=== PATIENT | female | born 1990 | race Hispanic/Latino ===

== ENCOUNTER 2024-03-11 11:48 | Emergency (ER) | payer SELFPAY ==
--- OUTSIDE RECORDS SUMMARY | 2024-03-11 11:55 | XMS REPORT | Continuity of Care Document ---
Author Name Unknown Address [address] [facility] [place] [address] [facility] thconnect Address [address] [facility] [address] [place] [address] Support Name Relationship Address Phone LOR ARCHER SI [address] [place] [address] LOR ARCHER Personal Relationship [address] [facility] [address] [address] [place] [address] NO PHYSICIAN, . Primary Care Physician Unknown Un available MD Janelle Lundberg Emergency Provider [address] [place] [address] ANGEL TOLEDO Next of Kin [address] [place] [address] JOSE TOLEDO Guarantor [address] [place] [address] LOR ARCHER Personal Relationship [address] [place] [address] EDWARD BYRNES, ELISEO Crawford Emergency Provider [address] [place] [address] PHYSICIAN, NO Primary Care Physician Unknown Unav ailable GAIL PINEDA [place] [address] MD PATRICIA PINK Other Provider [address] [place] [address] MD MICHELLE IBARRA Emergency Provider [address] [place] [address] LOR BARNES Emergency Contact [address] [place] [address] Unavailable MD BLAIRE LIMON Emergency Provider [address] [place] [address] MD ELISEO LEON Emergency Provider [address] [place] [address] MD EDOUARD PALENCIA Admitting Provider [address] [place] [address] MD SHAUN HO Emergency Provider [address] [place] [address] Care Team Providers Care Garden Consultant Name Role Phone Janelle Lundberg Attending Clinician Unavailab ASHLEE Sandhu Attending Clinician Unavailable Shaun Ho Attending Clinician Unavailab yoel LANDRY_DMEETRIUS Attending Clinician Unavailable EDOUARD PALENCIA Attending Clinician Unavail able BLAIRE LIMON Attending Clinician Unavailab Patricia Camarillo Attending Clinician Unavailable MICHELLE IBARRA Attending Clinician Unavailabl e KEN Attending Clinician Unavailable AMEENA HECK Attending Clinician Unavailable ELISEO LEON Attending Clinician Unavail able [address] Attending Clinician Unavailable JULIUS QUIÑONES Attending Clinician Unavailable HERMILA BRAVO Attending Clinician Unavailable TORIBIO MARIE Attending Clinician Unavaila URIEL Cazares Attending Clinician Unavaila ble AIDE Admitting Clinician Unavailable EDOUARD PALENCIA Admitting Clinician Unavail able Patricia Pink Admitting Clinician Unavailable KEN Admitting Clinician Unavailable TORIBIO MARIE Admitting Clinician Unavaila MICHELLE Paredes Admitting Clinician Unavailabl e Payers Payer Name Policy Type Policy Number Effective Date Expirati on Date Source [facility] (MEDICAID REPLACEMENT - HMO) [id number] Allergies, Adverse Reactions, Alerts Allergy Name Allergy Type Status Severity Reaction(s) Onset Date Inactive Date Treating Clinician Comments Source No Known Allergie s DA Active U 05-08 00:00: 00 [facility] No Known Allergie s DA Active U 05-08 00:00: 00 [facility] No Known Allergie s DA Active U 12-10 00:00: 00 [facility] Procedures Procedure Date / Time Performed Performing Clinicia n Source [id number] 2021-07-14 00:00:00 [facility]01 [facility] [id number] 2021-07-14 00:00:00 [facility]01 [facility] [id number] 2021-07-14 00:00:00 [facility]01 [facility] [id number] 2021-07-10 00:00:00 [facility]01 [facility] [id number] 2021-07-10 00:00:00 [facility]01 [facility] [id number] 2021-07-10 00:00:00 [facility]01 [facility] Encounters Start Date/Time End Date/Time Encounter Type Admission Type Attending [facility] Facility Care Department Encounter ID Source 2024-01-22 11:17:19 2024-01-22 11:17:[address] [facility] [id number] Jack Martinez 2023-08-13 16:56:00 2023-08-13 18:15:00 emergency [facility] [id number] 2023-08-13 16:56:00 2023-08-13 18:15:00 Emergency ER Janelle Lundberg [facility] [id number] [facility] 2022-12-01 05:12:00 2022-12-01 06:28:00 Emergency ER ASHLEE REYNOSO [facility] [id number] [facility] 2022-05-06 14:27:00 2022-05-06 16:24:00 Emergency ER Shaun Ho [facility] [id number] [facility] 2022-02-08 11:38:00 2022-02-08 11:38:00 Outpatient GRIS_PING DIOR [id number] [facility] 2022-02-08 11:38:00 2022-02-08 11:38:00 Outpatient LISTER_SEEMAI DESEAN [facility] [id number] [facility] 2021-10-21 00:45:00 2021-10-26 14:50:00 Inpatient ER SILVANO PALENCIACindy [facility] [id number] [facility] 2021-10-11 16:47:00 2021-10-11 20:26:00 Emergency ER BLAIRE LIMON [facility] [id number] [facility] 2021-05-23 17:45:00 2021-07-21 19:55:00 Inpatient EL Patricia Pink [facility] OBPP [id number] [facility] 2021-05-26 23:35:00 2021-05-26 23:35:00 [facility] [id number] [facility] 2021-05-08 12:16:00 2021-05-08 17:10:00 Emergency EM Patricia Pink [facility] E[facility]L [id number] [facility] 2021-05-02 11:15:00 2021-05-02 13:14:00 Emergency ER MICHELLE IBARRA [facility] [id number] [facility] 2020-12-20 04:38:00 2020-12-20 04:38:00 Outpatient AMBREEN_RICK [facility] [id number] [facility] 2019-12-08 02:21:00 2019-12-08 02:21:00 Outpatient AMBREEN_FAR HANA [facility] [id number] [facility] 2019-11-29 00:52:00 2019-11-29 03:44:00 Emergency ER AMEENA HECK [facility] [id number] [facility] 2018-10-15 18:20:00 2018-10-15 19:10:00 Emergency ER ELISEO LEON [facility] [id number] [facility] 2017-04-04 12:18:00 2017-04-04 14:59:[address] [facility] [id number] [facility] 2015-10-08 18:45:00 2015-10-08 22:02:00 Emergency ER JULIUS QUIÑONES [facility] [id number] [facility] 2014-12-07 17:36:00 2014-12-07 20:55:00 Emergency ER HERMILA BRAVO [facility] [id number] [facility] 2014-06-20 19:54:00 2014-06-20 22:04:00 Emergency ER Shaun Ho [facility] [id number] [facility] 2012-07-25 04:30:00 2012-07-27 12:00:00 Inpatient TORIBIO ORTIZ [facility] MOB [id number] [facility] 2012-04-07 19:23:00 2012-04-07 21:22:00 Emergency ER BRENT URIEL [facility] [id number] [facility] 2011-11-03 14:15:00 2011-11-03 20:15:00 Inpatient ER TORIBIO MARIE [facility] MOB [id number] [facility] 2011-09-08 18:26:00 2011-09-09 01:16:00 Emergency ER SAMUELMARIANA BURGESSE [facility] [id number] [facility] 2005-08-08 11:07:00 2005-08-08 18:30:00 [facility] [id number] [facility] Results Test Description Test Time Test Comments Results Result Co mments Source CULTURE, [id number] 11:32:26SPECIMEN NUMBER: [id number] CULTURE, ROUTINE SPECIMEN NUMBER: [id number] SPECIMEN COMMENT: AMINTA ANAL SOURCE: ANAL REPORT STATUS: FINAL FINAL REPORT: 01/25/2024 MODERATE NORMAL SKIN WILIAM PRELIMINARY REPORT: 01/24/2024 MODERATE GRAM POSITIVE WILIAM PRELIMINARY REPORT #2: 01/25/2024 MODERATE MIXED GRAM POSITIVE FLORAHGB [id number] 23:15:00* Test Item Value Reference Range Interpretation Comme nts HEMOGLOBIN (test code = HGB) 8.1 g/dL 10.1-13.8 L HEMATOCRIT (test code = HCT) 25.4 % 32.5-41.8 L CBC W/AUTO [id number] 05:57:00* Test Item Value Reference Range Interpretation Comme nts WHITE BLOOD CELL (test code = WBC) 6.9 K/mm3 6.5-12.3 N RED BLOOD CELL (test code = RBC) 1.91 M/mm3 3.51-4.69 L HEMOGLOBIN (test code = HGB) 6.9 g/dL 10.1-13.8 LL RESULTS CALLED Suad GREEN RNREAD BACK & CONFIRMED? YESBY [id number] 07/19/21 0557 HEMATOCRIT (test code = HCT) 22.4 % 32.5-41.8 L MEAN CELL VOLUME (test code = MCV) 117.3 fL 84.6-96.6 H MEAN CELL HGB (test code = MCH) 36.1 pg 27.3-33.9 H MEAN CELL HGB CONCETRATION (test code = MCHC) 30.8 gm/dL 32.0-34.2 L RED CELL DISTRIBUTION WIDTH (test code = RDW) 15.7 % 12.2-16.3 N PLATELET COUNT (test code = PLT) 194 K/mm3 134-363 N MEAN PLATELET VOLUME (test code = MPV) 9.4 fL 9.2-12.7 N NEUTROPHIL % (test code = NT%) 69.5 % 57.9-77.3 N LYMPHOCYTE % (test code = LY%) 18.0 % 14.5-29.7 N MONOCYTE % (test code = MO%) 7.9 % 3.6-10.2 N EOSINOPHIL % (test code = EO%) 3.5 % 0.0-3.0 H BASOPHIL % (test code = BA%) 0.4 % 0.1-0.9 N NEUTROPHIL # (test code = NT#) 4.8 K/mm3 LYMPHOCYTE # (test code = LY#) 1.2 K/mm3 MONOCYTE # (test code = MO#) 0.5 K/mm3 EOSINOPHIL # (test code = EO#) 0.24 K/mm3 BASOPHIL # (test code = BA#) 0.0 K/mm3 RBC MORPHOLOGY REQUIRED (test code = RBCM) NORMAL NORMAL PLATELET MORPHOLOGY REQUIRED (test code = PLTMR) NORMAL NORMAL HGB [id number] 09:11:00* Test Item Value Reference Range Interpretation Comme nts HEMOGLOBIN (test code = HGB) 6.9 g/dL 10.1-13.8 LL RESULTS CALLED Suad SANTILLANREAD BACK & CONFIRMED? YBY [id number] 07/18/21 0911Results verified by repeat analysis HEMATOCRIT (test code = HCT) 22.5 % 32.5-41.8 L BASIC METABOLIC [id number] 09:57:00* Test Item Value Reference Range Interpretation Comme nts SODIUM (test code = NA) 142 mEq/L 135-145 N POTASSIUM (test code = K) 4.9 mEq/L 3.5-5.0 N CHLORIDE (test code = CL) 109 mEq/L 100-115 N CARBON DIOXIDE (test code = CO2) 25 mEq/L 22-31 N ANION GAP (test code = GAP) 12.70 10-20 N GLUCOSE (test code = GLU) 118 mg/dL 65-110 H BLOOD UREA NITROGEN (test co de = BUN) 17 mg/dL 7-18 N GLOMERULAR FILTRATION RATE ( test code = GFR) 64 ml/min >60 N CREATININE (test code = CREAT) 1.0 mg/dL 0.5-1.0 N CALCIUM (test code = CA) 8.1 mg/dL 8.4-10.2 L CBC W/AUTO [id number] 09:31:00* Test Item Value Reference Range Interpretation Comme nts WHITE BLOOD CELL (test code = WBC) 6.7 K/mm3 6.5-12.3 N RED BLOOD CELL (test code = RBC) 1.83 M/mm3 3.51-4.69 L HEMOGLOBIN (test code = HGB) 6.5 g/dL 10.1-13.8 LL RESULTS CALLED Suad Celena FRIEDMAN CORPUZREAD BACK & CONFIRMED? YES BY MANDI 07/16/21 4553 HEMATOCRIT (test code = HCT) 21.3 % 32.5-41.8 L MEAN CELL VOLUME (test code = MCV) 116.4 fL 84.6-96.6 H MEAN CELL HGB (test code = MCH) 35.5 pg 27.3-33.9 H MEAN CELL HGB CONCETRATION (test code = MCHC) 30.5 gm/dL 32.0-34.2 L RED CELL DISTRIBUTION WIDTH (test code = RDW) 15.8 % 12.2-16.3 N PLATELET COUNT (test code = PLT) 171 K/mm3 134-363 N MEAN PLATELET VOLUME (test code = MPV) 9.5 fL 9.2-12.7 N NEUTROPHIL % (test code = NT%) 76.0 % 57.9-77.3 N LYMPHOCYTE % (test code = LY%) 13.6 % 14.5-29.7 L MONOCYTE % (test code = MO%) 6.7 % 3.6-10.2 N EOSINOPHIL % (test code = EO%) 2.8 % 0.0-3.0 N BASOPHIL % (test code = BA%) 0.3 % 0.1-0.9 N NEUTROPHIL # (test code = NT#) 5.1 K/mm3 LYMPHOCYTE # (test code = LY#) 0.9 K/mm3 MONOCYTE # (test code = MO#) 0.5 K/mm3 EOSINOPHIL # (test code = EO#) 0.19 K/mm3 BASOPHIL # (test code = BA#) 0.0 K/mm3 RBC MORPHOLOGY REQUIRED (test code = RBCM) NORMAL NORMAL PLATELET MORPHOLOGY REQUIRED (test code = PLTMR) NORMAL NORMAL CBC W/AUTO [id number] 08:38:00* Test Item Value Reference Range Interpretation Comme nts WHITE BLOOD CELL (test code = WBC) 6.9 K/mm3 6.5-12.3 N RED BLOOD CELL (test code = RBC) 1.83 M/mm3 3.51-4.69 L HEMOGLOBIN (test code = HGB) 6.6 g/dL 10.1-13.8 LL RESULTS CALLED Suad LUNA ARLENEREAD BACK & CONFIRMED? BRITTANY ShaynaSANDY.MR 07/14/21 0836 HEMATOCRIT (test code = HCT) 21.6 % 32.5-41.8 L MEAN CELL VOLUME (test code = MCV) 118.0 fL 84.6-96.6 H MEAN CELL HGB (test code = MCH) 36.1 pg 27.3-33.9 H MEAN CELL HGB CONCETRATION (test code = MCHC) 30.6 gm/dL 32.0-34.2 L RED CELL DISTRIBUTION WIDTH (test code = RDW) 16.0 % 12.2-16.3 N PLATELET COUNT (test code = PLT) 136 K/mm3 134-363 N MEAN PLATELET VOLUME (test code = MPV) 9.9 fL 9.2-12.7 N NEUTROPHIL % (test code = NT%) 78.7 % 57.9-77.3 H LYMPHOCYTE % (test code = LY%) 11.5 % 14.5-29.7 L MONOCYTE % (test code = MO%) 5.3 % 3.6-10.2 N EOSINOPHIL % (test code = EO%) 3.3 % 0.0-3.0 H BASOPHIL % (test code = BA%) 0.3 % 0.1-0.9 N NEUTROPHIL # (test code = NT#) 5.5 K/mm3 LYMPHOCYTE # (test code = LY#) 0.8 K/mm3 MONOCYTE # (test code = MO#) 0.4 K/mm3 EOSINOPHIL # (test code = EO#) 0.23 K/mm3 BASOPHIL # (test code = BA#) 0.0 K/mm3 RBC MORPHOLOGY REQUIRED (test code = RBCM) NORMAL NORMAL PLATELET MORPHOLOGY REQUIRED (test code = PLTMR) NORMAL NORMAL PLACENTA THIRD [id number] 10:35:00* Test Item Value Reference Range Interpretation Comme nts PLACENTA THIRD TRIMESTER (test code = PLACIII) RUN DATE: 08/10/21 [facility] PAGE 1 RUN TIME: 0004 Specimen Inquiry RUN USER: INTERFACE PATIENT: AICHA BARNES LOC: AJIT U #: [id number] AGE/SX: 31/F ROOM: [facility] RE05/23/21REG DR: Patricia Pink MD : 89 BED: A DIS: 07/21/21 STATUS: DIS IN TLOC: SPEC #: [id number] RECD: 07/11/21 STATUS: IRAIS AYON #: [id number] GENI: 07/10/21- SUBM DR: Patricia Pink MD ENTERED: 07/11/21 SP TYPE: PLACIII OTHR DR: Ric Rivera MD ORDERED: LEVEL V SURGICA CODES: [id number] - PLACENTA, NOS COPIES TO: Patricia Pink MD [id number] [place] [address] [email or web address] Ric Rivera MD [address] [place] [address] [email or web address] PROCEDURES: LEVEL V SURGICA (Incomplete) TISSUES: PLACENTA, NOS - PLACENTA CLINICAL HISTORY 31 year old, 33.2 weeks, section, gestational hypertension, PIH (wpd) FINAL DIAGNOSIS Placenta, section: - placenta with third trimester villous morphology, 299 gms (approximately 25th percentile) - villous infarcts, 0.2 - 0.5 cm - subchorionic and perivillous fibrin deposition - few hyalinized avascular villi, suggestive of thrombotic vasculopathy - retroplacental hematomas, up to 0.8 cm - membranes: free of acute inflammation - trivascular umbilical cord: focal minimal acute vasculitis CPT: 98886 ssa/wpd CONTINUED ON NEXT PAGE RUN DATE: 08/10/21 [facility] PAGE 2 RUN TIME: 0004 Specimen Inquiry RUN USER: INTERFACE SPEC #: [id number] PATIENT: AICHA BARNES #[id number] (Continued) --- GROSS DESCRIPTION The specimen was received in a container labeled with the patient's name, unit number and designated "placenta". The following attributes are observed: Cord insertion: 6 cm from margin Cord length: 36 cm Number of vessels: 3 Cord color: Blue-king Other cord findings: None surface findings: Steel blue, wrinkled, glistening Vasculature: Unremarkable blood vasculature Membranes rupture site: 8 cm to margin Membrane color: King Other membrane findings: Thickened and opaque The trimmed placental weight: 299 gm Disk measurement: 21 x 20 x 1.8 cm Accessory lobes: None Maternal surface: Lobulated and intact Parenchyma: Red, beefy, and spongy Parenchyma lesions: Peripheral, king-red, firm lesions measuring up to 0.8 cm and involving less than 5% of the total parenchyma (in A4) Cassettes: A1 through A4 hz/wpd 07/11/21 Signed Yennifer Schmidt 07/13/21 1035 END OF REPORT COMPREHENSIVE METABOLIC [id number] 06:27:00* Test Item Value Reference Range Interpretation Comme nts SODIUM (test code = NA) 140 mEq/L 135-145 N POTASSIUM (test code = K) 5.0 mEq/L 3.5-5.0 N CHLORIDE (test code = CL) 111 mEq/L 100-115 N CARBON DIOXIDE (test code = CO2) 21 mEq/L 22-31 L ANION GAP (test code = GAP) 13.10 10-20 N GLUCOSE (test code = GLU) 93 mg/dL 65-110 N BLOOD UREA NITROGEN (test co de = BUN) 26 mg/dL 7-18 H GLOMERULAR FILTRATION RATE ( test code = GFR) 64 ml/min >60 N CREATININE (test code = CREAT) 1.0 mg/dL 0.5-1.0 N TOTAL PROTEIN (test code = PROT) 5.0 gm/dL 6.3-8.2 L ALBUMIN (test code = ALB) 1.8 gm/dL 3.4-4.8 L CALCIUM (test code = CA) 7.4 mg/dL 8.4-10.2 L BILIRUBIN TOTAL (test code = BILT) 0.1 mg/dL 0.2-1.0 L SGOT/AST (test code = AST) 32 units/L 15-37 N SGPT/ALT (test code = ALT) 21 units/L 12-78 N ALKALINE PHOSPHATASE TOTAL ( test code = ALKP) 82 units/L 46-116 N CBC W/AUTO [id number] 06:11:00* Test Item Value Reference Range Interpretation Comme nts WHITE BLOOD CELL (test code = WBC) 7.7 K/mm3 6.5-12.3 N RED BLOOD CELL (test code = RBC) 1.79 M/mm3 3.51-4.69 L HEMOGLOBIN (test code = HGB) 6.5 g/dL 10.1-13.8 LL RESULTS CALLED Suad MORENO RNREAD BACK & CONFIRMED? YESBY [id number] 07/13/21 0610 HEMATOCRIT (test code = HCT) 21.4 % 32.5-41.8 L MEAN CELL VOLUME (test code = MCV) 119.6 fL 84.6-96.6 H MEAN CELL HGB (test code = MCH) 36.3 pg 27.3-33.9 H MEAN CELL HGB CONCETRATION (test code = MCHC) 30.4 gm/dL 32.0-34.2 L RED CELL DISTRIBUTION WIDTH (test code = RDW) 16.2 % 12.2-16.3 N PLATELET COUNT (test code = PLT) 113 K/mm3 134-363 L MEAN PLATELET VOLUME (test code = MPV) 10.7 fL 9.2-12.7 N NEUTROPHIL % (test code = NT%) 74.9 % 57.9-77.3 N LYMPHOCYTE % (test code = LY%) 15.0 % 14.5-29.7 N MONOCYTE % (test code = MO%) 6.7 % 3.6-10.2 N EOSINOPHIL % (test code = EO%) 2.5 % 0.0-3.0 N BASOPHIL % (test code = BA%) 0.3 % 0.1-0.9 N NEUTROPHIL # (test code = NT#) 5.8 K/mm3 LYMPHOCYTE # (test code = LY#) 1.2 K/mm3 MONOCYTE # (test code = MO#) 0.5 K/mm3 EOSINOPHIL # (test code = EO#) 0.19 K/mm3 BASOPHIL # (test code = BA#) 0.0 K/mm3 RBC MORPHOLOGY REQUIRED (test code = RBCM) NORMAL NORMAL PLATELET MORPHOLOGY REQUIRED (test code = PLTMR) NORMAL NORMAL COMPREHENSIVE METABOLIC [id number] 06:05:00* Test Item Value Reference Range Interpretation Comme nts SODIUM (test code = NA) 134 mEq/L 135-145 L POTASSIUM (test code = K) 4.8 mEq/L 3.5-5.0 N CHLORIDE (test code = CL) 107 mEq/L 100-115 N CARBON DIOXIDE (test code = CO2) 20 mEq/L 22-31 L ANION GAP (test code = GAP) 12.10 10-20 N GLUCOSE (test code = GLU) 124 mg/dL 65-110 H BLOOD UREA NITROGEN (test co de = BUN) 28 mg/dL 7-18 H GLOMERULAR FILTRATION RATE ( test code = GFR) 52 ml/min >60 L CREATININE (test code = CREAT) 1.2 mg/dL 0.5-1.0 H TOTAL PROTEIN (test code = PROT) 5.2 gm/dL 6.3-8.2 L ALBUMIN (test code = ALB) 1.8 gm/dL 3.4-4.8 L CALCIUM (test code = CA) 7.2 mg/dL 8.4-10.2 L BILIRUBIN TOTAL (test code = BILT) 0.1 mg/dL 0.2-1.0 L SGOT/AST (test code = AST) 25 units/L 15-37 N SGPT/ALT (test code = ALT) 20 units/L 12-78 N ALKALINE PHOSPHATASE TOTAL ( test code = ALKP) 93 units/L 46-116 N CBC W/AUTO [id number] 05:53:00* Test Item Value Reference Range Interpretation Comme nts WHITE BLOOD CELL (test code = WBC) 8.7 K/mm3 6.5-12.3 N RED BLOOD CELL (test code = RBC) 1.94 M/mm3 3.51-4.69 L HEMOGLOBIN (test code = HGB) 7.0 g/dL 10.1-13.8 L RESULTS CALLED Suad MORENO RN.READ BACK & CONFIRMED YESBY [id number] 07/12/21 0551 HEMATOCRIT (test code = HCT) 22.8 % 32.5-41.8 L MEAN CELL VOLUME (test code = MCV) 117.5 fL 84.6-96.6 H MEAN CELL HGB (test code = MCH) 36.1 pg 27.3-33.9 H MEAN CELL HGB CONCETRATION (test code = MCHC) 30.7 gm/dL 32.0-34.2 L RED CELL DISTRIBUTION WIDTH (test code = RDW) 16.2 % 12.2-16.3 N PLATELET COUNT (test code = PLT) 107 K/mm3 134-363 L MEAN PLATELET VOLUME (test code = MPV) 10.5 fL 9.2-12.7 N NEUTROPHIL % (test code = NT%) 75.1 % 57.9-77.3 N LYMPHOCYTE % (test code = LY%) 16.6 % 14.5-29.7 N MONOCYTE % (test code = MO%) 6.7 % 3.6-10.2 N EOSINOPHIL % (test code = EO%) 0.6 % 0.0-3.0 N BASOPHIL % (test code = BA%) 0.2 % 0.1-0.9 N NEUTROPHIL # (test code = NT#) 6.5 K/mm3 LYMPHOCYTE # (test code = LY#) 1.4 K/mm3 MONOCYTE # (test code = MO#) 0.6 K/mm3 EOSINOPHIL # (test code = EO#) 0.05 K/mm3 BASOPHIL # (test code = BA#) 0.0 K/mm3 RBC MORPHOLOGY REQUIRED (test code = RBCM) NORMAL NORMAL PLATELET MORPHOLOGY REQUIRED (test code = PLTMR) NORMAL NORMAL PIH [id number] 13:36:00* Test Item Value Reference Range Interpretation Comme nts CREATININE (test code = CREAT) 1.1 mg/dL 0.5-1.0 H SGOT/AST (test code = AST) 35 units/L 15-37 N SGPT/ALT (test code = ALT) 21 units/L 12-78 N LACTIC DEHYDROGENASE(LDH) (t est code = LDH) 434 units/L 81-234 H : *[id number] 13:36:00* Test Item Value Reference Range Interpretation Comme nts MAGNESIUM (test code = MAG) 5.6 mg/dL 1.8-2.4 HH RESULTS VERIFIED BY REPEAT ANALYSISRESULTS CALLED TO OKSANA RamirezREAD BACK & CONFIRMED? YES.BY [email or web address] 07/11/21 1335. : *CBC W/AUTO [id number] 07:06:00* Test Item Value Reference Range Interpretation Comme nts WHITE BLOOD CELL (test code = WBC) 13.3 K/mm3 6.5-12.3 H Results verified by repeat analysis RED BLOOD CELL (test code = RBC) 2.45 M/mm3 3.51-4.69 L HEMOGLOBIN (test code = HGB) 8.8 g/dL 10.1-13.8 L HEMATOCRIT (test code = HCT) 27.8 % 32.5-41.8 L MEAN CELL VOLUME (test code = MCV) 113.5 fL 84.6-96.6 H MEAN CELL HGB (test code = MCH) 35.9 pg 27.3-33.9 H MEAN CELL HGB CONCETRATION (test code = MCHC) 31.7 gm/dL 32.0-34.2 L RED CELL DISTRIBUTION WIDTH (test code = RDW) 15.8 % 12.2-16.3 N PLATELET COUNT (test code = PLT) 116 K/mm3 134-363 L MEAN PLATELET VOLUME (test code = MPV) 10.5 fL 9.2-12.7 N NEUTROPHIL % (test code = NT%) 90.4 % 57.9-77.3 H LYMPHOCYTE % (test code = LY%) 5.5 % 14.5-29.7 L MONOCYTE % (test code = MO%) 3.5 % 3.6-10.2 L EOSINOPHIL % (test code = EO%) 0.0 % 0.0-3.0 N BASOPHIL % (test code = BA%) 0.1 % 0.1-0.9 N NEUTROPHIL # (test code = NT#) 12.0 K/mm3 LYMPHOCYTE # (test code = LY#) 0.7 K/mm3 MONOCYTE # (test code = MO#) 0.5 K/mm3 EOSINOPHIL # (test code = EO#) 0 K/mm3 BASOPHIL # (test code = BA#) 0.0 K/mm3 RBC MORPHOLOGY REQUIRED (test code = RBCM) NORMAL NORMAL PLATELET MORPHOLOGY REQUIRED (test code = PLTMR) NORMAL NORMAL CAPILLARY BLOOD [id number] 21:19:00* Test Item Value Reference Range Interpretation Comme nts CAPILLARY BLOOD GAS PH (test code = PHC) 7.134 7.35-7.45 LL CAPILLARY BLOOD GAS PCO2 (te st code = PCO2C) 55.8 mmHg CAPILLARY BLOOD GAS PO2 (pepe t code = PO2C) 17.4 mmHg CBG HCO3 (test code = HCO3C) 18.3 meq/L CBG BASE EXCESS (test code = BEC) -11.2 CBG O2 SATURATION (test code = SATC) 16.2 % CAPILLARY BLOOD GAS TYPE (te st code = TYPEC) CBLV CAPILLARY BLOOD GAS FIO2 (te st code = FIO2C) 21.0 % CAPILLARY BLOOD [id number] 21:19:00* Test Item Value Reference Range Interpretation Comme nts CAPILLARY BLOOD GAS PH (test code = PHC) 7.039 7.35-7.45 LL CAPILLARY BLOOD GAS PCO2 (te st code = PCO2C) 71.5 mmHg CAPILLARY BLOOD GAS PO2 (pepe t code = PO2C) 10.0 mmHg CBG HCO3 (test code = HCO3C) 18.9 meq/L CBG BASE EXCESS (test code = BEC) -13.0 CAPILLARY BLOOD GAS TYPE (te st code = TYPEC) CBLA CAPILLARY BLOOD GAS FIO2 (te st code = FIO2C) 21.0 % UR CREATININE CLEARANCE [id number] 18:43:00* Test Item Value Reference Range Interpretation Comme nts CREATININE CLEARANCE RESULT (test code = CREATCLR) 94 ml/min 70-120 N CREATININE (test code = CREAT) 1.0 mg/dL 0.5-1.0 N UR CREATININE RANDOM (test c ode = CREATU) 68.6 mg/dL UR VOLUME (test code = VOL) 2000 ML UR PROTEIN [id number] 18:43:00* Test Item Value Reference Range Interpretation Comme nts UR PROTEIN RANDOM (test code = PROTU) 224.4 mg/dL UR PROTEIN 24HR (test code = [id number]) 4488 mg/24HR 20-150 HH RESULTS CALLED Suad ERNST.READ BACK & CONFIRMED? YES.BY [id number] 07/10/21 6033.Units for 24 HR Urine Protein have changed: New Units = MG/24HR [facility] [id number] 06:48:00* Test Item Value Reference Range Interpretation Comme nts CREATININE (test code = CREAT) 1.0 mg/dL 0.5-1.0 N SGOT/AST (test code = AST) 26 units/L 15-37 N SGPT/ALT (test code = ALT) 18 units/L 12-78 N LACTIC DEHYDROGENASE(LDH) (t est code = LDH) 237 units/L 81-234 H : *CBC W/AUTO [id number] 06:41:00* Test Item Value Reference Range Interpretation Comme nts WHITE BLOOD CELL (test code = WBC) 6.8 K/mm3 6.5-12.3 N RED BLOOD CELL (test code = RBC) 2.46 M/mm3 3.51-4.69 L HEMOGLOBIN (test code = HGB) 8.8 g/dL 10.1-13.8 L HEMATOCRIT (test code = HCT) 27.5 % 32.5-41.8 L MEAN CELL VOLUME (test code = MCV) 111.8 fL 84.6-96.6 H MEAN CELL HGB (test code = MCH) 35.8 pg 27.3-33.9 H MEAN CELL HGB CONCETRATION ( test code = MCHC) 32.0 gm/dL 32.0-34.2 N RED CELL DISTRIBUTION WIDTH (test code = RDW) 15.7 % 12.2-16.3 N PLATELET COUNT (test code = PLT) 116 K/mm3 134-363 L MEAN PLATELET VOLUME (test c ode = MPV) 10.2 fL 9.2-12.7 N NEUTROPHIL % (test code = NT%) 71.2 % 57.9-77.3 N LYMPHOCYTE % (test code = LY%) 18.3 % 14.5-29.7 N MONOCYTE % (test code = MO%) 6.3 % 3.6-10.2 N EOSINOPHIL % (test code = EO%) 3.2 % 0.0-3.0 H BASOPHIL % (test code = BA%) 0.4 % 0.1-0.9 N NEUTROPHIL # (test code = NT#) 4.9 K/mm3 LYMPHOCYTE # (test code = LY#) 1.3 K/mm3 MONOCYTE # (test code = MO#) 0.4 K/mm3 EOSINOPHIL # (test code = EO#) 0.22 K/mm3 BASOPHIL # (test code = BA#) 0.0 K/mm3 RBC MORPHOLOGY REQUIRED (pepe t code = RBCM) NORMAL NORMAL PLATELET MORPHOLOGY REQUIRED (test code = PLTMR) NORMAL NORMAL PIH [id number] 14:51:00* Test Item Value Reference Range Interpretation Comme nts CREATININE (test code = CREAT) 1.1 mg/dL 0.5-1.0 H SGOT/AST (test code = AST) 28 units/L 15-37 N SGPT/ALT (test code = ALT) 19 units/L 12-78 N LACTIC DEHYDROGENASE(LDH) (t est code = LDH) 229 units/L 81-234 N : *CBC W/AUTO [id number] 13:41:00* Test Item Value Reference Range Interpretation Comme nts WHITE BLOOD CELL (test code = WBC) 8.4 K/mm3 6.5-12.3 N RED BLOOD CELL (test code = RBC) 2.34 M/mm3 3.51-4.69 L HEMOGLOBIN (test code = HGB) 8.4 g/dL 10.1-13.8 L HEMATOCRIT (test code = HCT) 26.4 % 32.5-41.8 L MEAN CELL VOLUME (test code = MCV) 112.8 fL 84.6-96.6 H MEAN CELL HGB (test code = MCH) 35.9 pg 27.3-33.9 H MEAN CELL HGB CONCETRATION ( test code = MCHC) 31.8 gm/dL 32.0-34.2 L RED CELL DISTRIBUTION WIDTH (test code = RDW) 15.8 % 12.2-16.3 N PLATELET COUNT (test code = PLT) 124 K/mm3 134-363 L MEAN PLATELET VOLUME (test c ode = MPV) 10.7 fL 9.2-12.7 N NEUTROPHIL % (test code = NT%) 72.4 % 57.9-77.3 N LYMPHOCYTE % (test code = LY%) 17.5 % 14.5-29.7 N MONOCYTE % (test code = MO%) 6.6 % 3.6-10.2 N EOSINOPHIL % (test code = EO%) 2.6 % 0.0-3.0 N BASOPHIL % (test code = BA%) 0.4 % 0.1-0.9 N NEUTROPHIL # (test code = NT#) 6.1 K/mm3 LYMPHOCYTE # (test code = LY#) 1.5 K/mm3 MONOCYTE # (test code = MO#) 0.6 K/mm3 EOSINOPHIL # (test code = EO#) 0.22 K/mm3 BASOPHIL # (test code = BA#) 0.0 K/mm3 RBC MORPHOLOGY REQUIRED (pepe t code = RBCM) NORMAL NORMAL PLATELET MORPHOLOGY REQUIRED (test code = PLTMR) NORMAL NORMAL UR PROTEIN/CREATININE [id number] 11:48:00* Test Item Value Reference Range Interpretation Comme nts UR PROTEIN RANDOM (test code = PROTU) 395.6 mg/dL UR CREATININE RANDOM (test code = CREATU) 124.9 mg/dL PROTEIN/CREATININE RATIO (test code = P/CRATIO) 3167.3 mg/gcrea <200 H [id number] 20:43:00* Test Item Value Reference Range Interpretation Comme nts GLUBED (test code = GLUBED) 124 mg/dL 65-110 H [id number] 14:14:00* Test Item Value Reference Range Interpretation Comme nts GLUBED (test code = GLUBED) 98 mg/dL 65-110 N [id number] 09:46:00* Test Item Value Reference Range Interpretation Comme nts GLUBED (test code = GLUBED) 85 mg/dL 65-110 N [id number] 06:30:00* Test Item Value Reference Range Interpretation Comme nts GLUBED (test code = GLUBED) 93 mg/dL 65-110 N [id number] 20:01:00* Test Item Value Reference Range Interpretation Comme nts GLUBED (test code = GLUBED) 103 mg/dL 65-110 N [id number] 14:19:00* Test Item Value Reference Range Interpretation Comme nts GLUBED (test code = GLUBED) 136 mg/dL 65-110 H [id number] 10:07:00* Test Item Value Reference Range Interpretation Comme nts GLUBED (test code = GLUBED) 137 mg/dL 65-110 H [id number] 06:01:00* Test Item Value Reference Range Interpretation Comme nts GLUBED (test code = GLUBED) 95 mg/dL 65-110 N [id number] 19:44:00* Test Item Value Reference Range Interpretation Comme nts GLUBED (test code = GLUBED) 127 mg/dL 65-110 H [id number] 14:35:00* Test Item Value Reference Range Interpretation Comme nts GLUBED (test code = GLUBED) 107 mg/dL 65-110 N [id number] 10:40:00* Test Item Value Reference Range Interpretation Comme nts GLUBED (test code = GLUBED) 125 mg/dL 65-110 H [id number] 07:48:00* Test Item Value Reference Range Interpretation Comme nts GLUBED (test code = GLUBED) 89 mg/dL 65-110 N VITAMIN [id number] 11:35:00* Test Item Value Reference Range Interpretation Comme nts VITAMIN B12 (test code = VITB12) 423 pg/mL 239-931 FOLIC [id number] 11:35:00* Test Item Value Reference Range Interpretation Comme nts FOLIC ACID (test code = FOL) 13.1 ng/mL See_Comment REFERENCE VALUES : NORMAL: 2.76 - >20 ng/ML DEFICIENT: 1.04 - 2.79 ng/ML [Automated message] The system which generated this result transmitted reference range: (). The reference range was not used to interpret this result as normal/abnormal. [id number] 11:35:00* Test Item Value Reference Range Interpretation Comme nts FERRITIN (test code = FLORENCIO) 66.5 NG/ML 6.24-137 HGB [id number] 11:35:00* Test Item Value Reference Range Interpretation Comme nts HEMOGLOBIN A1 (test code = HGBA1) 97.2 % Reference Interv al - 96.4-98.8 HEMOGLOBIN A2 (test code = HGBA2) 2.2 1.5-3.5 N HEMOGLOBIN S (test code = HGBS) 0 % HEMOGLOBIN F (test code = HGBF) 0.6 0-2 N HGB ELECTROPHORESIS INTERP (test code = HGBINT) Normal adul t hemoglobin present. VITAMIN [id number] 17:22:00* Test Item Value Reference Range Interpretation Comme nts VITAMIN B12 (test code = VITB12) 423 pg/mL 239-931 FOLIC [id number] 17:22:00* Test Item Value Reference Range Interpretation Comme nts FOLIC ACID (test code = FOL) 13.1 ng/mL See_Comment REFERENCE VALUES : NORMAL: 2.76 - >20 ng/ML DEFICIENT: 1.04 - 2.79 ng/ML [Automated message] The system which generated this result transmitted reference range: (). The reference range was not used to interpret this result as normal/abnormal. [id number] 17:22:00* Test Item Value Reference Range Interpretation Comme nts FERRITIN (test code = FLORENCIO) 66.5 NG/ML 6.24-137 HGB [id number] 17:22:00* Test Item Value Reference Range Interpretation Comme nts HEMOGLOBIN A1 (test code = HGBA1) % HEMOGLOBIN A2 (test code = HGBA2) 1.5-3.5 HEMOGLOBIN S (test code = HGBS) % HEMOGLOBIN C (test code = HGBC) HEMOGLOBIN F (test code = HGBF) 0-2 HEMOGLOBIN SOLUBILITY (test code = HGBSOL) HEMOGLOBIN VARIANT (test code = HGBVAR) HGB ELECTROPHORESIS INTERP ( test code = HGBINT) VITAMIN [id number] 17:22:00* Test Item Value Reference Range Interpretation Comme nts VITAMIN B12 (test code = VITB12) 423 pg/mL 239-931 N FOLIC ACID BY [id number] 17:22:00* Test Item Value Reference Range Interpretation Comme nts FOLIC ACID BY GALDINO (test code = FOLR) 13.1 ng/mL REFERENCE ANN UES: NORMAL: 2.76 - >20 ng/ML DEFICIENT: 1.04 - 2.79 ng/ML [id number] 17:22:00* Test Item Value Reference Range Interpretation Comme nts FERRITIN (test code = FLORENCIO) 66.5 NG/ML 6.24-137 N FOLIC ACID BY [id number] 16:50:00* Test Item Value Reference Range Interpretation Comme nts FOLIC ACID BY GALDINO (test code = FOLR) ng/mL [id number] 16:50:00* Test Item Value Reference Range Interpretation Comme nts FERRITIN (test code = FLORENCIO) 66.5 NG/ML 6.24-137 N VITAMIN [id number] 16:50:00* Test Item Value Reference Range Interpretation Comme nts VITAMIN B12 (test code = VITB12) FOLIC [id number] 16:50:00* Test Item Value Reference Range Interpretation Comme nts FOLIC ACID (test code = FOL) [id number] 16:50:00* Test Item Value Reference Range Interpretation Comme nts FERRITIN (test code = FLORENCIO) 66.5 NG/ML 6.24-137 HGB [id number] 16:50:00* Test Item Value Reference Range Interpretation Comme nts HEMOGLOBIN A1 (test code = HGBA1) % HEMOGLOBIN A2 (test code = HGBA2) 1.5-3.5 HEMOGLOBIN S (test code = HGBS) % HEMOGLOBIN C (test code = HGBC) HEMOGLOBIN F (test code = HGBF) 0-2 HEMOGLOBIN SOLUBILITY (test code = HGBSOL) HEMOGLOBIN VARIANT (test code = HGBVAR) HGB ELECTROPHORESIS INTERP ( test code = HGBINT) VITAMIN [id number] 16:50:00* Test Item Value Reference Range Interpretation Comme nts VITAMIN B12 (test code = VITB12) pg/mL 239-931 TOTAL IRON BINDING [id number] 16:25:00* Test Item Value Reference Range Interpretation Comme nts SERUM IRON (test code = IRON) 140 MCG/DL 37-170 TOTAL IRON BINDING CAPACITY (test code = TIBC) 413 MCG/DL 265-497 IRON SATURATION (test code = FESAT) 34 % 12-57 : *(Hit ENTER to Con't) .FE W/TOTAL IRON BINDING CAP.2021-05-27 16:24:00* Test Item Value Reference Range Interpretation Comme nts SERUM IRON (test code = IRON) 140 MCG/DL 37-170 N TOTAL IRON BINDING CAPACITY (test code = TIBC) 413 MCG/DL 265-497 N IRON SATURATION (test code = FESAT) 34 % 12-57 N : *(Hit ENTER to Con't) .TOTAL IRON BINDING [id number] 16:14:00* Test Item Value Reference Range Interpretation Comme nts SERUM IRON (test code = IRON) 140 MCG/DL 37-170 TOTAL IRON BINDING CAPACITY (test code = TIBC) IRON SATURATION (test code = FESAT) : *(Hit ENTER to Con't) .FE W/TOTAL IRON BINDING CAP.2021-05-27 16:13:00* Test Item Value Reference Range Interpretation Comme nts SERUM IRON (test code = IRON) 140 MCG/DL 37-170 N TOTAL IRON BINDING CAPACITY (test code = TIBC) MCG/DL 265-497 IRON SATURATION (test code = FESAT) % 12-57 : *(Hit ENTER to Con't) .HGB [id number] 23:28:00* Test Item Value Reference Range Interpretation Comme nts HEMOGLOBIN (test code = HGB) 8.4 g/dL 10.1-13.8 L HEMATOCRIT (test code = HCT) 26.2 % 32.5-41.8 L UR CREATININE CLEARANCE [id number] 19:34:00* Test Item Value Reference Range Interpretation Comme nts CREATININE CLEARANCE RESULT (test code = CREATCLR) 104 ml/min 70-120 N CREATININE (test code = CREAT) 0.9 mg/dL 0.5-1.0 N UR CREATININE RANDOM (test c ode = CREATU) 52.9 mg/dL UR VOLUME (test code = VOL) 2590 ML UR PROTEIN [id number] 19:34:00* Test Item Value Reference Range Interpretation Comme nts UR PROTEIN RANDOM (test code = PROTU) 10.1 mg/dL UR PROTEIN 24HR (test code = [id number]) 262 mg/24HR 20-150 HH RESULTS CALLED Suad GARCIA READ BACK & CONFIRMED?YES .BY [id number] 05/24/211931.Units for 24 HR Urine Protein have changed: New Units = MG/24HR COMPREHENSIVE METABOLIC [id number] 23:29:00* Test Item Value Reference Range Interpretation Comme nts SODIUM (test code = NA) 140 mEq/L 135-145 N POTASSIUM (test code = K) 4.1 mEq/L 3.5-5.0 N CHLORIDE (test code = CL) 104 mEq/L 100-115 N CARBON DIOXIDE (test code = CO2) 24 mEq/L 22-31 N ANION GAP (test code = GAP) 16.20 10-20 N GLUCOSE (test code = GLU) 128 mg/dL 65-110 H BLOOD UREA NITROGEN (test code = BUN) 10 mg/dL 7-18 N GLOMERULAR FILTRATION RATE (test code = GFR) 73 ml/min >60 N CREATININE (test code = CREAT) 0.9 mg/dL 0.5-1.0 N TOTAL PROTEIN (test code = PROT) 6.4 gm/dL 6.3-8.2 N ALBUMIN (test code = ALB) 2.9 gm/dL 3.4-4.8 L CALCIUM (test code = CA) 8.5 mg/dL 8.4-10.2 N RESULTS CALLED T Celena VILLA.READ BACK & CONFIRMED? YES.BY [id number] 05/23/211930.Previously reported result: <5.0 mg/dLEdited by: [email or web address] on 05/23/21:2329CA prev. reported as:<5.0 *L mg/dL. RESULTS CALLED TO DAISY.. READ BACK & CONFIRMED? YES. BY [id number] 05/23/211930. BILIRUBIN TOTAL (test code = BILT) <0.1 mg/dL 0.2-1.0 L SGOT/AST (test code = AST) 2 units/L 15-37 L SGPT/ALT (test code = ALT) <6 units/L 12-78 L ALKALINE PHOSPHATASE TOTAL (test code = ALKP) 88 units/L 46-116 N COMPREHENSIVE METABOLIC [id number] 21:27:00* Test Item Value Reference Range Interpretation Comme nts SODIUM (test code = NA) 140 mEq/L 135-145 N POTASSIUM (test code = K) 4.1 mEq/L 3.5-5.0 N CHLORIDE (test code = CL) 104 mEq/L 100-115 N CARBON DIOXIDE (test code = CO2) 24 mEq/L 22-31 N ANION GAP (test code = GAP) 16.20 10-20 N GLUCOSE (test code = GLU) 128 mg/dL 65-110 H BLOOD UREA NITROGEN (test code = BUN) 10 mg/dL 7-18 N GLOMERULAR FILTRATION RATE (test code = GFR) 73 ml/min >60 N CREATININE (test code = CREAT) 0.9 mg/dL 0.5-1.0 N TOTAL PROTEIN (test code = PROT) 6.4 gm/dL 6.3-8.2 N ALBUMIN (test code = ALB) 2.9 gm/dL 3.4-4.8 L CALCIUM (test code = CA) <5.0 mg/dL 8.4-10.2 LL RESULTS CALLED Suad VILLA.READ BACK & CONFIRMED? YES.BY [id number] 05/23/211930. BILIRUBIN TOTAL (test code = BILT) <0.1 mg/dL 0.2-1.0 L SGOT/AST (test code = AST) 2 units/L 15-37 L SGPT/ALT (test code = ALT) <6 units/L 12-78 L ALKALINE PHOSPHATASE TOTAL (test code = ALKP) 88 units/L 46-116 N AG HEPATITIS B [id number] 20:55:00* Test Item Value Reference Range Interpretation Comme nts AG HEPATITIS B SURFACE (test code = HBSAG) NONREACTIVE NONREACTIVE AB HEPATITIS C [id number] 20:55:00* Test Item Value Reference Range Interpretation Comme nts AB HEPATITIS C (test code = HCVAB) NONREACTIVE NONREACTIVE SIGNAL TO CUTOFF (test code = CUTOFF) <0.02 <0.80 N AB [id number] 20:55:00* Test Item Value Reference Range Interpretation Comme nts AB TREPONEMA (test code = TREPAB) NONREACTIVE NONREACTIVE AB HIV 1 20:55:00* Test Item Value Reference Range Interpretation Comme nts AB HIV 1 2 (test code = [id number]) NONREACTIVE NONREACTIVE Done by [employer] HIV Ag/Ab Combo Screen AG HEPATITIS B [id number] 20:27:00* Test Item Value Reference Range Interpretation Comme nts AG HEPATITIS B SURFACE (test code = HBSAG) NONREACTIVE NONREACTIVE AB HEPATITIS C [id number] 20:27:00* Test Item Value Reference Range Interpretation Comme nts AB HEPATITIS C (test code = HCVAB) NONREACTIVE SIGNAL TO CUTOFF (test code = CUTOFF) <0.80 AB [id number] 20:27:00* Test Item Value Reference Range Interpretation Comme nts AB TREPONEMA (test code = TREPAB) NONREACTIVE NONREACTIVE AB HIV 1 20:27:00* Test Item Value Reference Range Interpretation Comme nts AB HIV 1 2 (test code = [id number]) NONREACTIVE COVID 19 Asymptomatic IH [id number] 20:17:00* Test Item Value Reference Range Interpretation Comme nts COVID 19 Asymptomatic IH AG (test code = COVNONPUIAG) NEGATIVE NEGATIVE This test has be en authorized only for the detection ofproteins from SARS-CoV-2, not for any other viruses orpathogens. Negative results should be treated as presumptive andconfirmed with a molecular assay, if necessary for patientmanagement. Negative results do not rule out COVID-19 andshould not be used as the sole basis for treatment orpatient management decisions, including infection controldecisions. Negative results should be considered in thecontext of a patient's recent exposures, history and thepresence of clinical signs and symptoms consistent withCOVID-19. This test has not been FDA cleared or approved; the test hasbeen authorized by FDA under an Emergency Use Authorization(EUA) for use by laboratories certified under the CLIA thatmeet the requirements to perform moderate, high or waivedcomplexity tests. This test is authorized for use at thePoint of Care (POC), i.e., in patient care settingsoperating under a CLIA Certificate of Waiver, Certificate ofCompliance, or Certificate of Accreditation. This test is only authorized for the duration of thedeclaration that circumstances exist justifying theauthorization of emergency use of in vitro diagnostic testsfor detection and/or diagnosis of COVID-19 under Dmvmdew727(b)(1) of the Act, 21 U.S.C. 360bbb-3(b)(1), unless theauthorization is terminated or revoked sooner. COMPREHENSIVE METABOLIC [id number] 19:31:00* Test Item Value Reference Range Interpretation Comme nts SODIUM (test code = NA) mEq/L 135-145 POTASSIUM (test code = K) mEq/L 3.5-5.0 CHLORIDE (test code = CL) mEq/L 100-115 CARBON DIOXIDE (test code = CO2) mEq/L 22-31 ANION GAP (test code = GAP) 10-20 GLUCOSE (test code = GLU) mg/dL 65-110 BLOOD UREA NITROGEN (test code = BUN) mg/dL 7-18 CREATININE (test code = CREAT) mg/dL 0.5-1.0 TOTAL PROTEIN (test code = PROT) gm/dL 6.3-8.2 ALBUMIN (test code = ALB) gm/dL 3.4-4.8 CALCIUM (test code = CA) <5.0 mg/dL 8.4-10.2 LL RESULTS CALLED Suad VILLA.READ BACK & CONFIRMED? YES.BY [id number] 05/23/211930. BILIRUBIN TOTAL (test code = BILT) <0.1 mg/dL 0.2-1.0 L SGOT/AST (test code = AST) 2 units/L 15-37 L SGPT/ALT (test code = ALT) <6 units/L 12-78 L ALKALINE PHOSPHATASE TOTAL (test code = ALKP) units/L 46-116 CBC W/AUTO [id number] 19:31:00* Test Item Value Reference Range Interpretation Comme nts WHITE BLOOD CELL (test code = WBC) 8.3 K/mm3 6.5-12.3 N RED BLOOD CELL (test code = RBC) 2.49 M/mm3 3.51-4.69 L HEMOGLOBIN (test code = HGB) 8.9 g/dL 10.1-13.8 L HEMATOCRIT (test code = HCT) 27.4 % 32.5-41.8 L MEAN CELL VOLUME (test code = MCV) 110.0 fL 84.6-96.6 H MEAN CELL HGB (test code = MCH) 35.7 pg 27.3-33.9 H MEAN CELL HGB CONCETRATION (test code = MCHC) 32.5 gm/dL 32.0-34.2 N RED CELL DISTRIBUTION WIDTH (test code = RDW) 15.5 % 12.2-16.3 N PLATELET COUNT (test code = PLT) 193 K/mm3 134-363 N MEAN PLATELET VOLUME (test code = MPV) 10.0 fL 9.2-12.7 N MANUAL DIFF REQUIRED (test code = MDIFF) YES RBC MORPHOLOGY REQUIRED (test code = RBCM) ABNORMAL NORMAL Previously re ported result: NORMAL Edited by: [id number] on 05/23/21:1925RBCM prev. reported as:NORMAL . . PLATELET MORPHOLOGY REQUIRED (test code = PLTMR) NORMAL NORMAL WBC [id number] 19:31:00* Test Item Value Reference Range Interpretation Comme nts TOTAL CELLS COUNTED (test co de = TCC) 100 #CELLS SEGMENTED NEUTROPHILS (test code = SEG) 80 % 56.5-79.4 H LYMPHOCYTE (test code = LYMPH) 17 % 20-40 L MONOCYTE (test code = MON) 3 % 0-8 N MACROCYTOSIS (test code = MACR) 1+ PLATELET ESTIMATE (test code = PLTEST) ADEQUATE ADEQ PLATELET MORPHOLOGY (test co de = PLTMORPH) NORMAL NORMAL CBC W/AUTO [id number] 19:24:00* Test Item Value Reference Range Interpretation Comme nts WHITE BLOOD CELL (test code = WBC) 8.3 K/mm3 6.5-12.3 N RED BLOOD CELL (test code = RBC) 2.49 M/mm3 3.51-4.69 L HEMOGLOBIN (test code = HGB) 8.9 g/dL 10.1-13.8 L HEMATOCRIT (test code = HCT) 27.4 % 32.5-41.8 L MEAN CELL VOLUME (test code = MCV) 110.0 fL 84.6-96.6 H MEAN CELL HGB (test code = MCH) 35.7 pg 27.3-33.9 H MEAN CELL HGB CONCETRATION ( test code = MCHC) 32.5 gm/dL 32.0-34.2 N RED CELL DISTRIBUTION WIDTH (test code = RDW) 15.5 % 12.2-16.3 N PLATELET COUNT (test code = PLT) 193 K/mm3 134-363 N MEAN PLATELET VOLUME (test c ode = MPV) 10.0 fL 9.2-12.7 N MANUAL DIFF REQUIRED (test c ode = MDIFF) YES RBC MORPHOLOGY REQUIRED (pepe t code = RBCM) NORMAL NORMAL PLATELET MORPHOLOGY REQUIRED (test code = PLTMR) NORMAL NORMAL WBC [id number] 19:24:00* Test Item Value Reference Range Interpretation Comme nts SEGMENTED NEUTROPHILS (test code = SEG) % 56.5-79 .4 LYMPHOCYTE (test code = LYMPH) % 20-40 PIH [id number] 19:24:00* Test Item Value Reference Range Interpretation Comme nts CREATININE (test code = CREAT) 0.9 mg/dL 0.5-1.0 N SGOT/AST (test code = AST) 17 units/L 15-37 N SGPT/ALT (test code = ALT) 18 units/L 12-78 N LACTIC DEHYDROGENASE(LDH) (t est code = LDH) 159 units/L 81-234 N : *CBC W/AUTO [id number] 19:24:00* Test Item Value Reference Range Interpretation Comme nts WHITE BLOOD CELL (test code = WBC) 8.3 K/mm3 6.5-12.3 N RED BLOOD CELL (test code = RBC) 2.49 M/mm3 3.51-4.69 L HEMOGLOBIN (test code = HGB) 8.9 g/dL 10.1-13.8 L HEMATOCRIT (test code = HCT) 27.4 % 32.5-41.8 L MEAN CELL VOLUME (test code = MCV) 110.0 fL 84.6-96.6 H MEAN CELL HGB (test code = MCH) 35.7 pg 27.3-33.9 H MEAN CELL HGB CONCETRATION ( test code = MCHC) 32.5 gm/dL 32.0-34.2 N RED CELL DISTRIBUTION WIDTH (test code = RDW) 15.5 % 12.2-16.3 N PLATELET COUNT (test code = PLT) 193 K/mm3 134-363 N MEAN PLATELET VOLUME (test c ode = MPV) 10.0 fL 9.2-12.7 N MANUAL DIFF REQUIRED (test c ode = MDIFF) YES RBC MORPHOLOGY REQUIRED (pepe t code = RBCM) NORMAL NORMAL PLATELET MORPHOLOGY REQUIRED (test code = PLTMR) NORMAL NORMAL WBC [id number] 19:24:00* Test Item Value Reference Range Interpretation Comme nts SEGMENTED NEUTROPHILS (test code = SEG) % 56.5-79 .4 LYMPHOCYTE (test code = LYMPH) % 20-40 Coronavirus 2019 nCoV [id number] 15:44:00* Test Item Value Reference Range Interpretation Comme nts Coronavirus 2019 nCoV Bedside (test code = [id number]) Negative Negative This result does not rule out co-infections with otherpathogens. * False negative results may occur if a specimen isimproperly collected, transported or handled. False negativeresults may also occur if amplification inhibitors arepresent in the specimen or if inadequate levels of virusesare present in the specimen. * As with any molecular test, if the virus mutates in [facility] region, COVID-19 may not be detected or may bedetected less predictably.TEST PERFORMED UNDER AN EMERGENCY USE AUTHORIZATION FROM URINALYSIS [id number] 13:59:00* Test Item Value Reference Range Interpretation Comme nts UA COLOR (test code = COLU) CORI YELLOW A UA APPEARANCE (test code = APPU) CLOUDY CLEAR A UA GLUCOSE DIPSTICK (test co de = DGLUU) NEGATIVE NEG UA BILIRUBIN DIPSTICK (test code = BILU) NEGATIVE NEG UA KETONE DIPSTICK (test cod e = KETU) NEGATIVE NEG UA SPECIFIC GRAVITY (test co de = SGU) 1.025 1.001-1.035 N UA BLOOD DIPSTICK (test code = DEVIN) NEG NEG UA PH DIPSTICK (test code = KIAN) 6.0 5-9 UA PROTEIN DIPSTICK (test co de = PROU) 1+ NEG A UA UROBILINIOGEN DIPSTICK (t est code = URO) 2.0 mg/dL NEG UA NITRITE DIPSTICK (test co de = TERESA) NEG NEG UA LEUKOCYTE ESTERASE DIPSTI CK (test code = LEUU) TRACE NEG A UA WBC (test code = WBCU) 6-10 #/hpf NONE SEEN A UA RBC (test code = RBCU) 3-5 #/hpf NONE SEEN A UA EPITHELIAL CELLS (test co de = EPIU) MANY #/HPF RARE-FEW A UA BACTERIA (test code = BACU) RARE /HPF RARE-FEW UA MUCUS (test code = MUCU) RARE NONE SEEN URINE SAMPLE: CLEAN CATCH- US [id number] 00:00:00 [facility] DOB: 1990 Sex: F Patient Name: AICHA BARNES Unit No: [id number] EXAMS: CPT CODE: [id number] [place] LTD 03595 PROCEDURE INFORMATION: Exam: US , Limited and US , Transvaginal Exam dateand time: 05/08/2021 2:06 PM Age: 31 years old Clinical indication: Lmp or gestational age (in weeks): 24w2d; Other: Contractions; ; Prior surgery; Surgery date: 6+ months; Surgery type: x2; Additional info: Iup at 24.1 weeks C/O abd pain and lower back pain poor TECHNIQUE: Imagingprotocol: Real-time ultrasound of the maternal uterus with image documentation. Transvaginal imaging was used for better evaluation of the fetus, adnexa, and/or cervix. Exam focused on the clinical indication. COMPARISON: No relevant prior studies available. FINDINGS: Last menstrual period: 11/19/2020. Beta HCG: Unknown. Gestation: Intrauterine gestation sac identified. Single fetus is identified. heart rate: cardiac motion: 141 beats per minute. Presentation: Transverse. The head is positioned towards the maternal left side. Placenta: Placenta location: Posterior fundus. Placenta grade: 1. No evidence for placenta previa. Amniotic fluid: Amniotic fluid appears grossly unremarkable for gestational age. Amniotic fluid index is 14.0 cm. MATERNAL: Uterus: Unremarkable. Cervix: Grossly unremarkable. This cervix measures up to 4.4 cm. Right adnexa: Not assessed. Left adnexa: Not assessed. IMPRESSION: Single viable intrauterine . See above details. at 1502 Reported and signed by: Panchito Gunter MD CC: Patricia Pink Technologist: Kassie Toledo RDMS Probe: Trnscrbd D/ (9400) GCD.CPS Orig Print D/T: S: 05/08/2021 (1504) [facility] NAME: BARNES,AICHAMICHELE CLAUDIO Radiology Department PHYS: Patricia Hernandez MD [address] : 1990 AGE: 31 SEX: F [place], [place] [address] LOC: F.EARL PHONE #: [phone] EXAM DATE: 05/08/2021 STATUS: REG ER FAX #: [phone] RAD NO: Page 1 Signed Report Patient Name: AICHA BARNES Unit No: [id number] EXAMS: CPT CODE: [id number] US LTD 43730 (Continued) [facility] NAME: AICHA BARNES Radiology Department PHYS: Patricia Hernandez MD [address] : 1990 AGE: 31 SEX: F [place], [place] [address] LOC: F.EARL PHONE #: [phone] EXAM DATE: 05/08/2021 STATUS: REG ER FAX #: [phone] RAD NO: Page 2 Signed Report- US PREG UT [id number] 00:00:00 [facility] : 1990 Sex: F Patient Name: AICHA BARNES Unit No: [id number] EXAMS: CPT CODE: [id number] US PREG UT TRANSVAGINAL 26111 PROCEDURE INFORMATION: Exam: US , Limited and US , Transvaginal Exam date and time: 05/08/2021 2:06 PM Age: 31 years old Clinical indication: Lmp or gestational age (inweeks): 24w2d; Other: Contractions; ; Prior surgery; Surgery date: 6+ months; Surgery type:C- section x2; Additional info: Iup at 24.1 weeks C/O abd pain and lower back pain poor TECHNIQUE: Imaging protocol: Real-time ultrasound of the maternal uterus with image documentation. Transvaginal imaging was used for better evaluation of the fetus, adnexa, and/or cervix. Exam focused onthe clinical indication. COMPARISON: No relevant prior studies available. FINDINGS: Last menstrual period: 11/19/2020. Beta HCG: Unknown. Gestation: Intrauterine gestation sac identified. Single fetus is identified. heart rate: cardiac motion: 141 beats per minute. Presentation: Transverse. The head is positioned towards the maternal left side. Placenta: Placenta location: Posterior fundus. Placenta grade: 1. No evidence for placenta previa. Amniotic fluid: Amniotic fluid appears grossly unremarkable for gestational age. Amniotic fluid index is 14.0 cm. MATERNAL: Uterus: Unremarkable. Cervix: Grossly unremarkable. This cervix measures up to 4.4 cm. Right adnexa: Not assessed. Left adnexa: Not assessed. IMPRESSION: Single viable intrauterine . See above details. at 1504 Reported and signed by: Panchito Gunter MD CC: Ira Vargas DO Technologist: Kassie Toledo RDMS Probe: [id number] Trnscrbd D/ (1504) GCD.CPS Orig Print D/T: S: 05/08/2021 (1504) [facility] as NAME: AICHA BARNES Radiology Department PHYS: Ira More DO [address] : 1990 AGE: 31 SEX: F [place], [place] [address] LOC: HirenEARL PHONE #: [phone] EXAM DATE: 05/08/2021 STATUS: REG ER FAX #: [phone] RAD NO: Page 1 Signed Report Patient Name: AICHA BARNESN Unit No: [id number] EXAMS: CPT CODE: [id number] PREG UT TRANSVAGINAL 44553 (Continued) [facility] NAME: AICHA BARNES Radiology Department PHYS: ANDREINAGermain VargasIra L DO [address] : 1990 AGE: 31 SEX: F [place], [place] [address] LOC: F.EARL PHONE #: [phone] EXAM DATE: 05/08/2021 STATUS: REG ER FAX #: [phone] RAD NO: Page 2 Signed Report Notes Date/Time Note Provider Source 2021-07-21 09:44:00 [id number] EQcY+UhAmg5mL2uwZ2GRwEV8AKw0z MNJgP54qsAExyQWXp8jrRUh2Vb71627-85-08G44:44:00 [facility]OB Postpart Progr NoteREPORT#:[id number] REPORT STATUS: SignedDATE:07/21/21 TIME: 943 PATIENT: AICHA BARNES UNIT #: [id number]#: [id number] ROOM/BED: ADOB: [birth year] AGE: 31 SEX: F ATTEND: Patricia Pink [facility] AUTHOR: Felicia Pinon DO R2 * ALL edits or amendments must be made on the electronic/computer document * Subjective SubjectiveStatus/Day: post operativePatient reports: Patient reports: Yes normal lochia, Yes pain management effective, Yes tolerating po well, Yesvoiding well, Yes voiding without pain, Yes tolerating ambulation, Yes flatus, No no complaints, No bowel movement, No nausea, No vomiting, No abdominal pain, No headache, No blurred vision Objective GeneralVS:Vital Signs: Date Time Temp Pulse Resp B/P B/P Pulse O2 O2 Flow FiO2 Mean Ox Delivery Rate 07/21 758 98.2 86 20 130/82 07/21 0028 98.6 87 18 95/62 07/20 2109 88 135/65 PATIENT WEIGHT: Weight (lb): 209Weight (oz): 7.03Weight (kg): 95.000 Physical ExamNeuro: Exam: alert, oriented f3Audidjo: soft (obese nl postop tenderness), no abnormal tenderness, no guardingIncision site: dry, no drainage, no inflammationUterus: firm, non-tenderFundus: below the umbilicus, non-tenderLower extremities: Edema: 3+ pitting Calf tenderness: negative Diagnosis, Assessment Plan Diagnosis, Assessment PlanFree text A P:POD 11 BALBINA 1-Normal PO course / repeat CD + enterorraphy2-Resolving preeclampsia, BPs wnl (95-130/62-81)3-Acute on chronic anemia (high MCV) pt s/p 1unit PRBC H/h stable at 8.1/25.44-Severe obesity Plan: stable for dc home, her ride was unavailable yesterday Dr pink aware Assessment: acute blood loss anemia, chronic blood loss anemia, resolving preeclampsia, stable BP's, however, still massive edema. Lasix persitent anemia,not responding to oral iron therapy, IV iron todya, s/p blood transfusion hgb stable at 8.1Plan: discharge today, iron therapy, home when Hgb 7 at 1244 at 0752 RPT #:[id number] OF REPORT PRProgress Zbcs4036-56-48P38:44:00F.NVYX77763011-4289VOPvkxc able for patient cygjXXCGKWUHTBKXUW2513-05-27Q88:45:17 [facility] 2021-07-20 12:16:00 [id number] DtdUtcFPO2/PZRzVD1M2mqAeJz3CY gA48LMqtw3ekGQ6Z+GP8C0trm8L4724-84-66S48:16:00 [facility])OB Disch PostpartumREPORT#:[id number] REPORT STATUS: SignedDATE:07/20/21 TIME: 1216 PATIENT: AICHA BARNES UNIT #: [id number]#: [id number] [address] AGE: 31 SEX: F ATTEND: Patricia Pink [facility] AUTHOR: Felicia Pinon DO R2 * ALL edits or amendments must be made on the electronic/computer document * Subjective SubjectiveStatus/day: post operative (day 10)Patient reports: Patient reports: Yes: normal lochia, pain management effective, tolerating po well, voiding well, voiding without pain, tolerating ambulation, flatus, bowel movement. No: complaints, nausea, vomiting, abdominal pain, headache, blurred vision. Objective GeneralVS:Vital Signs Date Temp Pulse Resp B/P B/P Mean Pulse Ox FiO2 07/19-07/20 97.9-99.8 83-106 18 96-123/63-79 74-86 95-96 Last Documented: Result Date Time B/P 07/20 0757 Temp 99.8 07/20 0757 Pulse 88 07/20 0757 Resp 18 07/20 0757 Pulse Ox 96 07/19 1637 B/P Mean 79 07/19 1428 PATIENT WEIGHT: Weight (lb): 209Weight (oz): 7.03Weight (kg): 95.000 Physical ExamLungs: unlabored breathingNeuro: Exam: alert, oriented x3, normal gaitAbdomen: post gravid, soft, no abnormal tendernessIncision site: dry, no drainage, no inflammationUterus: non-tenderFundus: below the umbilicus, non-tenderLochia: normalLower extremities: Edema: 3+ pitting (Also noted on upper extremitie) Calf tenderness: negativeAdd'l comments:swelling to right hand with bruising, full ROM, no tenderness Discharge Summary GeneralFree Text A P:POD 10 BALBINA 1-Normal PO course / repeat CD + enterorraphy2-Resolving preeclampsia, BPs wnl (101-123/71-79)3-Acute on chronic anemia (high MCV) pt s/p 1unit PRBC H/h stable at 8.1/25.44-Severe obesity Dr pink aware Assessment: acute blood loss anemia, chronic blood loss anemia, resolving preeclampsia, stable BP's, however, still massive edema. Lasix persitent anemia,not responding to oral iron therapy, IV iron todya, s/p blood transfusion hgb stable at 8.1Date of admission:Date of admission: 05/23/21 Hospital course: repeat admitProcedures: repeat CS deliveryDischarge condition: stableDischarge to: Home/Self CareDischarge diagnosis: chronic HTN w/pre-eclampPlan: discharge today, iron therapy, home when Hgb 7 Discharge InstructionsInstructions: routine instr sheet given, instr and warnings rev'd, specific instr as notedDiet: RegularActivity: As Tolerated, No [place] for 6 Wks, No Lifting >10lbs, No Strenuous ActivityAdditional discharge routines: Add. instructionsAdditional instructions:follow up 2 weeksContraception discussed: abstinence for 4-6 weeks, will discuss at PP visitDischarge meds:Stop taking the following medications:LABETALOL (TRANDATE) 100 MG TAB 100 MILLIGRAM ORAL TWICE DAILY. Continue taking these medications:PNV/FE FUM/FA ( MULTIVITAMIN) 1 TAB TAB 1 TABLET ORAL DAILY. Start taking the following new medications:FERROUS SULFATE (FEOSOL) 325 MG TAB 325 MILLIGRAM ORAL THREE TIMES DAILY WITH MEALS. Qty = 90 No Refills LABETALOL (TRANDATE) 200 MG TAB 400 MILLIGRAM ORAL TWICE DAILY. Qty = 60 No Refills IBUPROFEN (MOTRIN) 600 MG TAB 600 MILLIGRAM ORAL EVERY 6 HOURS NEEDED. as needed for PAIN SCALE 1-3 (USE 1ST) Qty = 20 No Refills traMADol (ULTRAM) 50 MG TAB 50 MILLIGRAM ORAL EVERY 6 HOURS NEEDED. as needed for ACUTE PAIN Qty = 20 No Refills Prescriptions: e-prescribe at 1248 at 0752 RPT #:[id number] OF REPORT OBObstetric yhaq7041-34-01V56:16:00F.OMQM49965639-6433QYKcncb able for patient zuqcWPBTWBQEEUTXTM6511-51-84X87:48:57 [facility] 2021-07-20 07:16:00 [id number] 1ewmE1ow4L/omlrNKlPcIe33d6IFp VUcQK/CdpY3d047GohLMOdljp837451-13-30Q15:16:00 [facility] ([facility])OB Postpart Progr NoteREPORT#:[id number] REPORT STATUS: SignedDATE:07/20/21 TIME: 0716 PATIENT: AICHA BARNES UNIT #: [id number]#: [id number] [address] [birth year] AGE: 31 SEX: F ATTEND: Patricia Pink [facility] AUTHOR: Felicia Pinon DO R2 * ALL edits or amendments must be made on the electronic/computer document * Subjective SubjectiveStatus/Day: post operative (day 10) Objective Nursing Documentation ReviewNursing Data:The data set between the solid lines has been imported from nursing documentation. Any exceptions have been noted below under Provider comments. Feeding preference: Post hemorrhage risk score: Low Risk for Hemorrhage. Provider comments on imported nursing data: [] Physical ExamNeuro: Exam: alert, oriented j9Weancor: soft (obese nl postop tenderness), no abnormal tenderness, no guardingIncision site: dry, no drainage, no inflammationUterus: firm, non-tenderFundus: below the umbilicus, non-tenderLower extremities: Edema: 3+ pitting Calf tenderness: negativeAdd'l comments:swelling to R hand with bruising s/p transfusion, full ROM, no tenderness, improving Diagnosis, Assessment Plan Diagnosis, Assessment PlanFree text A P:POD 10 BALBINA 1-Normal PO course / repeat CD + enterorraphy2-Resolving preeclampsia, BPs wnl (101-123/71-79)3-Acute on chronic anemia (high MCV) pt s/p 1unit PRBC H/h stable at 8.1/25.44-Severe obesity Dr pink aware Assessment: nml progress, resolving preeclampsia, stable BP's, however, still massive edema. Lasix persitent anemia, not responding to oral iron therapy, IV iron todya, re-evalaute in am. Home when Hgb 7Plan: discharge today, iron therapy, home when Hgb 7 at 1238 at 0752 RPT #:[id number] OF REPORT PRProgress Rdqz8048-88-50Z72:16:00F.QANP03964030-0783ADZbxoq able for patient yzuhTDZZTEBNZGDEVO6768-65-78O69:38:25 [facility] 2021-07-19 12:16:00 [id number] DCH8wEkDah0zQ2g7gKgBve9KviyhD AyYNhcq8PTewheyfjLgfl6MMBRu0918-82-08H07:16:00 [facility])OB Postpart Progr NoteREPORT#:[id number] REPORT STATUS: SignedDATE:07/19/21 TIME: 1216 PATIENT: AICHA BARNES UNIT #: [id number]#: [id number] ROOM/BED: 20[address]-ADOB: [birth year] AGE: 31 SEX: F ATTEND: Patricia Pink AUTHOR: Nikko Martin MD * ALL edits or amendments must be made on the electronic/computer document * Subjective SubjectiveStatus/Day: post operative (day 2)Patient reports: Patient reports: Yes normal lochia, Yes pain management effective, Yes tolerating po well, Yesvoiding well, Yes voiding without pain, Yes tolerating ambulation, Yes flatus, Yes bowel movementComments:feels tired and occ sob when walking Objective GeneralVS:Vital Signs: Date Time Temp Pulse Resp B/P B/P Pulse O2 O2 Flow FiO2 Mean Ox Delivery Rate 07/19 830 98.2 89 18 116/77 PATIENT WEIGHT: Weight (lb): 278Weight (oz): Weight (kg): 126.099 Physical ExamCardiac: normal sinus rhythmLungs: clear to auscultationAbdomen: soft (obese nl postop tenderness)Incision site: dry (dressing)Lower extremities: Edema: 3+ pitting Calf tenderness: negative ResultFindings/Data:Laboratory Tests: 07/19 524 Hematology WBC (6.5 - 12.3 K/mm3) 6.9 RBC (3.51 - 4.69 M/mm3) 1.91 L Hgb (10.1 - 13.8 g/dL) 6.9 *L Hct (32.5 - 41.8 %) 22.4 L MCV (84.6 - 96.6 fL) 117.3 H MCH (27.3 - 33.9 pg) 36.1 H MCHC (32.0 - 34.2 gm/dL) 30.8 L RDW (12.2 - 16.3 %) 15.7 Plt Count (134 - 363 K/mm3) 194 MPV (9.2 - 12.7 fL) 9.4 Neut % (Auto) (57.9 - 77.3 %) 69.5 Lymph % (Auto) (14.5 - 29.7 %) 18.0 [place] % (Auto) (3.6 - 10.2 %) 7.9 Eos % (Auto) (0.0 - 3.0 %) 3.5 H Baso % (Auto) (0.1 - 0.9 %) 0.4 Neut # (Auto) (K/mm3) 4.8 Lymph # (Auto) (K/mm3) 1.2 [place] # (Auto) (K/mm3) 0.5 Eos # (Auto) (K/mm3) 0.24 Baso # (Auto) (K/mm3) 0.0 Diagnosis, Assessment Plan Diagnosis, Assessment PlanFree text A P:POD 9 BALBINA 1-Normal PO course / repeat CD + enterorraphy2-Resolving preeclampsia, 3-Acute on chronic anemia (high MCV) hgb stable at 6.9. we discussed r/b/c of transfusion. pt agrees. PLAN- 1 u pRBC and kateryna h/h4-Severe obesity Dr pink aware at 1218 RPT #:[id number] OF REPORT PRProgress Pxmg8931-99-26B75:16:00F.[id number] able for patient nntuHDDGLCFRBMVUCR0443-71-45W95:19:12 [facility] 2021-07-18 20:30:00 [id number] MVRgjcBicU162uzvFZZbdtRX7RLR4 78DR/BuTYTDAv89+lD2meDdKHpU3687-17-06N13:30:00 [facility] ([facility])OB Postpart Progr NoteREPORT#:[id number] REPORT STATUS: SignedDATE:07/18/21 TIME: 2029 PATIENT: AICHA BARNES UNIT #: [id number]#: [id number] [address] [birth year] AGE: 31 SEX: F ATTEND: Patricia Pink [facility] AUTHOR: Patricia Pink MD * ALL edits or amendments must be made on the electronic/computer document * Subjective SubjectiveStatus/day: post , post operative, day # 8 severe preeclampsia, PTL, cervical insufficiency,post opertive anemia H/h improvin post IV iron BP's stabilizngPatient reports: Patient reports: Yes: normal lochia, pain management effective, tolerating po well, voiding well, voiding without pain, tolerating ambulation, flatus. No: complaints. Comments:patient had refused transfusion. Finally imporvbed H/H Objective GeneralVS:Vital Signs: Date Time Temp Pulse Resp B/P B/P Pulse O2 O2 Flow FiO2 Mean Ox Delivery Rate 07/18 944 98.7 86 17 124/83 97 07/18 010 76.0 07/18 100 98.9 68 18 97/66 Vital Signs Date Temp Pulse Resp B/P B/P Mean Pulse Ox FiO2 07/18 98.7-98.9 68-86 17-18 97-124/66-83 76.0 97 Last Documented: Result Date Time Pulse Ox 97 07/18 944 B/P 124/83 07/18 944 Temp 98.7 07/18 944 Pulse 86 07/18 944 Resp 17 07/18 944 B/P Mean 76.0 07/18 100 PATIENT WEIGHT: Weight (lb): 278Weight (oz): Weight (kg): 126.099 Physical ExamCardiac: normal rhythmLungs: clear to auscultation, no rales, unlabored breathingNeuro: Exam: alert, oriented x3, normal gaitAbdomen: soft, no abnormal tendernessIncision site: xi intact, dry, no inflammationUterus: firm, involution appropriate, non-tenderFundus: at the umbilicusLochia: normalLower extremities: Edema: 2+ pitting, 3+ pitting (Also noted on upper extremitie) Calf tenderness: negative ResultFindings/data:Laboratory Tests: 07/18 817 Hematology Hgb (10.1 - 13.8 g/dL) 6.9 *L Hct (32.5 - 41.8 %) 22.5 L Diagnosis, Assessment Plan Diagnosis, Assessment PlanFree text A P:A/P1-Normal PO course / repeat CD + enterorraphy2-Resolving preeclampsia, 3-Acute on chronic anemia (high MCV)4-Severe obesity Stable. Tranfusion proposed. Patient anxious about it; will think about it. Plan: 1-routine care2-Continue folic acid Assessment: nml progress, resolving preeclampsia, stable BP's, however, still massive edema. Lasix persitent anemia, not responding to oral iron therapy, IV iron todya, re-evalaute in am. Home when Hgb 7Plan: routine care, iron therapy, home when Hgb 7 at 203 [facility] #:[id number] OF REPORT PRProgress Atqw7499-59-82A01:30:00F.SHRF20386430-0741ZNEwrce able for patient hcvhEYPUNZAILINYQR0590-02-59A13:33:09 [facility] 2021-07-17 21:11:00 [id number] t7IaxCAxVY48pcEgpnDzyaBc/ni06 B+HQSq6pKH6gMFP3RGWWpzFJfnN5509-23-08H03:11:00 [facility] ([facility])OB Postpart Progr NoteREPORT#:[id number] REPORT STATUS: SignedDATE:07/17/21 TIME: 2110 PATIENT: AICHA BARNES UNIT #: [id number]#: [id number] ROOM/BED: [facility]-ADOB: [birth year] AGE: 31 SEX: F ATTEND: Patricia Pink AUTHOR: Ric Rivera MD * ALL edits or amendments must be made on the electronic/computer document * Subjective SubjectiveStatus/day: post , post operative, day # 6 severe preeclampsia, PTL, cervical insufficiency,post opertive anemisPatient reports: Patient reports: Yes: normal lochia, pain management effective, tolerating po well, voiding well, voiding without pain, tolerating ambulation, flatus, bowel movement. No: complaints, nausea, vomiting, excessive bleeding, abdominal pain. Objective Nursing Documentation ReviewNursing data:Laboratory Tests: 07/16 0900 Chemistry Sodium (135 - 145 mEq/L) 142 Potassium (3.5 - 5.0 mEq/L) 4.9 Chloride (100 - 115 mEq/L) 109 Carbon Dioxide (22 - 31 mEq/L) 25 Anion Gap (10 - 20) 12.70 BUN (7 - 18 mg/dL) 17 Creatinine (0.5 - 1.0 mg/dL) 1.0 Glomerular Filtr Rate (>60 ml/min) 64 Glucose (65 - 110 mg/dL) 118 H Calcium (8.4 - 10.2 mg/dL) 8.1 L Hematology WBC (6.5 - 12.3 K/mm3) 6.7 RBC (3.51 - 4.69 M/mm3) 1.83 L Hgb (10.1 - 13.8 g/dL) 6.5 *L Hct (32.5 - 41.8 %) 21.3 L MCV (84.6 - 96.6 fL) 116.4 H MCH (27.3 - 33.9 pg) 35.5 H MCHC (32.0 - 34.2 gm/dL) 30.5 L RDW (12.2 - 16.3 %) 15.8 Plt Count (134 - 363 K/mm3) 171 MPV (9.2 - 12.7 fL) 9.5 Neut % (Auto) (57.9 - 77.3 %) 76.0 Lymph % (Auto) (14.5 - 29.7 %) 13.6 L [place] % (Auto) (3.6 - 10.2 %) 6.7 Eos % (Auto) (0.0 - 3.0 %) 2.8 Baso % (Auto) (0.1 - 0.9 %) 0.3 Neut # (Auto) (K/mm3) 5.1 Lymph # (Auto) (K/mm3) 0.9 [place] # (Auto) (K/mm3) 0.5 Eos # (Auto) (K/mm3) 0.19 Baso # (Auto) (K/mm3) 0.0 The data set between the solid lines has been imported from nursing documentation. Any exceptions have been noted below under Provider comments. Feeding preference: Post hemorrhage risk score: Low Risk for Hemorrhage. Provider comments on imported nursing data: [] GeneralVS:Vital Signs Date Temp Pulse Resp B/P B/P Mean Pulse Ox FiO2 07/17 98.3-98.9 84-89 18 113-127/72-76 Last Documented: Result Date Time B/P 07/17 165 Temp 98.9 07/17 1655 Pulse 85 07/17 1655 Resp 18 07/17 1655 Pulse Ox 97 07/15 1733 B/P Mean 86.0 07/13 1540 PATIENT WEIGHT: Weight (lb): 278Weight (oz): Weight (kg): 126.099 Medications:Active Meds + DC'd Last 24 HrsFolic Acid (FOLIC ACID 1 MG TAB) 1 MG DAILY PO Ferrous Sulfate (FERROUS SULFATE 325 MG TAB) 325 MG TID MEALS PO Enoxaparin Sodium (LOVENOX SOD 40MG INJ) 40 MG DAILY SUBQ Acetaminophen (ACETAMINOPHEN 325 MG TAB) 650 MG Q6H PRN PRN PO Ibuprofen (IBUPROFEN 600 MG TAB) 600 MG Q6H PRN PRN PO Docusate Sodium (DOCUSATE SODIUM 100 MG CAP) 200 MG BEDTIME PO Oxycodone HCl (OXYIR 5MG TAB) 5 MG Q4H PRN PRN PO Oxycodone HCl (Oxycodone HCl 10 MG IR) 10 MG Q4H PRN PRN PO Multivi/Iron Carb/Fe Sulf/FA/Prenat ( VITAMINS) 1 TAB DAILY PO Ondansetron HCl (ZOFRAN 2 MG/ML 4 MG SYR) 4 MG Q6H PRN PRN IV Ondansetron HCl (ZOFRAN 4 MG UD TAB) 4 MG Q6H PRN PRN PO Al Hydrox/Mg Hydrox/Simethicone (MYLANTA 30 ML SUSP) 30 ML ASDIR PRN PO Calcium Gluconate (CA GLUCONATE 1 GM/10 ML VIAL) 1,000 MG BOLUS ASDIR PRN IV Diphtheria/Pertussis/Tetanus Vacc (ADACEL VACCINE) 0.5 ML ASDIR IM Docusate Sodium (DOCUSATE SODIUM 100 MG CAP) 100 MG BID PRN PRN PO Hydrocortisone (HYDROCORTISONE 1% TOP CREAM 30 GM) 1 APPL ASDIR PRN TOPICAL Hydrocortisone/Pramoxine (ANALPRAM HC 2.5% CRM SINGLES) 1 GM ASDIR PRN RECTAL (CKD) Hydroxyzine HCl (hydrOXYzine HCL 25 MG TAB) 25 MG Q6H PRN PRN PO Lactated Ringer's (LACTATED RINGERS) 2,000 ML ASDIR PRN IV Magnesium Hydroxide (MILK OF MAGNESIA 30 ML UD) 30 ML BID PRN PRN PO Measles/Mumps/Rubella Vaccine Live (M-M-R II VACCINE W DILUENT) 1 VIAL BEFORE DISCHG PRN SUBQ Methylergonovine Maleate (METHERGINE 0.2 MG/ML 1 ML AMP) 0.2 MG ASDIR PRN IM Nalbuphine HCl (NALBUPHINE HCL 10 MG/ML 1 ML AMP) 2 MG Q4H PRN PRN IV Nalbuphine HCl (NALBUPHINE HCL 10 MG/ML 1 ML AMP) 2 MG Q4H PRN PRN IM Nalbuphine HCl (NALBUPHINE HCL 10 MG/ML 1 ML AMP) 4 MG Q4H PRN PRN IV Nalbuphine HCl (NALBUPHINE HCL 10 MG/ML 1 ML AMP) 4 MG Q4H PRN PRN IM Naloxone HCl (NALOXONE HCL 0.4 MG/ML 1 ML VIAL) 0.4 MG ANES ASDIR PRN IV Neomycin/Polymyxin/Bacitracin (TRIPLE ANTIBIOTIC 0.94 GM) 1 APPLIC BID PRN TOPICAL Omeprazole/Sodium Bicarbonate (ZEGERID 20 MG CAPSULE) 2 CAP ASDIR PRN PO Polyethylene Glycol (POLYETHYLENE GLYCOL PKT) 17 GM DAILY PRN PRN PO Promethazine HCl (PROMETHAZINE HCL) 25 MG Q6H PRN PRN PO Simethicone (SIMETHICONE 80 MG TAB) 80 MG PC HS PRN PRN PO Tranexamic Acid (Tranexamic Acid) 1,000 MG ASDIR PRN IV Sodium Chloride (SODIUM CHLORIDE 0.9% 100 ML ADD-[place]) 100 MLUndefined Medication (MAGNESIUM SULFATE 20GM/SWFI 500ML) 500 ML ASDIR IV (CKD) Labetalol HCl (LABETALOL HCL 200 MG) 400 MG BID PO Nifedipine (PROCARDIA XL 30 MG) 30 MG BID PO Physical ExamCardiac: normal rhythmLungs: clear to auscultation, no rales, unlabored breathingNeuro: Exam: alert, oriented x3, normal gaitAbdomen: soft, no abnormal tendernessIncision site: xi intact, dry, no inflammationUterus: firm, involution appropriate, non-tenderFundus: at the umbilicusLochia: normalLower extremities: Edema: 2+ pitting, 3+ pitting (Also noted on upper extremitie) Calf tenderness: negative ResultFindings/data:Laboratory Tests: 07/16 0900 Chemistry Sodium (135 - 145 mEq/L) 142 Potassium (3.5 - 5.0 mEq/L) 4.9 Chloride (100 - 115 mEq/L) 109 Carbon Dioxide (22 - 31 mEq/L) 25 Anion Gap (10 - 20) 12.70 BUN (7 - 18 mg/dL) 17 Creatinine (0.5 - 1.0 mg/dL) 1.0 Glomerular Filtr Rate (>60 ml/min) 64 Glucose (65 - 110 mg/dL) 118 H Calcium (8.4 - 10.2 mg/dL) 8.1 L Hematology WBC (6.5 - 12.3 K/mm3) 6.7 RBC (3.51 - 4.69 M/mm3) 1.83 L Hgb (10.1 - 13.8 g/dL) 6.5 *L Hct (32.5 - 41.8 %) 21.3 L MCV (84.6 - 96.6 fL) 116.4 H MCH (27.3 - 33.9 pg) 35.5 H MCHC (32.0 - 34.2 gm/dL) 30.5 L RDW (12.2 - 16.3 %) 15.8 Plt Count (134 - 363 K/mm3) 171 MPV (9.2 - 12.7 fL) 9.5 Neut % (Auto) (57.9 - 77.3 %) 76.0 Lymph % (Auto) (14.5 - 29.7 %) 13.6 L [place] % (Auto) (3.6 - 10.2 %) 6.7 Eos % (Auto) (0.0 - 3.0 %) 2.8 Baso % (Auto) (0.1 - 0.9 %) 0.3 Neut # (Auto) (K/mm3) 5.1 Lymph # (Auto) (K/mm3) 0.9 [place] # (Auto) (K/mm3) 0.5 Eos # (Auto) (K/mm3) 0.19 Baso # (Auto) (K/mm3) 0.0 Diagnosis, Assessment Plan Diagnosis, Assessment PlanFree text A P:A/P1-Normal PO course / repeat CD + enterorraphy2-Resolving preeclampsia, 3-Acute on chronic anemia (high MCV)4-Severe obesity Stable. Tranfusion proposed. Patient anxious about it; will think about it. Plan: 1-routine care2-Continue folic acid Assessment: nml progress, resolving preeclampsia, stable BP's, however, still massive edema. Lasix persitent anemia, not responding to oral iron therapy, IV iron todya, re-evalaute in am. Home when Hgb 7Plan: routine care, iron therapy, home when Hgb 7 at 2122 RPT #:[id number] OF REPORT PRProgress Bmbb6885-11-08W43:11:00F.EMNG95653613-2607EYLwdmy able for patient wtxpMYXLKXSIANOCDQ7743-15-41I34:23:00 [facility] 2021-07-16 14:38:00 [id number] oHEipD4wG0v9xhhrWB9s9ZZ1CX/Rv Yjk6OsaSNTXCpK5Idk1UEgc7k/z3787-85-84J64:38:00 [facility]OB Postpart Progr NoteREPORT#:[id number] REPORT STATUS: SignedDATE:07/16/21 TIME: 8 PATIENT: AICHA BARNES UNIT #: [id number]#: [id number] ROOM/BED: [facility]-ADOB: [birth year] AGE: 31 SEX: F ATTEND: Patricia Pink [facility] AUTHOR: Patricia Pink MD * ALL edits or amendments must be made on the electronic/computer document * Subjective SubjectiveStatus/day: post , post operative, day # 6 severe preeclampsia, PTL, cervical insufficiency,post opertive anemisPatient reports: Patient reports: Yes: complaints (of swelling), normal lochia, pain management effective, tolerating po well, voiding well, voiding without pain, tolerating ambulation, flatus, bowel movement. Objective GeneralVS:Vital Signs: Date Time Temp Pulse Resp B/P B/P Pulse O2 O2 Flow FiO2 Mean Ox Delivery Rate 07/16 0800 98.7 82 18 124/77 07/15 1733 98.5 94 15 109/69 97 Vital Signs Date Temp Pulse Resp B/P B/P Mean Pulse Ox FiO2 07/15-07/16 98.5-98.7 82-94 15-18 109-124/-77 97 Last Documented: Result Date Time B/P 77 07/16 0800 Temp 98.7 07/16 0800 Pulse 82 07/16 0800 Resp 18 07/16 0800 Pulse Ox 97 07/15 1733 B/P Mean 86.0 07/13 1540 PATIENT WEIGHT: Weight (lb): 278Weight (oz): Weight (kg): 126.099 Medications:Active Meds + DC'd Last 24 HrsIron Sucrose (VENOFER) 100 MG ONCE ONE IV Sodium Chloride (SODIUM CHLORIDE 0.9% 100 ML ADD-[place]) 100 MLPotassium Chloride (Potassium CHL 20MEQ/15ML LIQ) 20 MEQ ONCE ONE PO (DC) Furosemide (FUROSEMIDE 20 MG TAB) 40 MG ONCE ONE PO (DC) Iron Sucrose (VENOFER) 100 MG ONCE ONE IV (DC) Sodium Chloride (SODIUM CHLORIDE 0.9% 100 ML ADD-[place]) 100 MLPotassium Chloride (Potassium CHL 20MEQ/15ML LIQ) 20 MEQ ONCE ONE PO (DC) Furosemide (FUROSEMIDE 20 MG TAB) 40 MG NOW ONE PO (DC) Potassium Chloride (K-DUR 10 MEQ SA TAB) 20 MEQ ONCE ONE PO (DC) Folic Acid (FOLIC ACID 1 MG TAB) 1 MG DAILY PO Ferrous Sulfate (FERROUS SULFATE 325 MG TAB) 325 MG TID MEALS PO Enoxaparin Sodium (LOVENOX SOD 40MG INJ) 40 MG DAILY SUBQ Acetaminophen (ACETAMINOPHEN 325 MG TAB) 650 MG Q6H PRN PRN PO Ibuprofen (IBUPROFEN 600 MG TAB) 600 MG Q6H PRN PRN PO Docusate Sodium (DOCUSATE SODIUM 100 MG CAP) 200 MG BEDTIME PO Oxycodone HCl (OXYIR 5MG TAB) 5 MG Q4H PRN PRN PO Oxycodone HCl (Oxycodone HCl 10 MG IR) 10 MG Q4H PRN PRN PO Multivi/Iron Carb/Fe Sulf/FA/Prenat ( VITAMINS) 1 TAB DAILY PO Ondansetron HCl (ZOFRAN 2 MG/ML 4 MG SYR) 4 MG Q6H PRN PRN IV Ondansetron HCl (ZOFRAN 4 MG UD TAB) 4 MG Q6H PRN PRN PO Al Hydrox/Mg Hydrox/Simethicone (MYLANTA 30 ML SUSP) 30 ML ASDIR PRN PO Calcium Gluconate (CA GLUCONATE 1 GM/10 ML VIAL) 1,000 MG BOLUS ASDIR PRN IV Diphtheria/Pertussis/Tetanus Vacc (ADACEL VACCINE) 0.5 ML ASDIR IM Docusate Sodium (DOCUSATE SODIUM 100 MG CAP) 100 MG BID PRN PRN PO Hydrocortisone (HYDROCORTISONE 1% TOP CREAM 30 GM) 1 APPL ASDIR PRN TOPICAL Hydrocortisone/Pramoxine (ANALPRAM HC 2.5% CRM SINGLES) 1 GM ASDIR PRN RECTAL (CKD) Hydroxyzine HCl (hydrOXYzine HCL 25 MG TAB) 25 MG Q6H PRN PRN PO Lactated Ringer's (LACTATED RINGERS) 2,000 ML ASDIR PRN IV Magnesium Hydroxide (MILK OF MAGNESIA 30 ML UD) 30 ML BID PRN PRN PO Measles/Mumps/Rubella Vaccine Live (M-M-R II VACCINE W DILUENT) 1 VIAL BEFORE DISCHG PRN SUBQ Methylergonovine Maleate (METHERGINE 0.2 MG/ML 1 ML AMP) 0.2 MG ASDIR PRN IM Nalbuphine HCl (NALBUPHINE HCL 10 MG/ML 1 ML AMP) 2 MG Q4H PRN PRN IV Nalbuphine HCl (NALBUPHINE HCL 10 MG/ML 1 ML AMP) 2 MG Q4H PRN PRN IM Nalbuphine HCl (NALBUPHINE HCL 10 MG/ML 1 ML AMP) 4 MG Q4H PRN PRN IV Nalbuphine HCl (NALBUPHINE HCL 10 MG/ML 1 ML AMP) 4 MG Q4H PRN PRN IM Naloxone HCl (NALOXONE HCL 0.4 MG/ML 1 ML VIAL) 0.4 MG ANES ASDIR PRN IV Neomycin/Polymyxin/Bacitracin (TRIPLE ANTIBIOTIC 0.94 GM) 1 APPLIC BID PRN TOPICAL Omeprazole/Sodium Bicarbonate (ZEGERID 20 MG CAPSULE) 2 CAP ASDIR PRN PO Polyethylene Glycol (POLYETHYLENE GLYCOL PKT) 17 GM DAILY PRN PRN PO Promethazine HCl (PROMETHAZINE HCL) 25 MG Q6H PRN PRN PO Simethicone (SIMETHICONE 80 MG TAB) 80 MG PC HS PRN PRN PO Tranexamic Acid (Tranexamic Acid) 1,000 MG ASDIR PRN IV Sodium Chloride (SODIUM CHLORIDE 0.9% 100 ML ADD-[place]) 100 MLUndefined Medication (MAGNESIUM SULFATE 20GM/SWFI 500ML) 500 ML ASDIR IV (CKD) Labetalol HCl (LABETALOL HCL 200 MG) 400 MG BID PO Nifedipine (PROCARDIA XL 30 MG) 30 MG BID PO Physical ExamCardiac: normal rhythmLungs: clear to auscultation, no rales, unlabored breathingNeuro: Exam: alert, oriented x3, normal gaitAbdomen: soft, no abnormal tendernessIncision site: xi intact, dry, no inflammationUterus: firm, involution appropriate, non-tenderFundus: at the umbilicusLochia: normalLower extremities: Edema: 2+ pitting, 3+ pitting (Also noted on upper extremitie) Calf tenderness: negative ResultFindings/data:Laboratory Tests: 07/16 0900 Chemistry Sodium (135 - 145 mEq/L) 142 Potassium (3.5 - 5.0 mEq/L) 4.9 Chloride (100 - 115 mEq/L) 109 Carbon Dioxide (22 - 31 mEq/L) 25 Anion Gap (10 - 20) 12.70 BUN (7 - 18 mg/dL) 17 Creatinine (0.5 - 1.0 mg/dL) 1.0 Glomerular Filtr Rate (>60 ml/min) 64 Glucose (65 - 110 mg/dL) 118 H Calcium (8.4 - 10.2 mg/dL) 8.1 L Hematology WBC (6.5 - 12.3 K/mm3) 6.7 RBC (3.51 - 4.69 M/mm3) 1.83 L Hgb (10.1 - 13.8 g/dL) 6.5 *L Hct (32.5 - 41.8 %) 21.3 L MCV (84.6 - 96.6 fL) 116.4 H MCH (27.3 - 33.9 pg) 35.5 H MCHC (32.0 - 34.2 gm/dL) 30.5 L RDW (12.2 - 16.3 %) 15.8 Plt Count (134 - 363 K/mm3) 171 MPV (9.2 - 12.7 fL) 9.5 Neut % (Auto) (57.9 - 77.3 %) 76.0 Lymph % (Auto) (14.5 - 29.7 %) 13.6 L [place] % (Auto) (3.6 - 10.2 %) 6.7 Eos % (Auto) (0.0 - 3.0 %) 2.8 Baso % (Auto) (0.1 - 0.9 %) 0.3 Neut # (Auto) (K/mm3) 5.1 Lymph # (Auto) (K/mm3) 0.9 [place] # (Auto) (K/mm3) 0.5 Eos # (Auto) (K/mm3) 0.19 Baso # (Auto) (K/mm3) 0.0 Diagnosis, Assessment Plan Diagnosis, Assessment PlanAssessment: nml progress, resolving preeclampsia, stable BP's, however, still massive edema. Lasix, persitent anemia, not responding to oral iron therapy, IV iron todya, re-evalaute in am. Home when Hgb 7Plan: routine care, iron therapy, home when Hgb 7 at 1442 RPT #:[id number] OF REPORT PRProgress [id number]:38:00F.[id number] able for patient mmwwFPIZBBRQBUHTAX1331-40-04Q01:42:21 [facility] 2021-07-15 18:46:00 [id number] Nc+nn0sls4+yjj3rL8Hdyn4y2eoON SqsaD89uRkQ8WJxjsJuNPWJOVpd9269-80-16G96:46:00 [facility] ([facility])OB Postpart Progr NoteREPORT#:[id number] REPORT STATUS: SignedDATE:07/15/21 TIME: 1845 PATIENT: AICHA BARNES UNIT #: [id number]#: [id number] ROOM/BED: 2065-ADOB: [birth year] AGE: 31 SEX: F ATTEND: Patricia Pink AUTHOR: Patricia Pink MD * ALL edits or amendments must be made on the electronic/computer document * Subjective SubjectiveStatus/day: post , post operative, day # 5 severe preeclampsia, PTL, cervical insufficiencyPatient reports: Patient reports: Yes: normal lochia, pain management effective, tolerating po well, voiding well, voiding without pain, tolerating ambulation, flatus. No: complaints. Objective GeneralVS:Vital Signs Date Temp Pulse Resp B/P B/P Mean Pulse Ox FiO2 07/14-07/15 98.4 82-88 17-18 117-154/66-78 97 Last Documented: Result Date Time Pulse Ox 97 07/15 956 B/P 154/77 07/15 956 Temp 98.4 07/15 09 Pulse 82 07/15 0956 Resp 17 07/15 09 B/P Mean 86.0 07/13 1540 PATIENT WEIGHT: Weight (lb): 278Weight (oz): Weight (kg): 126.099 Physical ExamLungs: clear to auscultation, no rales, unlabored breathingNeuro: Exam: alert, oriented x3, normal gaitAbdomen: soft, no abnormal tendernessIncision site: xi intact, dry, no inflammationUterus: firm, involution appropriate, non-tenderFundus: at the umbilicusLochia: normalLower extremities: Edema: 2+ pitting, 3+ pitting (Also noted on upper extremitie) Calf tenderness: negative ResultFindings/data:Laboratory Tests 07/13 0538 Chemistry Sodium (135 - 145 mEq/L) 140 Potassium (3.5 - 5.0 mEq/L) 5.0 Chloride (100 - 115 mEq/L) 111 Carbon Dioxide (22 - 31 mEq/L) 21 L Anion Gap (10 - 20) 13.10 BUN (7 - 18 mg/dL) 26 H Creatinine (0.5 - 1.0 mg/dL) 1.0 Glomerular Filtr Rate (>60 ml/min) 64 Glucose (65 - 110 mg/dL) 93 Calcium (8.4 - 10.2 mg/dL) 7.4 L Total Bilirubin (0.2 - 1.0 mg/dL) 0.1 L AST (15 - 37 units/L) 32 ALT (12 - 78 units/L) 21 Total Alk Phosphatase (46 - 116 units/L) 82 Total Protein (6.3 - 8.2 gm/dL) 5.0 L Albumin (3.4 - 4.8 gm/dL) 1.8 L Laboratory Tests 07/14 07/13 0805 0538 Hematology WBC (6.5 - 12.3 K/mm3) 6.9 7.7 RBC (3.51 - 4.69 M/mm3) 1.83 L 1.79 L Hgb (10.1 - 13.8 g/dL) 6.6 *L 6.5 *L Hct (32.5 - 41.8 %) 21.6 L 21.4 L MCV (84.6 - 96.6 fL) 118.0 H 119.6 H MCH (27.3 - 33.9 pg) 36.1 H 36.3 H MCHC (32.0 - 34.2 gm/dL) 30.6 L 30.4 L RDW (12.2 - 16.3 %) 16.0 16.2 Plt Count (134 - 363 K/mm3) 136 113 L MPV (9.2 - 12.7 fL) 9.9 10.7 Neut % (Auto) (57.9 - 77.3 %) 78.7 H 74.9 Lymph % (Auto) (14.5 - 29.7 %) 11.5 L 15.0 [place] % (Auto) (3.6 - 10.2 %) 5.3 6.7 Eos % (Auto) (0.0 - 3.0 %) 3.3 H 2.5 Baso % (Auto) (0.1 - 0.9 %) 0.3 0.3 Neut # (Auto) (K/mm3) 5.5 5.8 Lymph # (Auto) (K/mm3) 0.8 1.2 [place] # (Auto) (K/mm3) 0.4 0.5 Eos # (Auto) (K/mm3) 0.23 0.19 Baso # (Auto) (K/mm3) 0.0 0.0 Diagnosis, Assessment Plan Diagnosis, Assessment PlanAssessment: nml progress, acute blood loss anemia, resolving preeclampsiaPlan: routine care, iron therapy, home when Hgb 7 at 1848 RPT #:[id number] OF REPORT PRProgress Wkyu1262-36-56O95:46:00F.[id number] able for patient ltayCBFAGJWGALSXVT3981-43-63X54:48:53 [facility] 2021-07-14 17:39:00 [id number] +gTV79TrBKLDD9qwfyAlGhtrLbDSF nWgI78DocCZXchu26kA5m4mbZIF7287-93-44R36:39:00 [facility] ([facility])OB Postpart Progr NoteREPORT#:[id number] REPORT STATUS: SignedDATE:07/14/21 TIME: 1739 PATIENT: AICHA BARNES UNIT #: [id number]#: [id number] ROOM[facility]BED: [facility]-ADOB: [birth year] AGE: 31 SEX: F ATTEND: Patricia Pink MDADM AUTHOR: Patricia Pink MD * ALL edits or amendments must be made on the electronic/computer document * Subjective SubjectiveStatus/day: post , post operative, day # 4 severe preeclampsia, PTL, cervical insufficiencyPatient reports: Patient reports: Yes: normal lochia, pain management effective, tolerating po well, voiding well, voiding without pain, flatus. No: complaints. Comments:H/H decreased, no orthosasis Objective GeneralVS:Vital Signs Date Temp Pulse Resp B/P B/P Mean Pulse Ox FiO2 07/13-07/14 98.2-98.6 76-84 16-18 108-121/70-76 98-100 Last Documented: Result Date Time Pulse Ox 100 07/14 1145 B/P 108/70 07/14 1145 Temp 98.6 07/14 1145 Pulse 84 07/14 1145 Resp 16 07/14 1145 B/P Mean 86.0 07/13 1540 PATIENT WEIGHT: Weight (lb): 278Weight (oz): Weight (kg): 126.099 Physical ExamLungs: clear to auscultation, no rales, unlabored breathingNeuro: Exam: alert, oriented x3, normal gaitAbdomen: soft, no abnormal tendernessIncision site: xi intact, dry, no inflammationUterus: firm, involution appropriate, non-tenderFundus: at the umbilicusLochia: normalLower extremities: Edema: 2+ pitting, 3+ pitting (Also noted on upper extremitie) Calf tenderness: negative Blood LossBlood loss at delivery:Blood loss at delivery: Cause of the bleeding: Management that was provided: QBL at delivery: EBL at delivery: Diagnosis, Assessment Plan Diagnosis, Assessment PlanAssessment: nml progress, acute blood loss anemia, resolving vie0zxifkzggdPifs: routine care, iron therapy, home tomorrow if stable at 1741 [facility] #:[id number] OF REPORT PRProgress Mzrz2472-28-98J55:39:00F.LGMP57100059-4402LHHkfci able for patient mbrtHGJEUUGYNNYNRP5452-35-80R44:41:39 [facility] 2021-07-13 20:18:00 [id number]/ ioJtdPM0ISro7BkboXUSCh5+/3u7U CYV1Pand6vgH3VGYSYpZbqd4dcS9193-89-71N61:18:00 [facility]OB Postpart Progr NoteREPORT#:[id number] REPORT STATUS: SignedDATE:07/13/21 TIME: 2017 PATIENT: AICHA BARNES UNIT #: [id number]#: [id number] [address] [birth year] AGE: 31 SEX: F ATTEND: Patricia Pink AUTHOR: Patricia Pink MD * ALL edits or amendments must be made on the electronic/computer document * Subjective SubjectiveStatus/day: post , post operative, day # 3, severe preeclampsia, PTL, cervical insufficiencyPatient reports: Patient reports: Yes: normal lochia, pain management effective, tolerating po well, voiding well, voiding without pain, tolerating ambulation, flatus. No: complaints. Objective GeneralVS:Vital Signs Date Temp Pulse Resp B/P B/P Mean Pulse Ox FiO2 07/13 97.9-98.4 77-86 16-18 107-145/61-72 76.0-96.0 97-98 Last Documented: Result Date Time B/P Mean 86.0 07/13 1540 Pulse Ox 97 07/13 1540 B/P 122/68 07/13 1540 Temp 97.9 07/13 1540 Pulse 82 07/13 1540 Resp 16 07/13 1540 PATIENT WEIGHT: Weight (lb): 278Weight (oz): Weight (kg): 126.099 Medications:Active Meds + DC'd Last 24 HrsEnoxaparin Sodium (LOVENOX SOD 40MG INJ) 40 MG DAILY SUBQ Acetaminophen (ACETAMINOPHEN 325 MG TAB) 650 MG Q6H PRN PRN PO Ibuprofen (IBUPROFEN 600 MG TAB) 600 MG Q6H PRN PRN PO Docusate Sodium (DOCUSATE SODIUM 100 MG CAP) 200 MG BEDTIME PO Oxycodone HCl (OXYIR 5MG TAB) 5 MG Q4H PRN PRN PO Oxycodone HCl (Oxycodone HCl 10 MG IR) 10 MG Q4H PRN PRN PO Multivi/Iron Carb/Fe Sulf/FA/Prenat ( VITAMINS) 1 TAB DAILY PO Ondansetron HCl (ZOFRAN 2 MG/ML 4 MG SYR) 4 MG Q6H PRN PRN IV Ondansetron HCl (ZOFRAN 4 MG UD TAB) 4 MG Q6H PRN PRN PO Ibuprofen (IBUPROFEN 600 MG TAB) 600 MG Q6H PO (DC) Al Hydrox/Mg Hydrox/Simethicone (MYLANTA 30 ML SUSP) 30 ML ASDIR PRN PO Calcium Gluconate (CA GLUCONATE 1 GM/10 ML VIAL) 1,000 MG BOLUS ASDIR PRN IV Diphtheria/Pertussis/Tetanus Vacc (ADACEL VACCINE) 0.5 ML ASDIR IM Docusate Sodium (DOCUSATE SODIUM 100 MG CAP) 100 MG BID PRN PRN PO Hydrocortisone (HYDROCORTISONE 1% TOP CREAM 30 GM) 1 APPL ASDIR PRN TOPICAL Hydrocortisone/Pramoxine (ANALPRAM HC 2.5% CRM SINGLES) 1 GM ASDIR PRN RECTAL (CKD) Hydroxyzine HCl (hydrOXYzine HCL 25 MG TAB) 25 MG Q6H PRN PRN PO Lactated Ringer's (LACTATED RINGERS) 2,000 ML ASDIR PRN IV Magnesium Hydroxide (MILK OF MAGNESIA 30 ML UD) 30 ML BID PRN PRN PO Measles/Mumps/Rubella Vaccine Live (M-M-R II VACCINE W DILUENT) 1 VIAL BEFORE DISCHG PRN SUBQ Methylergonovine Maleate (METHERGINE 0.2 MG/ML 1 ML AMP) 0.2 MG ASDIR PRN IM Nalbuphine HCl (NALBUPHINE HCL 10 MG/ML 1 ML AMP) 2 MG Q4H PRN PRN IV Nalbuphine HCl (NALBUPHINE HCL 10 MG/ML 1 ML AMP) 2 MG Q4H PRN PRN IM Nalbuphine HCl (NALBUPHINE HCL 10 MG/ML 1 ML AMP) 4 MG Q4H PRN PRN IV Nalbuphine HCl (NALBUPHINE HCL 10 MG/ML 1 ML AMP) 4 MG Q4H PRN PRN IM Naloxone HCl (NALOXONE HCL 0.4 MG/ML 1 ML VIAL) 0.4 MG ANES ASDIR PRN IV Neomycin/Polymyxin/Bacitracin (TRIPLE ANTIBIOTIC 0.94 GM) 1 APPLIC BID PRN TOPICAL Omeprazole/Sodium Bicarbonate (ZEGERID 20 MG CAPSULE) 2 CAP ASDIR PRN PO Polyethylene Glycol (POLYETHYLENE GLYCOL PKT) 17 GM DAILY PRN PRN PO Promethazine HCl (PROMETHAZINE HCL) 25 MG Q6H PRN PRN PO Simethicone (SIMETHICONE 80 MG TAB) 80 MG PC HS PRN PRN PO Tranexamic Acid (Tranexamic Acid) 1,000 MG ASDIR PRN IV Sodium Chloride (SODIUM CHLORIDE 0.9% 100 ML ADD-[place]) 100 MLUndefined Medication (MAGNESIUM SULFATE 20GM/SWFI 500ML) 500 ML ASDIR IV (CKD) Labetalol HCl (LABETALOL HCL 200 MG) 400 MG BID PO Nifedipine (PROCARDIA XL 30 MG) 30 MG BID PO Physical ExamLungs: clear to auscultation, no rales, unlabored breathingNeuro: Exam: alert, oriented x3, normal gaitAbdomen: soft, no abnormal tendernessIncision site: xi intact, dry, no inflammationUterus: firm, involution appropriate, non-tenderFundus: at the umbilicusLochia: normalLower extremities: Edema: 2+ pitting, 3+ pitting (Also noted on upper extremitie) Calf tenderness: negative ResultFindings/data:Laboratory Tests: 07/13 0538 Chemistry Sodium (135 - 145 mEq/L) 140 Potassium (3.5 - 5.0 mEq/L) 5.0 Chloride (100 - 115 mEq/L) 111 Carbon Dioxide (22 - 31 mEq/L) 21 L Anion Gap (10 - 20) 13.10 BUN (7 - 18 mg/dL) 26 H Creatinine (0.5 - 1.0 mg/dL) 1.0 Glomerular Filtr Rate (>60 ml/min) 64 Glucose (65 - 110 mg/dL) 93 Calcium (8.4 - 10.2 mg/dL) 7.4 L Total Bilirubin (0.2 - 1.0 mg/dL) 0.1 L AST (15 - 37 units/L) 32 ALT (12 - 78 units/L) 21 Total Alk Phosphatase (46 - 116 units/L) 82 Total Protein (6.3 - 8.2 gm/dL) 5.0 L Albumin (3.4 - 4.8 gm/dL) 1.8 L Hematology WBC (6.5 - 12.3 K/mm3) 7.7 RBC (3.51 - 4.69 M/mm3) 1.79 L Hgb (10.1 - 13.8 g/dL) 6.5 *L Hct (32.5 - 41.8 %) 21.4 L MCV (84.6 - 96.6 fL) 119.6 H MCH (27.3 - 33.9 pg) 36.3 H MCHC (32.0 - 34.2 gm/dL) 30.4 L RDW (12.2 - 16.3 %) 16.2 Plt Count (134 - 363 K/mm3) 113 L MPV (9.2 - 12.7 fL) 10.7 Neut % (Auto) (57.9 - 77.3 %) 74.9 Lymph % (Auto) (14.5 - 29.7 %) 15.0 [place] % (Auto) (3.6 - 10.2 %) 6.7 Eos % (Auto) (0.0 - 3.0 %) 2.5 Baso % (Auto) (0.1 - 0.9 %) 0.3 Neut # (Auto) (K/mm3) 5.8 Lymph # (Auto) (K/mm3) 1.2 [place] # (Auto) (K/mm3) 0.5 Eos # (Auto) (K/mm3) 0.19 Baso # (Auto) (K/mm3) 0.0 Diagnosis, Assessment Plan Diagnosis, Assessment PlanFree text A P:POD 3 (-, gei repeat LTCS at 33 3/7 weeks, Chronic hypertension, Previous c/sx 3, Recurrent heart rate decelerations, [place]) bp 120-130/60-70, on procardia 30xl bid, labet 400 bid) LAB POD 1 h/h/ 8.8/27.8, plat 116, alt/ast 35/21, creat 1.1 9- POD 2 h/h 7.0/22.8, plat 107, wbc 8.7, ast/alt 25/20, creat 1.2, na 134 07/13 H/H 6.5/ 21.4,platelet normaltolerating anemia wellwill repeeat H/H in amadvance diet. at 0425 RPT #:[id number] OF REPORT PRProgress Btib2158-74-01N63:18:00F.[id number] able for patient owczHIIDXRHEIVHQOJ3519-10-00O22:26:05 [facility] 2021-07-12 10:15:00 [id number] FxoSzJmSK8z8dN5n+PMLLbW59eidt X3w6hjkAsGZs6pkpX7LUmGTpZWU6427-39-12W36:15:00 [facility] ([facility])OB Postpart Progr NoteREPORT#:[id number] REPORT STATUS: SignedDATE:07/12/21 TIME: 1015 PATIENT: AICHA BARNES UNIT #: [id number]#: [id number] [address] [birth year] AGE: 31 SEX: F ATTEND: Patricia Pink [facility] AUTHOR: Nikko Martin MD * ALL edits or amendments must be made on the electronic/computer document * Subjective SubjectiveStatus/Day: post operative (day 2)Patient reports: Patient reports: Yes normal lochia, Yes tolerating po well, Yes voiding well, Yes voiding without pain, Yes tolerating ambulation, No pain management effective, No flatus, No bowel movement Objective GeneralVS:Vital Signs: Date Time Temp Pulse Resp B/P B/P Pulse O2 O2 Flow FiO2 Mean Ox Delivery Rate 07/12 0400 90.0 07/12 0400 98.3 74 20 124/73 100 07/12 0012 89.0 07/12 0012 97.9 69 20 131/69 98 07/11 2300 90.0 07/11 2300 71 18 128/69 97 07/11 2200 93.0 07/11 2200 76 18 134/69 100 07/11 2048 105.0 07/11 2048 84 18 149/77 99 07/11 2000 111.0 07/11 2000 98.1 80 18 161/78 97 07/11 1900 107.0 07/11 1900 84 18 154/77 99 07/11 1800 101.0 07/11 1800 84 20 142/74 97 07/11 1700 99.0 07/11 1700 75 18 132/77 98 07/11 1605 102.0 07/11 1605 73 18 133/81 99 07/11 1500 91.0 07/11 1500 82 18 134/63 87 07/11 1400 98.0 07/11 1400 74 18 129/72 98 07/11 1300 95.0 07/11 1300 77 20 129/72 99 07/11 1159 103.0 07/11 1159 98.3 85 20 134/81 97 07/11 1100 88.0 07/11 1100 73 20 121/69 97 PATIENT WEIGHT: Weight (lb): 278Weight (oz): Weight (kg): 126.099 Physical ExamCardiac: normal sinus rhythmLungs: clear to auscultationAbdomen: soft (obese nl postop tenderness)Incision site: dry (dressing)Lower extremities: Edema: 3+ pitting Calf tenderness: negative Diagnosis, Assessment Plan Diagnosis, Assessment PlanFree text A P:POD 2 (07-10, gei repeat LTCS at 33 3/7 weeks, Chronic hypertension, Previous c/sx 3, Recurrent heart rate decelerations, [place]) bp 120-130/60-70, on procardia 30xl bid, labet 400 bid) LAB POD 1 h/h/ 8.8/27.8, plat 116, alt/ast 35/21, creat 1.1 - POD 2 h/h 7.0/22.8, plat 107, wbc 8.7, ast/alt 25/20, creat 1.2, na 134 PLAN- veg broth, incr pain meds dosing, ambulate, lovenox 40 q d, repeat am lab (cbc, cmp), start iron po w return of bowel fn Pt seen and discussed w dr gann at 1019 RPT #:[id number] OF REPORT PRProgress Zjrn0400-64-92A64:15:00F.[id number] able for patient dfmtEVBJDWOIBXMXOB8836-14-83N84:20:07 [facility] 2021-07-11 08:19:00 [id number] NJs3uY7IrV8JnTCTdtHUC3T/TKN7c aS/dpffni3OBc2pQ4o3CQcVysUk7790-55-85Q03:19:00 [facility]OB Postpart Progr NoteREPORT#:[id number] REPORT STATUS: SignedDATE:07/11/21 TIME: 818 PATIENT: AICHA BARNES UNIT #: [id number]#: [id number] ROOM[facility]BED: [facility]-ADOB: [birth year] AGE: 31 SEX: F ATTEND: Patricia Pikn MDA AUTHOR: Nikko Martin MD * ALL edits or amendments must be made on the electronic/computer document * See AddendumSubjective SubjectiveStatus/Day: post operative (day 1)Patient reports: Patient reports: Yes no complaints, Yes normal lochia, Yes pain management effective, Yes tolerating po well, No voiding well (coffey in), No tolerating ambulation, No flatus, No bowel movement Objective GeneralVS:Vital Signs: Date Time Temp Pulse Resp B/P B/P Pulse O2 O2 Flow FiO2 Mean Ox Delivery Rate 07/11 0800 106.0 07/11 0800 73 22 138/84 98 07/11 0616 66 132/82 95 07/11 0128 110.0 07/11 0128 98.1 66 20 146/85 96 07/11 0030 114.0 07/11 0030 58 20 143/94 98 07/11 0015 108.0 07/11 0015 58 21 136/88 96 07/11 0000 113.0 07/11 0000 64 34 147/90 96 07/10 2345 114.0 07/10 2345 60 25 149/90 96 07/10 2330 104.0 07/10 2330 63 19 139/79 95 07/10 2315 100.0 07/10 2315 60 19 140/72 98 07/10 2300 85.0 07/10 2300 70 36 119/63 98 07/10 2245 87.0 07/10 2245 97.5 72 18 115/67 100 07/10 2229 91.0 09/26 2229 64 16 118/74 98 09/26 1930 85 99 07/10 1925 75 99 07/10 1920 74 99 07/10 1916 123.0 07/10 1916 78 16 166/101 07/10 1915 78 97 07/10 1910 115.0 07/10 1910 85 144/97 98 07/10 1858 108.0 07/10 1858 80 149/76 07/10 1857 82 98 07/10 1852 82 99 07/10 1849 18 07/10 1849 131.0 07/10 1849 81 174/99 07/10 1847 83 100 07/10 160 98.0 07/10 160 98.2 75 136/74 PATIENT WEIGHT: Weight (lb): 278Weight (oz): Weight (kg): 126.099 Physical ExamCardiac: normal sinus rhythmLungs: clear to auscultationAbdomen: soft (obese nl postop tenderness)Incision site: dry (dressing)Lower extremities: Edema: 3+ pitting Calf tenderness: negative ResultFindings/Data:Laboratory Tests: 07/11 07/10 07/10 07/10 0534 2116 2115 1640Blood Gas Capillary pH (7.35 - 7.45) 7.134 *L 7.039 *L Capillary pCO2 (mmHg) 55.8 71.5 Capillary pO2 (mmHg) 17.4 10.0 Capillary HCO3 (meq/L) 18.3 18.9 Capillary Base Excess -11.2 -13.0 Capillary O2 Sat Calc (%) 16.2 Patient On Oxygen CBLV CBLA FiO2 (%) 21.0 21.0Chemistry Creatinine (0.5 - 1.0 mg/dL) 1.1 H 1.0 AST (15 - 37 units/L) 35 ALT (12 - 78 units/L) 21 Lactate Dehydrogenase (81 - 234 434 Hunits/L)Hematology WBC (6.5 - 12.3 K/mm3) 13.3 H RBC (3.51 - 4.69 M/mm3) 2.45 L Hgb (10.1 - 13.8 g/dL) 8.8 L Hct (32.5 - 41.8 %) 27.8 L MCV (84.6 - 96.6 fL) 113.5 H MCH (27.3 - 33.9 pg) 35.9 H MCHC (32.0 - 34.2 gm/dL) 31.7 L RDW (12.2 - 16.3 %) 15.8 Plt Count (134 - 363 K/mm3) 116 L MPV (9.2 - 12.7 fL) 10.5 Neut % (Auto) (57.9 - 77.3 %) 90.4 H Lymph % (Auto) (14.5 - 29.7 %) 5.5 L [place] % (Auto) (3.6 - 10.2 %) 3.5 L Eos % (Auto) (0.0 - 3.0 %) 0.0 Baso % (Auto) (0.1 - 0.9 %) 0.1 Neut # (Auto) (K/mm3) 12.0 Lymph # (Auto) (K/mm3) 0.7 [place] # (Auto) (K/mm3) 0.5 Eos # (Auto) (K/mm3) 0 Baso # (Auto) (K/mm3) 0.0Urines Ur Random Creatinine (mg/dL) 68.6 U Random Total Protein (mg/dL) 224.4 Urine Total Volume (ML) 2000 Creatinine Clearance (70 - 120 ml/min) 94 Ur Total Protein 24 Hr (20 - 150 4488 *Hmg/24HR) Diagnosis, Assessment Plan Diagnosis, Assessment PlanFree text A P:POD 1 (-, gei repeat LTCS at 33 3/7 weeks, Chronic hypertension, Previous c/sx 3, Recurrent heart rate decelerations, BOY) bp 130-140/80-90, on procardia 30xl bid, labet 400 bid) LAB POD 1 h/h/ 8.8/27.8, plat 116, alt/ast 35/21, creat 1.1, still on mgso4 PLAN- ck mg level now, repeat am lab (cbc, cmp), cpm Pt seen and discussed w dr gann at 1337 Addendum 1: 07/11/21 1348 by Nikko Martin MD mg 5.6 at 1348 RPT #:[id number] OF REPORT PRProgress Cafh4769-57-16B58:19:00F.[id number] able for patient aeuuCRYNGOAMHJHWGW1928-95-51S34:38:00 [facility] 2021-07-10 23:16:00 [id number] ajjGCzmJDfetMIwQkL1mDJZ80M5HV tiOx8/yvMGNgeZwyrDVWiIoH6Mt9061-09-31R24:16:00 [facility] ([facility])Clinical NoteREPORT#:[id number] REPORT STATUS: SignedDATE:07/10/21 TIME: 2315 PATIENT: AICHA BARNES UNIT #: [id number]#: [id number] [address] [birth year] AGE: 31 SEX: F ATTEND: Patricia Pink MDA AUTHOR: Yara Venegas MD * ALL edits or amendments must be made on the electronic/computer document * Clinical NoteNote:L D/Dr Rivera for Dr Pink/L Cindy Hospitalist (MARTIN)COVID neg I was present for the full procedure, (repeat #4, enterolysis 2o severe small bowel adhesions to ant ut) as the painter assistant surgeon. My presence was due to lack of a resident physician or surgical nurse practitioner and the necessity of an painter assistant for surgical exposure and assistance in performing the procedures to meet the standard of care and for the safety of the patient. Please see the full op note by 1o surgeon, Dr Rivera for full details./dsd at 0119 RPT #:[id number] OF REPORT CLClinical sohm0670-11-81M60:16:00F.[id number] able for patient fakeWFQWJEZQNMBZRI9166-98-16G49:19:20 [facility] 2021-07-10 18:29:00 [id number] xYGFxVGWQRaIMlZN7hVne+GvsvsyG N+mqhchxNDxKxSmylVP3mzK4YxL1854-99-33K28:29:00 [facility] ([facility])OB Antepartum Prog NoteREPORT#:[id number] REPORT STATUS: SignedDATE:07/10/21 TIME: 1828 PATIENT: AICHA BARNES UNIT #: [id number]#: [id number] [address] [birth year] AGE: 31 SEX: F ATTEND: Patricia Pink [facility] AUTHOR: Ric Rivera MD * ALL edits or amendments must be made on the electronic/computer document * Subjective SubjectivePatient reports: Patient reports: Yes normal movement, Yes new complaints (Generalized edema), No no complaints, No abdominal pain, No vaginal bleeding, No leaking fluid, No contractions, No headache, No blurred vision, No scotomata, No fever, No chills,No shortness of breathNursing reports: Nursing reports: Yes new complaints (Thrombocytopenia) Objective Nursing Documentation ReviewNursing data:The data set between the solid lines has been imported from nursing documentation. Any exceptions have been noted below under Provider comments. ROM date: ROM time: Labor onset date: Labor onset time: Provider comments on imported nursing data: [] VS:Last Documented: Result Date Time B/P Mean 98.0 07/10 1607 B/P 136/74 07/10 1607 Temp 98.2 07/10 1607 Pulse 75 07/10 1607 Pulse Ox 99 07/10 0621 Resp 20 07/09 2018 Vital Signs Date Temp Pulse Resp B/P B/P Mean Pulse Ox FiO2 07/09-07/10 97.9-98.2 75-89 20 109-176/58-96 74.0-127.0 99 PATIENT WEIGHT: Weight (lb): 278Weight (oz): Weight (kg): 126.099 Medications:Active Meds + DC'd Last 24 HrsBetamethasone Acet/Betameth SodPhos (CELESTONE SOLUSPAN 12MG/2 ML SYR) 12 MG ONCE ONE IM (DC) Undefined Medication (MAGNESIUM SULFATE 20GM/SWFI 500ML) 500 ML ASDIR IV (CKD) Undefined Medication (MAGNESIUM SULFATE 4GM/SWFI 100ML) 100 ML ONCE ONE IV Labetalol HCl (LABETALOL HCL 200 MG) 400 MG BID PO Nifedipine (PROCARDIA XL 30 MG) 30 MG BID PO Diphenhydramine HCl (diphenhydrAMINE HCL 25 MG CAP) 25 MG BEDTIME PRN PRN PO Zolpidem Tartrate (AMBIEN 5 MG UDTAB) 5 MG BEDTIME PRN PRN PO Folic Acid (FOLIC ACID 1 MG TAB) 1 MG DAILY PO Albuterol Sulfate (PROVENTIL 2 MG UD TAB) 2 MG Q6HR PO Progesterone (ENDOMETRIN 100MG) 200 MG BEDTIME VAGINAL (CKD) Ferrous Sulfate (FERROUS SULFATE 325 MG TAB) 325 MG BID MEALS PO Multivi/Iron Carb/Fe Sulf/FA/Prenat ( VITAMINS) 1 TAB DAILY PO Acetaminophen (ACETAMINOPHEN 325 MG TAB) 650 MG Q4H PRN PRN PO Al Hydrox/Mg Hydrox/Simethicone (MYLANTA 30 ML SUSP) 30 ML Q4H PRN PRN PO Lactated Ringer's (LACTATED RINGERS) 1,000 ML ASDIR IV Magnesium Hydroxide (MILK OF MAGNESIA 30 ML UD) 30 ML Q6H PRN PRN PO Ondansetron HCl (ZOFRAN 4 MG UD TAB) 4 MG Q6H PRN PRN PO Polyethylene Glycol (POLYETHYLENE GLYCOL PKT) 17 GM DAILY PRN PRN PO Docusate Sodium (DOCUSATE SODIUM 100 MG CAP) 100 MG 0900,2100 PO Membranes: IntactUterine activity: Monitor: toco Frequency (description): noneProcedures: non stress testHEENT: normocephalic w/o injuryCardiac: regular rate and rhythm, no clinically sig murmurLungs: clear to auscultation, no rales, unlabored breathingNeuro: Exam: alert, oriented x3, normal gaitAbdomen: gravid, softLower extremities: Edema: 2+ pitting, 3+ pitting (Also noted on upper extremitie) Calf tenderness: negativeBaby A: Baby A baseline: 145 bpm Baby A variability: moderate 6-25 bpm Baby A accelerations: 15 X 15 Baby A decelerations: variable Baby A FHR category: category 2 Diagnosis, Assessment Plan Diagnosis, Assessment PlanFree Text A P:A/P31 year old at 33 3/7 weeks GA vertex, occult cord prolapse 1. AGA fetus, category 2 tracing, at risk for pretem delivery: celestone, magnesium sulfate, consult2. Chronic hypertension 3. Cervical foreshortening, threatened delivery bed rest4. Previous c/s x 3; for repeat c/s5. H/O Trichomonas infection; Rx'd6. Anemia Rx7. contractions: ventolin 2 mg q 6 hrs, progesterone, sq terbutaline8. Severe obesity / Difficult IV access 9. Recurrent heart rate decelerations Assessment: IUP 33 2/7 WEEKS, CHTN, LABILE, PRIOR CD X 3, ptc Plan: 1-IV access2-Celestone 12 mg IM (rescue dose)3-Begin MgSO4: 4 g load + 2 g/h4-Prepare for CSAssessment: IUP 33 2/7 WEEKS, CHTN, LABILE, PRIOR CD X 3, ptcPlan: continue current managmnt at 1843 RPT #:[id number] OF REPORT PRProgress Aodf9192-03-93I72:29:00F.LRPG09056053-9970NFWyaeu able for patient zfulNSNWQGPEKVKKTR7553-52-81P29:49:46 [facility] 2021-07-09 11:09:00 [id number] w9SBFoIwlh1LKsZcOjM6i3gHhGTxq NlejF5w20oMVHAE5W/z6Kzbj7na8213-67-77Q86:09:00 [facility])OB Antepartum Prog NoteREPORT#:[id number] REPORT STATUS: SignedDATE:07/09/21 TIME: 1109 PATIENT: AICHA BARNES UNIT #: [id number]#: [id number] [address] [birth year] AGE: 31 SEX: F ATTEND: Patricia Pink [facility] AUTHOR: Shoaib Gann MD * ALL edits or amendments must be made on the electronic/computer document * Subjective SubjectivePatient reports: Patient reports: Yes normal movement, No abdominal pain, No vaginal bleeding, No leakingfluid, No contractions ObjectiveMembranes: IntactUterine activity: Monitor: toco Frequency (description): noneProcedures: non stress testHEENT: normocephalic w/o injuryCardiac: regular rate and rhythm, no clinically sig murmurLungs: clear to auscultation, no rales, unlabored breathingNeuro: Exam: alert, oriented x3, normal gaitAbdomen: gravid, softLower extremities: Edema: 2+ pitting Calf tenderness: negativeBaby A: Baby A baseline: 145 bpm Baby A variability: moderate 6-25 bpm Baby A accelerations: 15 X 15 Baby A decelerations: variable Baby A FHR category: category 2 Diagnosis, Assessment Plan Diagnosis, Assessment PlanFree Text A P:31 year old at 33 2/7 weeks GA vertex, occi;t cord prolapse 1.AGA fetus, category 2 tracing, at risk for pretem delivery: celestone, magnesium sulfate, consult2. Chronic hypertensin, labile BP's, , monitor BP, no sign of severe preeclampsia, repeat laboratory today3. cervical foreshortening, threatened delivery bed rest4. previous c/s x 3, repeat c/s5. trichomonas infection by PCR, not fully treated on 05/02 in [facility], Flagyl, treatment completed6. anemia Rx7. contractions: ventolin 2 mg q 6 hrs, progesterone, sq terbutaline8. edema check protein:cr ratio continue current care, fetus at risk for cord prolapse, distress, hospital managment for now Assessment: IUP 33 2/7 WEEKS, CHTN, LABILE, PRIOR CD X 3, ptcPlan: continue current managmnt at 1110 RPT #:[id number] OF REPORT PRProgress Fuqf6330-64-44S35:09:00F.CVLI25859053-4763SMCdlzm able for patient xldtRLMHPGNNMPWIZW3691-09-54V15:11:06 [facility] 2021-07-08 08:25:00 [id number] 9qFMsuiX7cB0VZdJN9Y46HdK9yt8c g2PvNqKEKRohf5+8IYfGUdQSJE63341-78-95A25:25:00 [facility])OB Antepartum Prog NoteREPORT#:[id number] REPORT STATUS: SignedDATE:07/08/21 TIME: 824 PATIENT: AICHA BARNES UNIT #: [id number]#: [id number] [address] [birth year] AGE: 31 SEX: F ATTEND: Patricia Pink [facility] AUTHOR: Patricia Pink MD * ALL edits or amendments must be made on the electronic/computer document * Subjective SubjectiveComments:had again contractions and deceleratons, otherwise reassuring Objective Nursing Documentation ReviewNursing data: VS:Last Documented: Result Date Time B/P Mean 94.0 07/08 606 B/P 134/65 07/08 06 Pulse 76 07/08 0606 Resp 18 07/08 0606 Pulse Ox 100 07/08 0003 Temp 98.2 07/08 0003 Vital Signs Date Temp Pulse Resp B/P B/P Mean Pulse Ox FiO2 07/07-07/08 98.2 74-104 18 134-151/65-85 94.0-105.0 98-100 PATIENT WEIGHT: Weight (lb): 227Weight (oz): Weight (kg): 102.965 Membranes: IntactUterine activity: Monitor: toco Frequency (description): noneProcedures: non stress testHEENT: normocephalic w/o injuryCardiac: regular rate and rhythm, no clinically sig murmurLungs: clear to auscultation, no rales, unlabored breathingNeuro: Exam: alert, oriented x3, normal gaitAbdomen: gravid, softLower extremities: Calf tenderness: negativeBaby A: Baby A baseline: 145 bpm Baby A variability: moderate 6-25 bpm Baby A accelerations: 15 X 15 Baby A decelerations: variable Baby A FHR category: category 2 Diagnosis, Assessment Plan Diagnosis, Assessment PlanFree Text A P:31 year old at 33 1/7 weeks GA vertex, occi;t cord prolapse 1.AGA fetus, category 2 tracing, at risk for pretem delivery: celestone, magnesium sulfate, consult2. Chronic hypertensin, labile BP's, , monitor BP, no sign of severe preeclampsia, repeat laboratory today3. cervical foreshortening, threatened delivery bed rest4. previous c/s x 3, repeat c/s5. trichomonas infection by PCR, not fully treated on 05/02 in [facility], treatment completed6. anemia Rx7. contractions: ventolin 2 mg q 6 hrs, progesterone, sq terbutaline continue current care, fetus at risk for cord prolapse, distress, hospital managment for now at 0845 RPT #:[id number] OF REPORT PRProgress Smwp8837-95-02D94:25:00F.TWBB27938323-3028TKRxmfp able for patient yspuKMTSDXXOENIBBX6297-70-95E35:26:24 [facility] 2021-07-07 07:44:00 [id number] AouFtL78cSqjD4T6Ydq/Q2xkol1lC JtJDHL7lWkpY70hfk4lZ2ub74m48851-17-45T18:44:00 [facility])MFM Consultation NoteREPORT#:[id number] REPORT STATUS: SignedDATE:07/07/21 TIME: 07 PATIENT: AICHA BARNES UNIT #: [id number]#: [id number] [address] [birth year] AGE: 31 SEX: F ATTEND: Patricia Pink [facility] AUTHOR: Patricia Pink MD * ALL edits or amendments must be made on the electronic/computer document * History of Present Illness HPIReason for consult:ultrasound History Past HistoryAllergies:Coded Allergies:No Known Allergies (05/08/21) Objective ResultsFindings/Data:ultrasound indication 32 6/7 weeks GAcervical foreshortening, funnelingPTLchronic hypertensionprevious c/s x 3 findings: mckeon vertexoccult cord prolapseendocervical funneling to 1.6 cmpolyhydramios resolved EFREN 17.6 , S/D 3.61EFW 2350 gms, 65 %, slightly decreased growth from 74 % for GABPP 88 at 0817 RPT #:[id number] OF REPORT ZVTljomrcqzkjs8968-15-80X92:44:00F.XCVD78964714-2 085AVAvailable for patient ajsxNHLCCEGWPSCYWI9645-67-94S45:18:00 [facility] 2021-07-07 07:42:00 [id number] Rc7DPnfq7pWd0f7AivusyykxGLbap 6ssU1u7zP+ao0j2oEGuA7gh0IiL4421-14-26L85:42:00 [facility] ([facility])OB Antepartum Prog NoteREPORT#:[id number] REPORT STATUS: SignedDATE:07/07/21 TIME: 0742 PATIENT: AICHA BARNES UNIT #: [id number]#: [id number] [address] [birth year] AGE: 31 SEX: F ATTEND: Patricia Pink AUTHOR: Patricia Pink MD * ALL edits or amendments must be made on the electronic/computer document * Subjective SubjectiveComments:no major decelerations, fetus active. contractions controlled ObjectiveVS:Vital Signs: Date Time Temp Pulse Resp B/P B/P Pulse O2 O2 Flow FiO2 Mean Ox Delivery Rate 07/07 06 109.0 07/07 0627 98.1 76 20 152/88 07/06 2358 102.0 07/06 2358 70 139/75 07/06 1602 90.0 07/06 1602 96 127/72 99 07/06 0757 98.7 18 07/06 0757 100.0 07/06 0757 93 143/70 99 Last Documented: Result Date Time B/P Mean 109.0 07/07 0627 B/P 152/88 07/07 0627 Temp 98.1 07/07 0627 Pulse 76 07/07 0627 Resp 20 07/07 0627 Pulse Ox 99 07/06 1602 Vital SignsDate Temp Pulse Resp B/P B/P Mean Pulse Ox LxI297/22-07/07 98.1-98.7 70-96 18-20 127-152/70-88 90.0-109.0 99 PATIENT WEIGHT: Weight (lb): 227Weight (oz): Weight (kg): 102.965 Membranes: IntactUterine activity: Monitor: toco Frequency (description): noneProcedures: non stress testHEENT: normocephalic w/o injuryCardiac: regular rate and rhythm, no clinically sig murmurLungs: clear to auscultation, no rales, unlabored breathingNeuro: Exam: alert, oriented x3, normal gaitAbdomen: gravid, softLower extremities: Calf tenderness: negativeBaby A: Baby A baseline: 145 bpm Baby A variability: moderate 6-25 bpm Baby A accelerations: 15 X 15 Baby A decelerations: variable Baby A FHR category: category 2 Diagnosis, Assessment Plan Diagnosis, Assessment PlanFree Text A P:31 year old at 32 6/7 weeks GA vertex, occi;t cord prolapse 1.AGA fetus, category 2 tracing, at risk for pretem delivery: celestone, magnesium sulfate, consult2. Chronic hypertensin, labile BP's, , monitor BP, no sign of severe preeclampsia, repeat laboratory today3. cervical foreshortening, threatened delivery bed rest4. previous c/s x 3, repeat c/s5. trichomonas infection by PCR, not fully treated on 05/02 in [facility], treatment completed6. anemia Rx7. contractions: ventolin 2 mg q 6 hrs, progesterone, sq terbutaline continue current care, fetus at risk for cord prolapse, distress, hospital managment for now at 0744 RPT #:[id number] OF REPORT PRProgress Cept3620-91-69E33:42:00F.FVZO02327994-9121VNDcbhf able for patient dczeGVEUBHRCQITFMM6201-44-92P25:44:50 [facility] 2021-07-06 20:47:00 [id number] bDkpUgE2S87DuB8DXotXTM386k2ZF qFOJ6OlXSXJzPGxuBlee5cSroAu9402-27-86B26:47:00 [facility])OB Antepartum Prog NoteREPORT#:[id number] REPORT STATUS: SignedDATE:07/06/21 TIME: 2046 PATIENT: AICHA BARNES UNIT #: [id number]#: [id number] ROOM/BED: [facility]-ADOB: [birth year] AGE: 31 SEX: F ATTEND: Patricia Pink AUTHOR: Patricia Pink MD * ALL edits or amendments must be made on the electronic/computer document * Subjective SubjectiveComments:no complaints, conteraction controoled , no major decelerations ObjectiveVS:Last Documented: Result Date Time B/P Mean 90.0 07/06 1602 Pulse Ox 99 07/06 1602 B/P 127/72 07/06 1602 Pulse 96 07/06 1602 Temp 98.7 07/06 0757 Resp 18 07/06 0757 Vital Signs Date Temp Pulse Resp B/P B/P Mean Pulse Ox FiO2 07/05-07/06 98.7 76-96 18 127-145/70-82 90.0-108.0 99-100 PATIENT WEIGHT: Weight (lb): 227Weight (oz): Weight (kg): 102.965 Membranes: IntactUterine activity: Monitor: toco Frequency (description): noneProcedures: non stress testHEENT: normocephalic w/o injuryCardiac: regular rate and rhythm, no clinically sig murmurLungs: clear to auscultation, no rales, unlabored breathingNeuro: Exam: alert, oriented x3, normal gaitAbdomen: gravid, softLower extremities: Calf tenderness: negativeBaby A: Baby A baseline: 145 bpm Baby A variability: moderate 6-25 bpm Baby A accelerations: 15 X 15 Baby A decelerations: variable Baby A FHR category: category 2 Diagnosis, Assessment Plan Diagnosis, Assessment PlanFree Text A P:31 year old at 32 5/7 weeks GA transverse lie, funic presentation 1.AGA fetus, category 2 tracing, at risk for pretem delivery: celestone, magnesium sulfate, consult2. Chronic hypertensin, labile BP's, , monitor BP, no sign of severe preeclampsia3. cervical foreshortening, threatened delivery bed rest4. previous c/s x 3, repeat c/s5. trichomonas infection by PCR, not fully treated on 05/02 in [facility], Ap, treatment completed6. anemia Rx7. contractions: ventolin 2 mg q 6 hrs, progesterone, sq terbutaline continue current care, fetus at risk for cord prolapse, hospital managment fornow at 9697 RPT #:[id number] OF REPORT PRProgress Ynnc6305-12-80M91:47:00F.HNKA12465570-6058JBXqtum able for patient icrzANVTMMNLZGZIGL0941-69-38P65:48:44 [facility] 2021-07-05 18:53:00 [id number]/52M +19G+C77ZjVE/p2Tsf8KgCTBdUhfm 22x+J5v4pDKl2/M4ikrRRTroiC99974-69-98H70:53:00 [facility])OB Antepartum Prog NoteREPORT#:[id number] REPORT STATUS: SignedDATE:07/05/21 TIME: 1852 PATIENT: AICHA BARNES UNIT #: [id number]#: [id number] [address] [birth year] AGE: 31 SEX: F ATTEND: Patricia Pink MDA AUTHOR: Patricia Pink MD * ALL edits or amendments must be made on the electronic/computer document * Subjective SubjectiveComments:had contractions last night, with decelrations, recovered ObjectiveVS:Last Documented: Result Date Time B/P Mean 87.0 07/05 1619 Pulse Ox 99 07/05 1619 B/P 135/60 07/05 1619 Temp 98.4 07/05 1619 Pulse 80 07/05 1619 Resp 18 07/05 1619 Vital Signs Date Temp Pulse Resp B/P B/P Mean Pulse Ox FiO2 07/04-07/05 98.1-98.4 76-93 18 123-152/56-92 80.0-113.0 99-100 PATIENT WEIGHT: Weight (lb): 227Weight (oz): Weight (kg): 102.965 Membranes: IntactUterine activity: Monitor: toco Frequency (description): noneProcedures: non stress testHEENT: normocephalic w/o injuryCardiac: regular rate and rhythm, no clinically sig murmurLungs: clear to auscultation, no rales, unlabored breathingNeuro: Exam: alert, oriented x3, normal gaitAbdomen: gravid, softLower extremities: Calf tenderness: negativeBaby A: Baby A baseline: 145 bpm Baby A variability: moderate 6-25 bpm Baby A accelerations: 15 X 15 Baby A decelerations: variable Baby A FHR category: category 2 Diagnosis, Assessment Plan Diagnosis, Assessment PlanFree Text A P: 31 year old at 32 4/7 weeks GA transverse lie, funic presentation 1.AGA fetus, category 2 tracing, at risk for pretem delivery: celestone, magnesium sulfate, consult2. Chronic hypertensin, labile BP's, , monitor BP, no sign of severe preeclampsia3. cervical foreshortening, threatened delivery bed rest4. previous c/s x 3, repeat c/s5. trichomonas infection by PCR, not fully treated on 05/02 in [facility], treatment completed6. anemia Rx7. contractions: ventolin 2 mg q 6 hrs, progesterone, sq terbutaline continue current care, fetus at risk for cord prolapse, hospital managment fornow at 1854 RPT #:[id number] OF REPORT PRProgress Pjvi6696-09-54W70:53:00F.AMBO75285688-0857WWJcqkt able for patient ezjzPPZIKRNENKZYLZ4363-70-54F85:54:54 [facility] 2021-07-04 18:35:00 [id number]/fud htdzHVBOsHmEKDpr1w6K9FhM2Uf11 yboUIdPwiODqAGD+mEG3WaDXvLO4248-85-12L76:35:00 [facility])OB Antepartum Prog NoteREPORT#:[id number] REPORT STATUS: SignedDATE:07/04/21 TIME: 1835 PATIENT: AICHA BARNES UNIT #: [id number]#: [id number] ROOM/BED: [facility]-ADOB: [birth year] AGE: 31 SEX: F ATTEND: Patricia Pink [facility] AUTHOR: Patricia Pink MD * ALL edits or amendments must be made on the electronic/computer document * Subjective SubjectiveComments:nop complaints, contractions controlled, fetus reassuring ObjectiveVS:Last Documented: Result Date Time B/P Mean 97.0 07/04 1625 Pulse Ox 99 07/04 1625 B/P 136/73 07/04 1625 Pulse 84 07/04 1625 Temp 98.3 07/04 0837 Resp 22 07/04 0837 Vital Signs Date Temp Pulse Resp B/P B/P Mean Pulse Ox FiO2 07/03-07/04 98.3 83-105 22 127-151/68-79 84.0-106.0 99-100 PATIENT WEIGHT: Weight (lb): 227Weight (oz): Weight (kg): 102.965 Membranes: IntactUterine activity: Monitor: toco Frequency (description): noneProcedures: non stress testHEENT: normocephalic w/o injuryCardiac: regular rate and rhythm, no clinically sig murmurLungs: clear to auscultation, no rales, unlabored breathingNeuro: Exam: alert, oriented x3, normal gaitAbdomen: gravid, softLower extremities: Calf tenderness: negativeBaby A: Baby A baseline: 145 bpm Baby A variability: moderate 6-25 bpm Baby A accelerations: 15 X 15 Baby A decelerations: variable Baby A FHR category: category 2 Diagnosis, Assessment Plan Diagnosis, Assessment PlanFree Text A P: 31 year old at 32 3/7 weeks GA transverse lie, funic presentation 1.AGA fetus, category 2 tracing, at risk for pretem delivery: celestone, magnesium sulfate, consult2. Chronic hypertensin, labile BP's, , monitor BP, no sign of severe preeclampsia3. cervical foreshortening, threatened delivery bed rest4. previous c/s x 3, repeat c/s5. trichomonas infection by PCR, not fully treated on 05/02 in [facility], treatment completed6. anemia Rx7. contractions: ventolin 2 mg q 6 hrs, progesterone, sq terbutaline continue current care, fetus at risk for cord prolapse, hospital managment fornow at 1836 RPT #:[id number] OF REPORT PRProgress Eqjs5904-23-91F52:35:00F.EPWU59002721-8762NMYrctm able for patient jmcjYNKPFSRKZXXFFA8178-64-61Q52:36:57 [facility] 2021-07-03 13:24:00 [id number] YP2maBj4BgIVHX2TQQ5dYqD+3G+up c8KNas40qOL0f5rfWVQHlM5PrCf2983-52-56Q35:24:00 [facility] ([facility])OB Antepartum Prog NoteREPORT#:[id number] REPORT STATUS: SignedDATE:07/03/21 TIME: 1324 PATIENT: AICHA BARNES UNIT #: [id number]#: [id number] [address] [birth year] AGE: 31 SEX: F ATTEND: Patricia Pink [facility] AUTHOR: Lorraine Christine MD * ALL edits or amendments must be made on the electronic/computer document * Subjective SubjectivePatient reports: Patient reports: Yes normal movement, No no complaints, No abdominal pain, No vaginal bleeding, No leaking fluid, No contractions ObjectiveVS:Last Documented: Result Date Time B/P Mean 91.0 07/03 1226 B/P 121/75 07/03 1226 Pulse 93 07/03 1226 Pulse Ox 99 07/03 0940 Temp 98.2 06/30 0917 Resp 18 06/30 917 Vital Signs Date Temp Pulse Resp B/P B/P Mean Pulse Ox FiO2 07/02-07/03 82-98 121-150/60-97 82.0-114.0 99 PATIENT WEIGHT: Weight (lb): 227Weight (oz): Weight (kg): 102.965 Procedures: non stress testHEENT: normocephalic w/o injuryNeuro: Exam: alert, oriented x3, normal gaitAbdomen: gravid, softLower extremities: Calf tenderness: negativeBaby A: Baby A baseline: 145 bpm Baby A variability: moderate 6-25 bpm Baby A accelerations: 15 X 15 Baby A decelerations: variable Baby A FHR category: category 2 Diagnosis, Assessment Plan Diagnosis, Assessment PlanAssessment: IUP 32 2/7 WEEKS, CHTN, LABILE, PRIOR CD X 3, ptcPlan: continue current managmnt at 1324 RPT #:[id number] OF REPORT PRProgress Lrjd3417-83-25A66:24:00F.VJHO50591095-5681YPTzjwd able for patient gywgUDVDJYLGAFOSVV6748-67-88B54:25:06 [facility] 2021-07-02 21:33:00 [id number] zjwVfgPE8RQZnogyApIgFTWV1TpTM OcT/m6TwFxdzMtF3eboMmndIlHI4810-10-93O89:33:00 [facility])OB Antepartum Prog NoteREPORT#:[id number] REPORT STATUS: SignedDATE:07/02/21 TIME: 2132 PATIENT: AICHA BARNES UNIT #: [id number]#: [id number] [address] [birth year] AGE: 31 SEX: F ATTEND: Patricia Pink [facility] AUTHOR: Lorraine Christine MD * ALL edits or amendments must be made on the electronic/computer document * Subjective SubjectivePatient reports: Patient reports: Yes normal movement, No no complaints, No abdominal pain, No vaginal bleeding, No leaking fluid, No contractionsComments:SEEN AROUND 8AM Objective Nursing Documentation ReviewNursing data:The data set between the solid lines has been imported from nursing documentation. Any exceptions have been noted below under Provider comments. ROM date: ROM time: Labor onset date: Labor onset time: Provider comments on imported nursing data: [] VS:Last Documented: Result Date Time B/P Mean 100.0 07/02 2009 B/P 150/70 07/02 2009 Pulse 93 07/02 2009 Pulse Ox 100 07/01 214 Temp 98.2 06/30 917 Resp 18 06/30 917 Vital Signs Date Temp Pulse Resp B/P B/P Mean Pulse Ox FiO2 07/01-07/02 79-103 131-150/66-97 94.0-114.0 100 PATIENT WEIGHT: Weight (lb): 227Weight (oz): Weight (kg): 102.965 Uterine activity: Monitor: toco Frequency (description): noneProcedures: non stress testNeuro: Exam: alert, oriented x3, normal gaitAbdomen: gravid, softLower extremities: Calf tenderness: negativeBaby A: Baby A baseline: 145 bpm Baby A variability: moderate 6-25 bpm Baby A accelerations: 15 X 15 Baby A decelerations: variable Baby A FHR category: category 2 Diagnosis, Assessment Plan Diagnosis, Assessment PlanAssessment: IUP 32 1/7 WEEKS, CHTN, LABILE, PRIOR CD X 3, ptcPlan: continue current managmnt at 2134 RPT #:[id number] OF REPORT PRProgress Crox6593-10-79U41:33:00F.UUJV20235259-1018TDVuijf able for patient anqlRNOIHXBUOHOSOJ2310-11-38T63:35:04 [facility] 2021-07-01 18:39:00 [id number] Uj5wr2uKxqS0CXNyg0ieKmrZP2sep 2W15Y1NfHrXHvamGbjK6G5PYBnP6304-16-44G07:39:00 [facility])OB Antepartum Prog NoteREPORT#:[id number] REPORT STATUS: SignedDATE:07/01/21 TIME: 1838 PATIENT: AICHA BARNES UNIT #: [id number]#: [id number] [address] [birth year] AGE: 31 SEX: F ATTEND: Patricia Pink AUTHOR: Patricia Pink MD * ALL edits or amendments must be made on the electronic/computer document * Subjective SubjectiveComments:no complaints, contractions controlled, fetus withraare decelerations ObjectiveVS:Last Documented: Result Date Time B/P Mean 94.0 07/01 1637 B/P 128/77 07/01 1637 Pulse 103 07/01 1637 Temp 98.2 06/30 09 Resp 18 06/30 09 Pulse Ox 100 06/29 1845 Vital Signs Date Temp Pulse Resp B/P B/P Mean Pulse Ox FiO2 06/30-07/01 87-103 115-147/57-77 82.0-101.0 PATIENT WEIGHT: Weight (lb): 227Weight (oz): Weight (kg): 102.965 Membranes: IntactUterine activity: Monitor: toco Frequency (description): noneProcedures: non stress testHEENT: normocephalic w/o injuryCardiac: regular rate and rhythm, no clinically sig murmurLungs: clear to auscultation, no rales, unlabored breathingNeuro: Exam: alert, oriented x3, normal gaitAbdomen: gravid, softLower extremities: Calf tenderness: negativeBaby A: Baby A baseline: 145 bpm Baby A variability: moderate 6-25 bpm Baby A accelerations: 15 X 15 Baby A decelerations: variable Baby A FHR category: category 2 Diagnosis, Assessment Plan Diagnosis, Assessment PlanFree Text A P:31 year old at 32 weeks GA transverse lie, funic presentation 1.AGA fetus, category 2 tracing, at risk for pretem delivery: celestone, magnesium sulfate, consult2. Chronic hypertensin, labile BP's, , monitor BP, no sign of severe preeclampsia3. cervical foreshortening, threatened delivery bed rest4. previous c/s x 3, repeat c/s5. trichomonas infection by PCR, not fully treated on 05/02 in [facility], Flagyl, treatment completed6. anemia Rx7. contractions: ventolin 2 mg q 6 hrs, progesterone, sq terbutaline continue current care, fetus at risk for cord prolapse, hospital managment fornow at 1840 RPT #:[id number] OF REPORT PRProgress Peon5893-12-99F26:39:00F.SIVX85932372-7226OKQavwn able for patient uwyqNSNUSSZCDUDLPK9520-32-65V48:40:42 [facility] 2021-06-30 08:24:00 RRqttbluhju66513775X quoWYcWMXH+9ENASWHnVtp5rYTeVt JA9kuN7FnvRn6s4jkDPQ79WLyTMp7bj9lz7831-32-01X24:2 4:00 [facility]OB Antepartum Prog NoteREPORT#:[id number] REPORT STATUS: SignedDATE:06/30/21 TIME: 823 PATIENT: AICHA BARNES UNIT #: [id number]#: [id number] ROOM/BED: [facility]-ADOB: [birth year] AGE: 31 SEX: F ATTEND: Patricia Pink [facility] AUTHOR: Patricia Pink MD * ALL edits or amendments must be made on the electronic/computer document * Subjective SubjectiveComments:contractions in better cntrol, fetus with mild variables, overall reassuring ObjectiveVS:Last Documented: Result Date Time B/P Mean 85.0 06/30 0554 B/P 131/59 06/30 0554 Pulse 87 06/30 0554 Pulse Ox 100 06/29 1845 Temp 98.4 06/29 0951 Resp 16 06/28 0918 Vital Signs Date Temp Pulse Resp B/P B/P Mean Pulse Ox FiO2 06/29-06/30 98.4 83-100 123-133/59-88 85.0-104.0 100 PATIENT WEIGHT: Weight (lb): 227Weight (oz): Weight (kg): 102.965 Membranes: IntactUterine activity: Monitor: toco Frequency (description): noneProcedures: non stress testHEENT: normocephalic w/o injuryCardiac: regular rate and rhythm, no clinically sig murmurLungs: clear to auscultation, no rales, unlabored breathingNeuro: Exam: alert, oriented x3, normal gaitAbdomen: gravid, softLower extremities: Calf tenderness: negativeBaby A: Baby A baseline: 145 bpm Baby A variability: moderate 6-25 bpm Baby A accelerations: 15 X 15 Baby A decelerations: variable Baby A FHR category: category 2 Diagnosis, Assessment Plan Diagnosis, Assessment PlanFree Text A P:31 year old at 31 6/7 weeks GA transverse lie, funic presentation 1.AGA fetus, category 2 tracing, at risk for pretem delivery: celestone, magnesium sulfate, consult2. Chronic hypertensin, labile BP's, , monitor BP, no sign of severe preeclampsia3. cervical foreshortening, threatened delivery bed rest4. previous c/s x 3, repeat c/s5. trichomonas infection by PCR, not fully treated on 05/02 in [facility], treatment completed6. anemia Rx7. contractions: ventolin 2 mg q 6 hrs, progesterone, sq terbutaline continue current care, fetus at risk for cord prolapse, hospital managment fornow at 0825 [facility] #:[id number] OF REPORT PRProgress Alrb0788-33-19Y71:24:00F.YWOS95060652-3115JCChabo able for patient ibfaYGOMZAOAAXPBUF7916-04-19W19:26:13 [facility] 2021-06-29 04:56:00 VFxenirnpeb55286170D A//embprdbyJkA9QP4aJSCQCp22Ls YZTF5y5kDB9KVC38uZZvTshs2teJT2/Jx96929-04-78E11:5 6:00 [facility]OB Antepartum Prog NoteREPORT#:[id number] REPORT STATUS: SignedDATE:06/29/21 TIME: 0456 PATIENT: AICHA BARNES UNIT #: [id number]#: [id number] [address] [birth year] AGE: 31 SEX: F ATTEND: Patricia Pink AUTHOR: Patricia Pink MD * ALL edits or amendments must be made on the electronic/computer document * Subjective SubjectiveComments:had severe pain and contractions last night, responded to sq terbutaline, sedation ObjectiveVS:Last Documented: Result Date Time B/P Mean 96.0 06/28 2355 B/P 121/85 06/28 2355 Pulse 93 06/28 2355 Pulse Ox 98 06/28 1943 Temp 98.1 06/28 0918 Resp 16 06/28 0918 Vital Signs Date Temp Pulse Resp B/P B/P Mean Pulse Ox FiO2 06/28 98.1 85-105 16 119-143/56-85 81.0-99.0 98-99 PATIENT WEIGHT: Weight (lb): 227Weight (oz): Weight (kg): 102.965 Membranes: IntactUterine activity: Monitor: toco Frequency (description): noneProcedures: non stress testHEENT: normocephalic w/o injuryCardiac: regular rate and rhythm, no clinically sig murmurLungs: clear to auscultation, no rales, unlabored breathingNeuro: Exam: alert, oriented x3, normal gaitAbdomen: gravid, softLower extremities: Calf tenderness: negativeBaby A: Baby A baseline: 145 bpm Baby A variability: moderate 6-25 bpm Baby A accelerations: 15 X 15 Baby A decelerations: variable Baby A FHR category: category 2 Diagnosis, Assessment Plan Diagnosis, Assessment PlanFree Text A P:31 year old at 31 5/7 weeks GA transverse lie, funic presentation 1.AGA fetus, category 2 tracing, at risk for pretem delivery: celestone, magnesium sulfate, consult2. Chronic hypertensin, labile BP's, , monitor BP, no sign of severe preeclampsia3. cervical foreshortening, threatened delivery bed rest4. previous c/s x 3, repeat c/s5. trichomonas infection by PCR, not fully treated on 05/02 in [facility], treatment completed6. anemia Rx7. contractions: ventolin 2 mg q 6 hrs, progesterone, sq terbutaline continue current care, fetus at risk for cord prolapse, hospital managment fornow at 0457 RPT #:[id number] OF REPORT PRProgress Jwqa0133-56-53L50:56:00F.SLJO41472322-0311VBSyknc able for patient ajowWOYUTTPRISLGXZ4063-18-39D32:57:59 [facility] 2021-06-28 18:04:00 [id number] 8l6nONzc95EIBKnP2WDJ5gX6FgL9d uHtIe+65WW4vw6giCCMQ+kBsbl4iP3XgPJ6436-93-36U33:0 4:00 [facility]OB Antepartum Prog NoteREPORT#:[id number] REPORT STATUS: SignedDATE:06/28/21 TIME: 180 PATIENT: AICHA BARNES UNIT #: [id number]#: [id number] ROOM/BED: [facility]-ADOB: [birth year] AGE: 31 SEX: F ATTEND: Patricia Pink [facility] AUTHOR: Patricia Pink MD * ALL edits or amendments must be made on the electronic/computer document * Subjective SubjectiveComments:RECURRENT VARIABLE DECELERATIONS, [place] REASSURING, GOOD RECOVERY, CONTRACTIONS CONTROLLED ObjectiveVS:Last Documented: Result Date Time B/P Mean 81.0 06/28 1716 Pulse Ox 98 06/28 1716 B/P 119/56 06/28 1716 Pulse 105 06/28 1716 Temp 98.1 06/28 0918 Resp 16 06/28 0918 Vital Signs Date Temp Pulse Resp B/P B/P Mean Pulse Ox FiO2 06/27-06/28 98.1 85-105 16 119-143/56-77 81.0-98.0 98-99 PATIENT WEIGHT: Weight (lb): 227Weight (oz): Weight (kg): 102.965 Medications:Active Meds + DC'd Last 24 HrsZolpidem Tartrate 5 MG BEDTIME PRN PRN PO Folic Acid 1 MG DAILY PO Albuterol Sulfate 2 MG Q6HR PO Progesterone 200 MG BEDTIME VAGINAL (CKD) Ferrous Sulfate 325 MG BID MEALS PO Multivi/Iron Carb/Fe Sulf/FA/Prenat 1 TAB DAILY PO Acetaminophen 650 MG Q4H PRN PRN PO Al Hydrox/Mg Hydrox/Simethicone 30 ML Q4H PRN PRN PO Lactated Ringer's 1,000 ML ASDIR IV Magnesium Hydroxide 30 ML Q6H PRN PRN PO Ondansetron HCl 4 MG Q6H PRN PRN PO Polyethylene Glycol 17 GM DAILY PRN PRN PO Docusate Sodium 100 MG 0900,2100 PO Membranes: IntactUterine activity: Monitor: toco Frequency (description): noneProcedures: non stress testHEENT: normocephalic w/o injuryCardiac: regular rate and rhythm, no clinically sig murmurLungs: clear to auscultation, no rales, unlabored breathingNeuro: Exam: alert, oriented x3, normal gaitAbdomen: gravid, softLower extremities: Calf tenderness: negativeBaby A: Baby A baseline: 145 bpm Baby A variability: moderate 6-25 bpm Baby A accelerations: 15 X 15 Baby A decelerations: variable Baby A FHR category: category 2 Diagnosis, Assessment Plan Diagnosis, Assessment PlanFree Text A P: 31 year old at 31 4/7 weeks GA transverse lie, funic presentation 1.AGA fetus, category 2 tracing, at risk for pretem delivery: celestone, magnesium sulfate, consult2. Chronic hypertensin, labile BP's, , monitor BP, no sign of severe preeclampsia3. cervical foreshortening, threatened delivery bed rest4. previous c/s x 3, repeat c/s5. trichomonas infection by PCR, [facility], treatment completed6. anemia Rx7. contractions: ventolin 2 mg q 6 hrs, progesterone, sq terbutaline continue current care, fetus at risk for cord prolapse, hospital managment fornow at 1806 RPT #:[id number] OF REPORT PRProgress Mqxm4314-03-66K09:04:00F.DOUA24526480-4048PBCdxrp able for patient poefNCYQIGEOHCGGGV4527-89-38Z52:06:38 [facility] 2021-06-27 18:42:00 [id number] qqspmVJjnSxGLiWquAlOqWNdd+Ea6 t2Nm4Ki73Y7Z7t+Nfx/nGUcQwC6PBEHD0j6471-15-37K65:4 2:00 [facility] ([facility])OB Antepartum Prog NoteREPORT#:[id number] REPORT STATUS: SignedDATE:06/27/21 TIME: 1841 PATIENT: AICHA BARNES UNIT #: [id number]#: [id number] ROOM/BED: [facility]-ADOB: [birth year] AGE: 31 SEX: F ATTEND: Patricia Pink [facility] AUTHOR: Patricia Pink MD * ALL edits or amendments must be made on the electronic/computer document * Subjective SubjectiveComments:no complaints, contractions controlled, fetus with mild variable decelerations ObjectiveVS:Last Documented: Result Date Time B/P Mean 79.0 06/27 1600 B/P 116/57 06/27 1600 Pulse 87 06/27 1600 Temp 98.0 06/27 1256 Pulse Ox 100 06/27 0847 Resp 20 06/27 0421 Vital Signs Date Temp Pulse Resp B/P B/P Mean Pulse Ox FiO2 06/26-06/27 98.0-98.5 78-102 20 109-116/52-79 75.0-91.0 99-100 PATIENT WEIGHT: Weight (lb): 227Weight (oz): Weight (kg): 102.965 Membranes: IntactUterine activity: Monitor: toco Frequency (description): noneProcedures: non stress testHEENT: normocephalic w/o injuryCardiac: regular rate and rhythm, no clinically sig murmurLungs: clear to auscultation, no rales, unlabored breathingNeuro: Exam: alert, oriented x3, normal gaitAbdomen: gravid, softLower extremities: Calf tenderness: negativeBaby A: Baby A baseline: 145 bpm Baby A variability: moderate 6-25 bpm Baby A accelerations: 15 X 15 Baby A decelerations: variable Baby A FHR category: category 2 Diagnosis, Assessment Plan Diagnosis, Assessment PlanFree Text A P:31 year old at 31 3/7 weeks GA transverse lie, funic presentation 1.AGA fetus, category 2 tracing, at risk for pretem delivery: celestone, magnesium sulfate, consult2. Chronic hypertensin, labile BP's, , monitor BP, no sign of severe preeclampsia3. cervical foreshortening, threatened delivery bed rest4. previous c/s x 3, repeat c/s5. trichomonas infection by PCR, not fully treated on 05/02 in [facility], [facility], treatment completed6. anemia Rx7. contractions: ventolin 2 mg q 6 hrs, progesterone, sq terbutaline continue current care, fetus at risk for cord prolapse, hospital managment fornow at 1843 RPT #:[id number] OF REPORT PRProgress Ikox8213-89-18A57:42:00F.PCDR33955230-6012BMWjsjb able for patient rxfuZUFUXJZWYIEPPV5734-18-66E07:43:38 [facility] 2021-06-26 12:15:00 YZsipobrkey09089613Y AB2GDD7wfyBW1inWOyEGCZKO8PRPp p4zQGURk10H3bktx6VaQTnjfw4wcjGRf2h6079-57-32C49:1 5:00 [facility]OB Antepartum Prog NoteREPORT#:[id number] REPORT STATUS: SignedDATE:06/26/21 TIME: 1215 PATIENT: AICHA BARNES UNIT #: [id number]#: [id number] [address] [birth year] AGE: 31 SEX: F ATTEND: Patricia Pink [facility] AUTHOR: Shoaib Gann MD * ALL edits or amendments must be made on the electronic/computer document * Subjective SubjectivePatient reports: Patient reports: Yes normal movement, No abdominal pain, No vaginal bleeding, No leakingfluid, No contractions ObjectiveMembranes: IntactUterine activity: Monitor: toco Frequency (description): noneProcedures: non stress testHEENT: normocephalic w/o injuryCardiac: regular rate and rhythm, no clinically sig murmurLungs: clear to auscultation, no rales, unlabored breathingNeuro: Exam: alert, oriented x3, normal gaitAbdomen: gravid, softLower extremities: Calf tenderness: negativeBaby A: Baby A baseline: 145 bpm Baby A variability: moderate 6-25 bpm Baby A accelerations: 15 X 15 Baby A decelerations: variable Baby A FHR category: category 2 Diagnosis, Assessment Plan Diagnosis, Assessment PlanFree Text A P:31 year old at 31 3/7weeks GA transverse lie, funic presentation 1.AGA fetus, category 2 tracing, at risk for pretem delivery: celestone, magnesium sulfate, consult2. Chronic hypertensin, labile BP's, , monitor BP, no sign of severe preeclampsia3. cervical foreshortening, threatened delivery bed rest4. previous c/s x 3, repeat c/s5. trichomonas infection by PCR, not fully treated on 05/02 [facility], treatment completed6. anemia Rx7. contractions: ventolin 2 mg q 6 hrs, progesterone, sq terbutaline continue current care, fetus at risk for cord prolapse, hospital managment fornow Assessment: IUP 31 2/7 WEEKS, CHTN, LABILE, PRIOR CD X 3Assessment: IUP 31 3/7 WEEKS, CHTN, LABILE, PRIOR CD X 3Plan: continue current managmnt at 1216 RPT #:[id number] OF REPORT PRProgress Kmgx2605-23-86V17:15:00F.CMWN04592415-1973VHTztvx able for patient beuyHIBBXZRVJSPRFV7598-39-07Q62:16:42 [facility] 2021-06-25 11:11:00 VBxkrvadtyy89190300Y wvzY9pJEDt1fWmS7hboWW9HATxhxj HA7+U85W+yB1NgX2QOOxfDSDNRabwB3Gas2854-73-14S13:1 1:00 [facility]OB Antepartum Prog NoteREPORT#:[id number] REPORT STATUS: SignedDATE:06/25/21 TIME: 1110 PATIENT: AICHA BARNES UNIT #: [id number]#: [id number] [address] [birth year] AGE: 31 SEX: F ATTEND: Patricia Pink [facility] AUTHOR: Shoaib Gann MD * ALL edits or amendments must be made on the electronic/computer document * Subjective SubjectivePatient reports: Patient reports: Yes normal movement, No abdominal pain, No vaginal bleeding, No leakingfluid, No contractions ObjectiveMembranes: IntactUterine activity: Monitor: toco Frequency (description): noneProcedures: non stress testHEENT: normocephalic w/o injuryCardiac: regular rate and rhythm, no clinically sig murmurLungs: clear to auscultation, no rales, unlabored breathingNeuro: Exam: alert, oriented x3, normal gaitAbdomen: gravid, softLower extremities: Calf tenderness: negativeBaby A: Baby A baseline: 145 bpm Baby A variability: moderate 6-25 bpm Baby A accelerations: 15 X 15 Baby A decelerations: variable Baby A FHR category: category 2 Diagnosis, Assessment Plan Diagnosis, Assessment PlanFree Text A P:31 year old at 31 2/7weeks GA transverse lie, funic presentation 1.AGA fetus, category 2 tracing, at risk for pretem delivery: celestone, magnesium sulfate, consult2. Chronic hypertensin, labile BP's, , monitor BP, no sign of severe preeclampsia3. cervical foreshortening, threatened delivery bed rest4. previous c/s x 3, repeat c/s5. trichomonas infection by PCR, not fully treated on 05/02 in [facility], [facility], treatment completed6. anemia Rx7. contractions: ventolin 2 mg q 6 hrs, progesterone, sq terbutaline continue current care, fetus at risk for cord prolapse, hospital managment fornow Assessment: IUP 31 2/7 WEEKS, CHTN, LABILE, PRIOR CD X 3Plan: continue current managmnt at 1112 RPT #:[id number] OF REPORT PRProgress Yfsd8306-98-58S72:11:00F.[id number] able for patient pjnpBQUFEVGGBARMYH1970-46-78G46:13:15 [facility] 2021-06-24 18:26:00 TPrknssipcw25697194m //MylrAFg2S8fsnJ4vRtIuU+3xG2U kgHqWgW9cwrVAm2SezKudwpCzehcw0rAtU6228-83-45J27:2 6:00 [facility]OB Antepartum Prog NoteREPORT#:[id number] REPORT STATUS: SignedDATE:06/24/21 TIME: 1825 PATIENT: AICHA BARNES UNIT #: [id number]#: [id number] ROOM/BED: [facility]-ADOB: [birth year] AGE: 31 SEX: F ATTEND: Patricia Pink AUTHOR: Patricia Pink MD * ALL edits or amendments must be made on the electronic/computer document * Subjective SubjectiveComments:increased frequency of contractions, periodic decelerations. no discharge ObjectiveVS:Last Documented: Result Date Time B/P Mean 81.0 06/24 931 B/P 110/59 06/24 931 Pulse 105 06/24 931 Pulse Ox 100 06/23 2014 Temp 98.5 06/22 1234 Resp 18 06/22 1234 Vital Signs Date Temp Pulse Resp B/P B/P Mean Pulse Ox FiO2 06/23-06/24 86-105 97-116/50-60 70.0-83.0 100 PATIENT WEIGHT: Weight (lb): 227Weight (oz): Weight (kg): 102.965 Medications:Active Meds + DC'd Last 24 HrsZolpidem Tartrate 5 MG BEDTIME PRN PRN PO Folic Acid 1 MG DAILY PO Albuterol Sulfate 2 MG Q6HR PO Progesterone 200 MG BEDTIME VAGINAL (CKD) Ferrous Sulfate 325 MG BID MEALS PO Multivi/Iron Carb/Fe Sulf/FA/Prenat 1 TAB DAILY PO Acetaminophen 650 MG Q4H PRN PRN PO Al Hydrox/Mg Hydrox/Simethicone 30 ML Q4H PRN PRN PO Lactated Ringer's 1,000 ML ASDIR IV Magnesium Hydroxide 30 ML Q6H PRN PRN PO Ondansetron HCl 4 MG Q6H PRN PRN PO Polyethylene Glycol 17 GM DAILY PRN PRN PO Docusate Sodium 100 MG 0900,2100 PO Membranes: IntactUterine activity: Monitor: toco Frequency (description): noneProcedures: non stress testHEENT: normocephalic w/o injuryCardiac: regular rate and rhythm, no clinically sig murmurLungs: clear to auscultation, no rales, unlabored breathingNeuro: Exam: alert, oriented x3, normal gaitAbdomen: gravid, softLower extremities: Calf tenderness: negativeBaby A: Baby A baseline: 145 bpm Baby A variability: moderate 6-25 bpm Baby A accelerations: 15 X 15 Baby A decelerations: variable Baby A FHR category: category 2 Diagnosis, Assessment Plan Diagnosis, Assessment PlanFree Text A P: 31 year old at 31weeks GA transverse lie, funic presentation 1.AGA fetus, category 2 tracing, at risk for pretem delivery: celestone, magnesium sulfate, consult2. Chronic hypertensin, labile BP's, , monitor BP, no sign of severe preeclampsia3. cervical foreshortening, threatened delivery bed rest4. previous c/s x 3, repeat c/s5. trichomonas infection by PCR, not fully treated on 05/02 in [facility], [facility], treatment completed6. anemia Rx7. contractions: ventolin 2 mg q 6 hrs, progesterone, sq terbutaline continue current care, fetus at risk for cord prolapse, hospital managment fornow at 1859Assessment: IUP 29 2/7 WEEKS, CHTN, LABILE, PRIOR CD X 3Plan: continue current managmnt at 1828 RPT #:[id number] OF REPORT PRProgress Espt0015-09-00J85:26:00F.KEMF39997265-1021USBagiv able for patient tspgFCCVCLCFTDOLID4667-56-09V82:28:19 [facility] 2021-06-23 18:58:00 ZQjwmkcivja13553089W X8W0dgmiUSOG6afCOl2Gc2DXT8PKx y9qoZmoxyhdgAFVEacIacZVVfxapKamdOq4810-81-26M77:5 8:00 [facility]OB Antepartum Prog NoteREPORT#:[id number] REPORT STATUS: SignedDATE:06/23/21 TIME: 1857 PATIENT: AICHA BARNES UNIT #: [id number]#: [id number] ROOM/BED: [facility]-ADOB: [birth year] AGE: 31 SEX: F ATTEND: Patricia Pink [facility] AUTHOR: Patricia Pink MD * ALL edits or amendments must be made on the electronic/computer document * Subjective SubjectiveComments:no complaints, contractions controlled, fetus with variable ObjectiveVS:Last Documented: Result Date Time B/P Mean 81.0 06/23 1553 B/P 112/58 06/23 1553 Pulse 111 06/23 1553 Pulse Ox 98 06/23 1552 Temp 98.5 06/22 1234 Resp 18 06/22 1234 Vital Signs Date Temp Pulse Resp B/P B/P Mean Pulse Ox FiO2 06/22-06/23 89-154 103-121/51-78 71.0-92.0 76-98 PATIENT WEIGHT: Weight (lb): 227Weight (oz): Weight (kg): 102.965 Membranes: IntactUterine activity: Monitor: toco Frequency (description): noneProcedures: non stress testHEENT: normocephalic w/o injuryCardiac: regular rate and rhythm, no clinically sig murmurLungs: clear to auscultation, no rales, unlabored breathingNeuro: Exam: alert, oriented x3, normal gaitAbdomen: gravid, softLower extremities: Calf tenderness: negativeBaby A: Baby A baseline: 145 bpm Baby A variability: moderate 6-25 bpm Baby A accelerations: 15 X 15 Baby A decelerations: variable Baby A FHR category: category 2 Diagnosis, Assessment Plan Diagnosis, Assessment PlanFree Text A P:31 year old at 30 6/7 weeks GA transverse lie, funic presentation 1.AGA fetus, category 2 tracing, at risk for pretem delivery: celestone, magnesium sulfate, consult2. Chronic hypertensin, labile BP's, , monitor BP, no sign of severe preeclampsia3. cervical foreshortening, threatened delivery bed rest4. previous c/s x 3, repeat c/s5. trichomonas infection by PCR, not fully treated on 05/02 in [facility], [facility], treatment completed6. anemia Rx7. contractions: ventolin 2 mg q 6 hrs, progesterone, sq terbutaline continue current care, fetus at risk for cord prolapse, hospital managment fornow at 1859 RPT #:[id number] OF REPORT PRProgress Bnso8501-86-59L96:58:00F.YOLO36311773-6827BPXvthe able for patient sbedVGSUWNFDHRMLTJ9522-98-67V82:00:01 [facility] 2021-06-22 18:54:00 AXuurqgxqfc01089517L 6gn4grPR12cDe3nZmbvd5LToIFPBp 0zyE2e88UOTwlmx3NWClX4xCavZieGbJGT2311-01-09Z30:5 4:00 [facility]OB Antepartum Prog NoteREPORT#:[id number] REPORT STATUS: SignedDATE:06/22/21 TIME: 1853 PATIENT: ACIHA BARNES UNIT #: [id number]#: [id number] [address] [birth year] AGE: 31 SEX: F ATTEND: Patricia Pink AUTHOR: Patricia Pink MD * ALL edits or amendments must be made on the electronic/computer document * Subjective SubjectiveComments:had severeal prolonged variable decelerartions, recovered. Contractions status quo ObjectiveVS:Last Documented: Result Date Time B/P Mean 88.0 06/22 1234 Pulse Ox 98 06/22 1234 B/P 116/72 06/22 1234 Temp 98.5 06/22 1234 Pulse 88 / 1234 Resp 18 06/22 1234 Vital Signs Date Temp Pulse Resp B/P B/P Mean Pulse Ox FiO2 06/21-06/22 98.3-98.5 85-99 18 106-117/56-72 81.0-88.0 98 PATIENT WEIGHT: Weight (lb): 227Weight (oz): Weight (kg): 102.965 Membranes: IntactUterine activity: Monitor: toco Frequency (description): noneProcedures: non stress testHEENT: normocephalic w/o injuryCardiac: regular rate and rhythm, no clinically sig murmurLungs: clear to auscultation, no rales, unlabored breathingNeuro: Exam: alert, oriented x3, normal gaitAbdomen: gravid, softLower extremities: Calf tenderness: negativeBaby A: Baby A baseline: 145 bpm Baby A variability: moderate 6-25 bpm Baby A accelerations: 15 X 15 Baby A decelerations: variable Baby A FHR category: category 2 Diagnosis, Assessment Plan Diagnosis, Assessment PlanFree Text A P:31 year old at 30 5/7 weeks GA transverse lie, funic presentation 1.AGA fetus, category 2 tracing, at risk for pretem delivery: celestone, magnesium sulfate, consult2. Chronic hypertensin, labile BP's, , monitor BP, no sign of severe preeclampsia3. cervical foreshortening, threatened delivery bed rest4. previous c/s x 3, repeat c/s5. trichomonas infection by PCR, not fully treated on 05/02 in [facility], [facility], treatment completed6. anemia Rx7. contractions: ventolin 2 mg q 6 hrs, progesterone, sq terbutaline continue current care, fetus at risk for cord prolapse, hospital managment fornow at 1856 RPT #:[id number] OF REPORT PRProgress Bpid9679-98-63D14:54:00F.FUJC27243091-6595GEOocab able for patient kpcqMTNUDVNZDDJBTC0308-77-17E57:56:29 [facility] 2021-06-21 19:12:00 HFcbyzefbbc85363995t UZx4te+1wuMQGdosT8jq4SQ/hwHwM M248z8JnmDumJlB6Ii2Z2Q38ZjdojWRmGI3994-73-16K26:1 2:00 [facility])OB Antepartum Prog NoteREPORT#:[id number] REPORT STATUS: SignedDATE:06/21/21 TIME: 1911 PATIENT: AICHA BARNES UNIT #: [id number]#: [id number] ROOM/BED: [facility]-ADOB: [birth year] AGE: 31 SEX: F ATTEND: Patricia Pink [facility] AUTHOR: Patricia Pink MD * ALL edits or amendments must be made on the electronic/computer document * Subjective SubjectiveComments:no complaints, contractions increased, requiring sq terbutaline, overall reassuring fetus ObjectiveVS:Last Documented: Result Date Time B/P Mean 84.0 06/21 1757 Pulse Ox 100 06/21 1757 B/P 119/63 06/21 1757 Temp 98.4 06/21 1757 Pulse 92 06/21 1757 Resp 18 06/21 1222 Vital Signs Date Temp Pulse Resp B/P B/P Mean Pulse Ox FiO2 06/20-06/21 98.4-98.8 87-99 18 95-119/50-63 65.0-84.0 100 PATIENT WEIGHT: Weight (lb): 227Weight (oz): Weight (kg): 102.965 Membranes: IntactUterine activity: Monitor: toco Frequency (description): noneProcedures: non stress testHEENT: normocephalic w/o injuryCardiac: regular rate and rhythm, no clinically sig murmurLungs: clear to auscultation, no rales, unlabored breathingNeuro: Exam: alert, oriented x3, normal gaitAbdomen: gravid, softLower extremities: Calf tenderness: negativeBaby A: Baby A baseline: 145 bpm Baby A variability: moderate 6-25 bpm Baby A accelerations: 15 X 15 Baby A FHR category: category 1 Diagnosis, Assessment Plan Diagnosis, Assessment PlanFree Text A P:31 year old at 30 4/7 weeks GA transverse lie, funic presentation 1.AGA fetus, category 1 tracing, at risk for pretem delivery: celestone, magnesium sulfate, consult2. Chronic hypertensin, labile BP's, , monitor BP, no sign of severe preeclampsia3. cervical foreshortening, threatened delivery bed rest4. previous c/s x 3, repeat c/s5. trichomonas infection by PCR, not fully treated on 05/02 in [facility], treatment completed6. anemia Rx7. contractions: ventolin 2 mg q 6 hrs, progesterone, sq terbutaline continue current care, fetus at risk for cord prolapse, hospital managment fornow at 1914 RPT #:[id number] OF REPORT PRProgress Jbya3507-12-93E08:12:00F.MFWH71987141-3662CWFervo able for patient yrvgIQRTKIOGLQFJMI4513-62-45Y36:14:17 [facility] 2021-06-20 19:25:00 FBqqshdqwzj72378994N 7Xj8JE/AzaAUdbyfetMAb2u4vO18H QTPBfC8weArPmAXSUIgqNxw4h0nPrbCrhN3274-35-52U68:2 5:00 [facility]OB Antepartum Prog NoteREPORT#:[id number] REPORT STATUS: SignedDATE:06/20/21 TIME: 1924 PATIENT: AICHA BARNES UNIT #: [id number]#: [id number] [address] [birth year] AGE: 31 SEX: F ATTEND: Patricai Pink [facility] AUTHOR: Ric Rivera MD * ALL edits or amendments must be made on the electronic/computer document * Subjective SubjectivePatient reports: Patient reports: Yes no complaints, Yes normal movement, No abdominal pain, No vaginal bleeding, No leaking fluid, No contractions, No headache, No blurred vision, No scotomata, No fever, No chills Objective Nursing Documentation ReviewNursing data:The data set between the solid lines has been imported from nursing documentation. Any exceptions have been noted below under Provider comments. ROM date: ROM time: Labor onset date: Labor onset time: Provider comments on imported nursing data: [] VS:Last Documented: Result Date Time B/P Mean 86.0 06/20 1748 B/P 117/70 06/20 1748 Pulse 94 06/20 1748 Pulse Ox 99 06/20 1232 Resp 16 06/20 1232 Temp 98.4 06/19 1616 Vital Signs Date Temp Pulse Resp B/P B/P Mean Pulse Ox FiO2 06/19-06/20 87-102 16-18 101-142/46-70 67.0-90.0 99 PATIENT WEIGHT: Weight (lb): 227Weight (oz): Weight (kg): 102.965 Medications:Active Meds + DC'd Last 24 HrsAlbuterol Sulfate 2 MG Q6HR PO Progesterone 200 MG BEDTIME VAGINAL (CKD) Ferrous Sulfate 325 MG BID MEALS PO Multivi/Iron Carb/Fe Sulf/FA/Prenat 1 TAB DAILY PO Acetaminophen 650 MG Q4H PRN PRN PO Al Hydrox/Mg Hydrox/Simethicone 30 ML Q4H PRN PRN PO Lactated Ringer's 1,000 ML ASDIR IV Magnesium Hydroxide 30 ML Q6H PRN PRN PO Ondansetron HCl 4 MG Q6H PRN PRN PO Polyethylene Glycol 17 GM DAILY PRN PRN PO Zolpidem Tartrate 5 MG BEDTIME PRN PRN PO Docusate Sodium 100 MG 0900,2100 PO Membranes: IntactUterine activity: Monitor: toco Frequency (description): noneProcedures: non stress testHEENT: normocephalic w/o injuryCardiac: regular rate and rhythm, no clinically sig murmurLungs: clear to auscultation, no rales, unlabored breathingNeuro: Exam: alert, oriented x3, normal gaitAbdomen: gravid, softLower extremities: Calf tenderness: negativeBaby A: Baby A baseline: 145 bpm Baby A variability: moderate 6-25 bpm Baby A accelerations: 15 X 15 Baby A FHR category: category 1 Diagnosis, Assessment Plan Diagnosis, Assessment PlanFree Text A P: 31 year old at 30 3/7 weeks GA transverse lie, funic presentation (on admission) 1.AGA fetus, category 1 tracing, at risk for pretem delivery: S/P celestone, magnesium sulfate, consult2. CHTN, labile BP's; no symptoms / signs of severe preeclampsia3. Cervical shortening, threatened delivery bed rest4. Previous c/s x 3, for repeat c/s5. H/O Trichomonas infection; completed treatment 6. Macrocytic reterm contractions: ventolin 2 mg q 6 hrs, progesterone Stable / Had more uterine activity yesterday; none today.Ccontinue current care / FA 1 mg qd addedAssessment: IUP 29 2/7 WEEKS, CHTN, LABILE, PRIOR CD X 3Plan: continue current managmnt at 1930 RPT #:[id number] OF REPORT PRProgress Towf7770-30-40Q38:25:00F.PNNX73181507-4098DUQmhtz able for patient sgiiJCDNQQUCVNXSCQ0080-61-11I45:31:11 [facility] 2021-06-19 12:26:00 BHiryrrsxva51893063k 1Pgt3wtv7lXlwmvfbyQbqoaVXnmvI 8JHcNYdg3ZAy3tCaKJMBo4qqrLwusw2LkG8975-98-64I81:2 6:00 [facility] Consultation NoteREPORT#:[id number] REPORT STATUS: SignedDATE:06/19/21 TIME: 1226 PATIENT: AICHA BARNES UNIT #: [id number]#: [id number] [address] [birth year] AGE: 31 SEX: F ATTEND: Patricia Pink AUTHOR: Patricia Pink MD * ALL edits or amendments must be made on the electronic/computer document * History of Present Illness HPIReason for consult:ultrasound History Past HistoryAllergies:Coded Allergies:No Known Allergies (05/08/21) Objective Physical ExamVS/I O:Last Documented: Result Date Time B/P Mean 94.0 06/19 918 B/P 129/76 06/19 918 Pulse 104 06/19 918 Pulse Ox 99 06/18 1621 Temp 98.4 06/18 1210 Resp 18 06/18 1210 PATIENT WEIGHT: Weight (lb): 227Weight (oz): Weight (kg): 102.965 ResultsRadiology data:ultrasound indication 30 2/7 weeks Gacervical foreshortening, funnelingPTLchronic hypertensionprevious c/s x 3 findings: mckeon back up transverse liefunic presentationendocervical funneling to 1.6 cmpolyhydramios EFREN 27S/D 3.04EFW 1210 gms, 57 % for GABPP8/8 at 1325 RPT #:[id number] OF REPORT LWOvjoojgfzemq2042-88-79Q59:26:00F.MHNP91623913-0 191AVAvailable for patient lypxHZMEAYXVZWCVME5796-25-70M95:26:01 [facility] 2021-06-19 12:26:00 THhpmuwwblt72786533k 5DFvP8zWn0B8Ftfnq6NeMVn32WaUy I5elWQ3I8aaMuCJLxWiWHq9p+Iekt0ycdQ9115-57-47L14:2 6:00 [facility] Consultation NoteREPORT#:[id number] REPORT STATUS: SignedDATE:06/19/21 TIME: 1226 PATIENT: AICHA BARNES UNIT #: [id number]#: [id number] ROOM/BED: [facility]-ADOB: [birth year] AGE: 31 SEX: F ATTEND: Patricia Pink [facility] AUTHOR: Patricia Pink MD * ALL edits or amendments must be made on the electronic/computer document * See AddendumHistory of Present Illness HPIReason for consult:ultrasound History Past HistoryAllergies:Coded Allergies:No Known Allergies (05/08/21) Objective Physical ExamVS/I O:Last Documented: Result Date Time B/P Mean 94.0 09/05 0918 B/P 129/76 06/19 918 Pulse 104 06/19 918 Pulse Ox 99 06/18 1621 Temp 98.4 06/18 1210 Resp 18 06/18 1210 PATIENT WEIGHT: Weight (lb): 227Weight (oz): Weight (kg): 102.965 ResultsRadiology data:ultrasound indication 30 2/7 weeks Gacervical foreshortening, funnelingPTLchronic hypertensionprevious c/s x 3 findings: mckeon back up transverse liefunic presentationendocervical funneling to 1.6 cmpolyhydramios EFREN 27S/D 3.04EFW 1210 gms, 57 % for GABPP8/8 at 1325 Addendum 1: 06/19/21 1334 by Patricia Pink MD ultrasound indication 30 2/7 weeks Gacervical foreshortening, funnelingPTLchronic hypertensionprevious c/s x 3 findings: mckeon back up transverse liefunic presentationendocervical funneling to 1.6 cmpolyhydramios EFREN 19 imporovedS/D 3.1EFW 1890 gms, 74 % for GABPP 8/8 at 1344 RPT #:[id number] OF REPORT VQLxwfhoqdeaqa6687-18-70M24:26:00F.CFCQ68994644-2 191AVAvailable for patient utcbEPOPQXLFVWRXVK5738-14-33Q03:44:12 [facility] 2021-06-19 12:24:00 KAgermdorzz30967080E JwIHvagtHgT1SIsIZ+/pZ6UdM0VaC /yc34M/0cToGfPZM8VBps2bMahOkFasix16328-17-20P83:2 4:00 [facility])OB Antepartum Prog NoteREPORT#:[id number] REPORT STATUS: SignedDATE:06/19/21 TIME: 1224 PATIENT: AICHA BARNES UNIT #: [id number]#: [id number] [address] [birth year] AGE: 31 SEX: F ATTEND: Patricia Pink AUTHOR: Patricia Pink MD * ALL edits or amendments must be made on the electronic/computer document * Subjective SubjectiveComments:no complaints, pelvic pressure not worsening, no discharge ObjectiveVS:Last Documented: Result Date Time B/P Mean 94.0 06/19 0918 B/P 129/76 06/19 0918 Pulse 104 06/19 09 Pulse Ox 99 06/18 1621 Temp 98.4 06/18 1210 Resp 18 06/18 1210 Vital Signs Date Temp Pulse Resp B/P B/P Mean Pulse Ox FiO2 06/18-06/19 93-104 112-130/55-78 72.0-94.0 99 PATIENT WEIGHT: Weight (lb): 227Weight (oz): Weight (kg): 102.965 Membranes: IntactUterine activity: Monitor: toco Frequency (description): noneProcedures: non stress testHEENT: normocephalic w/o injuryCardiac: regular rate and rhythmLungs: unlabored breathingNeuro: Exam: alert, oriented x3, normal gaitAbdomen: gravid, softLower extremities: Calf tenderness: negativeBaby A: Baby A baseline: 145 bpm Baby A variability: moderate 6-25 bpm Baby A accelerations: 15 X 15 Baby A FHR category: category 1 Diagnosis, Assessment Plan Diagnosis, Assessment PlanFree Text A P: 31 year old at 30 2/7 weeks GA transverse lie, funic presentation 1.AGA fetus, category 1 tracing, at risk for pretem delivery: celestone, magnesium sulfate, consult2. Chronic hypertensin, labile BP's, , monitor BP, no sign of severe preeclampsia3. cervical foreshortening, threatened delivery bed rest4. previous c/s x 3, repeat c/s5. trichomonas infection by PCR, not fully treated on 05/02 in [facility], [facility], treatment completed6. anemia Rx7. contractions: ventolin 2 mg q 6 hrs, progesterone continue current care, fetus at risk for cord prolapse, hospital managment fornow ultrasound Assessment: IUP 29 2/7 WEEKS, CHTN, LABILE, PRIOR CD X 3Plan: continue current managmnt at 1226 RPT #:[id number] OF REPORT PRProgress Itbg7834-77-80Y33:24:00F.RROE90281061-9996YAVikfi able for patient vyddKDYITVVTJLJPFF3210-46-97T15:26:39 [facility] 2021-06-18 11:14:00 DGyojslgwmu55431507L 7m7nMh2swV5R5s/Occ+AvPeMGOhBK oHkFjSA4Bo+n5j8dxQwLlvL+S9jipRx17a1762-95-40X75:1 4:00 [facility] ([facility])OB Antepartum Prog NoteREPORT#:[id number] REPORT STATUS: SignedDATE:06/18/21 TIME: 1114 PATIENT: AICHA BARNES UNIT #: [id number]#: [id number] [address] [birth year] AGE: 31 SEX: F ATTEND: Patricia Pink [facility] AUTHOR: Patricia Pink MD * ALL edits or amendments must be made on the electronic/computer document * Subjective SubjectiveComments:mild discharge, complains f pelvic pressure ObjectiveVS:Last Documented: Result Date Time B/P Mean 84.0 06/18 0729 B/P 121/58 06/18 0729 Pulse 112 06/18 0729 Pulse Ox 97 06/18 0728 Temp 98.6 06/17 1716 Resp 19 06/17 0926 Vital Signs Date Temp Pulse Resp B/P B/P Mean Pulse Ox FiO2 06/17-06/18 98.6 90-113 105-126/57-61 73.0-85.0 97-100 PATIENT WEIGHT: Weight (lb): 227Weight (oz): Weight (kg): 102.965 Medications:Active Meds + DC'd Last 24 HrsAlbuterol Sulfate 2 MG Q6HR PO Progesterone 200 MG BEDTIME VAGINAL (CKD) Ferrous Sulfate 325 MG BID MEALS PO Multivi/Iron Carb/Fe Sulf/FA/Prenat 1 TAB DAILY PO Acetaminophen 650 MG Q4H PRN PRN PO Al Hydrox/Mg Hydrox/Simethicone 30 ML Q4H PRN PRN PO Lactated Ringer's 1,000 ML ASDIR IV Magnesium Hydroxide 30 ML Q6H PRN PRN PO Ondansetron HCl 4 MG Q6H PRN PRN PO Polyethylene Glycol 17 GM DAILY PRN PRN PO Zolpidem Tartrate 5 MG BEDTIME PRN PRN PO Docusate Sodium 100 MG 0900,2100 PO Membranes: IntactUterine activity: Monitor: toco Frequency (description): noneProcedures: non stress testHEENT: normocephalic w/o injuryCardiac: regular rate and rhythmLungs: unlabored breathingNeuro: Exam: alert, oriented x3, normal gaitAbdomen: gravid, softLower extremities: Calf tenderness: negativeBaby A: Baby A baseline: 145 bpm Baby A variability: moderate 6-25 bpm Baby A accelerations: 15 X 15 Baby A FHR category: category 1 Diagnosis, Assessment Plan Diagnosis, Assessment PlanFree Text A P: 31 year old at 30 1/7 weeks GA transverse lie, funic presentation 1.AGA fetus, category 1 tracing, at risk for pretem delivery: celestone, magnesium sulfate, consult2. Chronic hypertensin, labile BP's, , monitor BP, no sign of severe preeclampsia3. cervical foreshortening, threatened delivery bed rest4. previous c/s x 3, repeat c/s5. trichomonas infection by PCR, not fully treated on 05/02 in [facility], [facility], treatment completed6. anemia Rx7. contractions: ventolin 2 mg q 6 hrs, progesterone continue current care, fetus at risk for cord prolapse, hospital managment fornow at 1114 RPT #:[id number] OF REPORT PRProgress Nddp1557-61-25S36:14:00F.BPBK93635184-4183TJNgrcv able for patient bkwqCVKVGIKCUPIDWQ3893-01-37Y65:14:59 [facility] 2021-06-17 18:42:00 WRgpdenpgkb87966640c 4rKnz79KfR8kojpvESh+JosYwc3Jl 9jULXASwtWPi6/mETG7MsFewilNVUyavJx4939-52-61Q84:4 2:00 [facility] ([facility])OB Antepartum Prog NoteREPORT#:[id number] REPORT STATUS: SignedDATE:06/17/21 TIME: 1841 PATIENT: AICHA BARNES UNIT #: [id number]#: [id number] ROOM/BED: [facility]-ADOB: [birth year] AGE: 31 SEX: F ATTEND: Patricia Pink AUTHOR: Patricia Pink MD * ALL edits or amendments must be made on the electronic/computer document * Subjective SubjectiveComments:no complaints of leakage of fluid, increased discharge. fetus active. no bleeding ObjectiveVS:Last Documented: Result Date Time B/P Mean 79.0 06/17 1716 Pulse Ox 100 06/17 1716 B/P 109/57 06/17 1716 Temp 98.6 06/17 1716 Pulse 100 / 1716 Resp 19 06/17 0926 Vital Signs Date Temp Pulse Resp B/P B/P Mean Pulse Ox FiO2 /-06/17 98.4-98.6 96-111 19 88-124/51-74 66.0-89.0 99-100 PATIENT WEIGHT: Weight (lb): 227Weight (oz): Weight (kg): 102.965 Membranes: IntactUterine activity: Monitor: toco Frequency (description): noneProcedures: non stress testHEENT: normocephalic w/o injuryCardiac: regular rate and rhythmLungs: unlabored breathingNeuro: Exam: alert, oriented x3, normal gaitAbdomen: gravid, softLower extremities: Calf tenderness: negativeBaby A: Baby A baseline: 145 bpm Baby A variability: moderate 6-25 bpm Baby A accelerations: 15 X 15 Baby A FHR category: category 1 Diagnosis, Assessment Plan Diagnosis, Assessment PlanFree Text A P: 31 year old at 30 weeks GA transverse lie, funic presentation 1.AGA fetus, category 1 tracing, at risk for pretem delivery: celestone, magnesium sulfate, consult2. Chronic hypertensin, labile BP's, , monitor BP, no sign of severe preeclampsia3. cervical foreshortening, threatened delivery bed rest4. previous c/s x 3, repeat c/s5. trichomonas infection by PCR, not fully treated on 05/02 in [facility], [facility], treatment completed6. anemia Rx7. contractions: ventolin 2 mg q 6 hrs, progesterone continue current care, fetus at risk for cord prolapse, hospital managment fornow at 1843 RPT #:[id number] OF REPORT PRProgress Bjkn4102-86-92V35:42:00F.GJAT00620888-1334YEQzsic able for patient bexzQPXSMJWBIKJLUT8931-83-30Q71:43:30 [facility] 2021-06-16 19:02:00 JBeosovefge33355193I 3Tz1vC2OyhCPZwEQXuK6SzW1zmA2Y /mzaWWupSdrULwdDD7J51mJAX4VJGNLV1341-10-07K49:0 2:00 [facility])OB Antepartum Prog NoteREPORT#:[id number] REPORT STATUS: SignedDATE:06/16/21 TIME: 1901 PATIENT: AICHA BARNES UNIT #: [id number]#: [id number] [address] [birth year] AGE: 31 SEX: F ATTEND: Patricia Pink [facility] AUTHOR: Patricia Pink MD * ALL edits or amendments must be made on the electronic/computer document * Subjective SubjectiveComments:contractions controlled, minimal discharge ObjectiveVS:Last Documented: Result Date Time B/P Mean 81.0 06/16 1621 Pulse Ox 99 06/16 1621 B/P 114/64 06/16 1621 Temp 98.2 06/16 1621 Pulse 98 06/16 1621 Resp 18 06/16 0901 Vital SignsDate Temp Pulse Resp B/P B/P Mean Pulse Ox JkW667/-06/16 98.1-98.4 98-108 18-20 105-121/55-84 74.0-95.0 99-100 PATIENT WEIGHT: Weight (lb): 227Weight (oz): Weight (kg): 102.965 Membranes: IntactUterine activity: Monitor: toco Frequency (description): noneProcedures: non stress testHEENT: normocephalic w/o injuryCardiac: regular rate and rhythmLungs: unlabored breathingNeuro: Exam: alert, oriented x3, normal gaitAbdomen: gravid, softLower extremities: Calf tenderness: negativeBaby A: Baby A baseline: 145 bpm Baby A variability: moderate 6-25 bpm Baby A accelerations: 15 X 15 Baby A FHR category: category 1 Diagnosis, Assessment Plan Diagnosis, Assessment PlanFree Text A P:31 year old at 29 6/7 weeks GA transverse lie, funic presentation 1.AGA fetus, category 1 tracing, at risk for pretem delivery: celestone, magnesium sulfate, consult2. Chronic hypertensin, labile BP's, , monitor BP, no sign of severe preeclampsia3. cervical foreshortening, threatened delivery bed rest4. previous c/s x 3, repeat c/s5. trichomonas infection by PCR, not fully treated on 05/02 in [facility], [facility], treatment completed6. anemia Rx7. contractions: ventolin 2 mg q 6 hrs, progesterone continue current care, fetus at risk for cord prolapse, hospital managment fornow at 1902 RPT #:[id number] OF REPORT PRProgress Etgm5578-27-09Z34:02:00F.GNRZ00006433-5267PNFweua able for patient hildGLEXGCHZYHFRZU8065-63-42P51:02:51 [facility] 2021-06-15 19:33:00 MQpsjivtkld74462890k n+cc4Pb36sdGTK2c2VgcTnvZ4Xjj4 Jb42WMzxjW+MRM9mrbFFGWmBTa55Tbo3zP9083-13-25A37:3 3:00 [facility]OB Antepartum Prog NoteREPORT#:[id number] REPORT STATUS: SignedDATE:06/15/21 TIME: 1932 PATIENT: AICHA BARNES UNIT #: [id number]#: [id number] [address] [birth year] AGE: 31 SEX: F ATTEND: Patricia Pink AUTHOR: Patricia Pink MD * ALL edits or amendments must be made on the electronic/computer document * Subjective SubjectiveComments:no discharge or bleeding ObjectiveVS:Last Documented: Result Date Time B/P Mean 111.0 06/15 1722 B/P 138/89 06/15 1722 Pulse 107 06/15 1722 Pulse Ox 100 06/15 0935 Temp 98.6 06/15 0015 Resp 18 06/15 0015 Vital Signs Date Temp Pulse Resp B/P B/P Mean Pulse Ox FiO2 06/14-06/15 98.6 92-108 18 98-138/55-89 74.0-111.0 100 PATIENT WEIGHT: Weight (lb): 227Weight (oz): Weight (kg): 102.965 Membranes: IntactUterine activity: Monitor: toco Frequency (description): noneProcedures: non stress testHEENT: normocephalic w/o injuryCardiac: regular rate and rhythmLungs: unlabored breathingNeuro: Exam: alert, oriented x3, normal gaitAbdomen: gravid, softLower extremities: Calf tenderness: negativeBaby A: Baby A baseline: 145 bpm Baby A variability: moderate 6-25 bpm Baby A accelerations: 15 X 15 Baby A FHR category: category 1 Diagnosis, Assessment Plan Diagnosis, Assessment PlanFree Text A P:31 year old at 29 5/7 weeks GA transverse lie, funic presentation 1.AGA fetus, category 1 tracing, at risk for pretem delivery: celestone, magnesium sulfate, consult2. Chronic hypertensin, labile BP's, , monitor BP, no sign of severe preeclampsia3. cervical foreshortening, threatened delivery bed rest4. previous c/s x 3, repeat c/s5. trichomonas infection by PCR, not fully treated on 05/02 in [facility], Flagyl, treatment completed6. anemia Rx7. contractions: ventolin 2 mg q 6 hrs, progesterone continue current care, fetus at risk for cord prolapse, hospital managment fornow at 1934 RPT #:[id number] OF REPORT PRProgress Odjo2205-65-08C14:33:00F.KLAE66413569-2494SUIqevt able for patient qwmnWKEDHIGHAWRXGI2576-74-23H79:34:25 [facility] 2021-06-14 19:56:00 FVryexhwvyr60305298z tX1tdIv8DNZDyB+dA7FM8bsJnAqvt BK7O+fnMZM0P+d4XVjzlgbJfC6V4wm/mni5409-09-21W66:5 6:00 [facility]OB Antepartum Prog NoteREPORT#:[id number] REPORT STATUS: SignedDATE:06/14/21 TIME: 1955 PATIENT: AICHA BARNES UNIT #: [id number]#: [id number] [address] [birth year] AGE: 31 SEX: F ATTEND: Patricia Pink [facility] AUTHOR: Patricia Pink MD * ALL edits or amendments must be made on the electronic/computer document * Subjective SubjectiveComments:no complaitns, contractions controlled, feus reassuring ObjectiveVS:Last Documented: Result Date Time B/P Mean 86.0 06/14 1756 B/P 118/65 06/14 1756 Pulse 96 06/14 1756 Pulse Ox 99 06/14 1141 Temp 98.5 06/14 1135 Resp 16 06/14 1135 Vital SignsDate Temp Pulse Resp B/P B/P Mean Pulse Ox WhI538/30-06/14 98.3-98.6 92-110 16-20 100-139/49-67 70.0-86.0 98-99 PATIENT WEIGHT: Weight (lb): 227Weight (oz): Weight (kg): 102.965 Membranes: IntactUterine activity: Monitor: toco Frequency (description): noneProcedures: non stress testHEENT: normocephalic w/o injuryCardiac: regular rate and rhythmLungs: unlabored breathingNeuro: Exam: alert, oriented x3, normal gaitAbdomen: gravid, softLower extremities: Calf tenderness: negativeBaby A: Baby A baseline: 145 bpm Baby A variability: moderate 6-25 bpm Baby A accelerations: 15 X 15 Baby A FHR category: category 1 Diagnosis, Assessment Plan Diagnosis, Assessment PlanFree Text A P:31 year old at 29 4/7 weeks GA transverse lie, funic presentation 1.AGA fetus, category 1 tracing, at risk for pretem delivery: celestone, magnesium sulfate, consult2. Chronic hypertensin, labile BP's, , monitor BP, no sign of severe preeclampsia3. cervical foreshortening, threatened delivery bed rest4. previous c/s x 3, repeat c/s5. trichomonas infection by PCR, not fully treated on 05/02 in [facility], [facility], treatment completed6. anemia Rx7. contractions: ventolin 2 mg q 6 hrs, progesterone continue current care, fetus at risk for cord prolapse, hospital managment fornow at 1957 RPT #:[id number] OF REPORT PRProgress Bonl0330-89-98O17:56:00F.HPNH19086068-5302EDUauoy able for patient crtoFLMCQGHHUPFRQI0040-37-88M58:57:40 [facility] 2021-06-13 11:28:00 INnfbuqhxij43694595J lY+l1YBJjAuROdfhT84RVuvDbZFND nYUXioS7S8dx3QJ3e9C15axufj+5WTcBti1430-49-83S34:2 8:00 [facility])OB Antepartum Prog NoteREPORT#:[id number] REPORT STATUS: SignedDATE:06/13/21 TIME: 112 PATIENT: AICHA BARNES UNIT #: [id number]#: [id number] [address] [birth year] AGE: 31 SEX: F ATTEND: JoesphPatricia [facility] AUTHOR: Chery Pimentel DO R2 * ALL edits or amendments must be made on the electronic/computer document * Subjective SubjectiveCurrent EGA: Current EGA(wks): 29 Current EGA(days): 3Patient reports: Patient reports: Yes: normal movement. No: complaints, abdominal pain, vaginal bleeding, leaking fluid, contractions. Review of SystemsConstitutional:Denies: chills, fatigue, fever. GI:Denies: nausea, vomiting. :Denies: vaginal bleeding, vaginal discharge. Neuro:Denies: headache, vision change. ObjectiveVS:Last Documented: Result Date Time B/P Mean 82.0 06/13 1200 B/P 112/64 06/13 1200 Temp 36.9 06/13 1200 Pulse 87 06/13 1200 Pulse Ox 100 06/13 1158 Resp 18 06/09 0855 Vital Signs Date Temp Pulse Resp B/P B/P Mean Pulse Ox FiO2 06/12-06/13 36.8-36.9 87-122 108-126/58-65 78.0-88.0 98-100 PATIENT WEIGHT: Weight (lb): 227Weight (oz): Weight (kg): 102.965 Membranes: IntactUterine activity: Monitor: toco Frequency (description): noneProcedures: non stress testHEENT: normocephalic w/o injuryCardiac: regular rate and rhythmLungs: unlabored breathingNeuro: Exam: alert, oriented x3, normal gaitAbdomen: gravid, softLower extremities: Calf tenderness: negativeBaby A: Baby A baseline: 145 bpm Baby A variability: moderate 6-25 bpm Baby A accelerations: 15 X 15 Baby A FHR category: category 1 Diagnosis, Assessment Plan Diagnosis, Assessment PlanFree text A P:31 year old BOY at 29 3/7 GA transverse lie, funic presentation 1.AGA fetus, category 1 tracing, at risk for pretem delivery: celestone, magnesium sulfate, consult2. Chronic hypertension, labile BP's, monitor BP, no sign of severe preeclampsia3. cervical foreshortening, threatened delivery bed rest4. previous c/s x 3, repeat c/s5. trichomonas infection by PCR, not fully treated on 05/02 in [facility], Flagyl, treatment completed6. anemia Rx7. contractions: ventolin 2 mg q 6 hrs, progesterone Plan - continue current care, fetus at risk for cord prolapse, hospital managment for now Assessment: reassuring status, status post betamethasone, status post magnesiumPlan: continue current managmnt at 1351 RPT #:[id number] OF REPORT PRProgress Xkmi0939-24-42A86:28:00F.DQIU75487981-0899SJPudys able for patient usbwFRDIWGMFVNYCLG2080-11-86F41:52:03 [facility] 2021-06-13 11:28:00 UUwqmrsjwrm52702614e GHr60r0KQ9f3c25OfjgbYgX0qwTHT lBSy8NpmA0AJbOUto1Y5AZmIbZiicQ+P3d6291-49-76P57:2 8:00 [facility]OB Antepartum Prog NoteREPORT#:[id number] REPORT STATUS: SignedDATE:06/13/21 TIME: 1128 PATIENT: AICHA BARNES UNIT #: [id number]#: [id number] ROOM/BED: [facility]-ADOB: [birth year] AGE: 31 SEX: F ATTEND: Patricia Pink MDA AUTHOR: Chery Pimentel * ALL edits or amendments must be made on the electronic/computer document * Chery Pimentel 06/13/21 1128:Subjective SubjectiveCurrent EGA: Current EGA(wks): 29 Current EGA(days): 3Patient reports: Patient reports: Yes: normal movement. No: complaints, abdominal pain, vaginal bleeding, leaking fluid, contractions. Review of SystemsConstitutional:Denies: chills, fatigue, fever. GI:Denies: nausea, vomiting. :Denies: vaginal bleeding, vaginal discharge. Neuro:Denies: headache, vision change. ObjectiveVS:Last Documented: Result Date Time B/P Mean 82.0 06/13 1200 B/P 112/64 06/13 1200 Temp 36.9 06/13 1200 Pulse 87 06/13 1200 Pulse Ox 100 06/13 1158 Resp 18 06/09 0855 Vital Signs Date Temp Pulse Resp B/P B/P Mean Pulse Ox FiO2 06/12-06/13 36.8-36.9 87-122 108-126/58-65 78.0-88.0 98-100 PATIENT WEIGHT: Weight (lb): 227Weight (oz): Weight (kg): 102.965 Membranes: IntactUterine activity: Monitor: toco Frequency (description): noneProcedures: non stress testHEENT: normocephalic w/o injuryCardiac: regular rate and rhythmLungs: unlabored breathingNeuro: Exam: alert, oriented x3, normal gaitAbdomen: gravid, softLower extremities: Calf tenderness: negativeBaby A: Baby A baseline: 145 bpm Baby A variability: moderate 6-25 bpm Baby A accelerations: 15 X 15 Baby A FHR category: category 1 Diagnosis, Assessment Plan Diagnosis, Assessment PlanFree text A P:31 year old BOY at 29 3/7 GA transverse lie, funic presentation 1.AGA fetus, category 1 tracing, at risk for pretem delivery: celestone, magnesium sulfate, consult2. Chronic hypertension, labile BP's, monitor BP, no sign of severe preeclampsia3. cervical foreshortening, threatened delivery bed rest4. previous c/s x 3, repeat c/s5. trichomonas infection by PCR, not fully treated on 05/02 in [facility], Ap, treatment completed6. anemia Rx7. contractions: ventolin 2 mg q 6 hrs, progesterone Plan - continue current care, fetus at risk for cord prolapse, hospital managment for now Assessment: reassuring status, status post betamethasone, status post magnesiumPlan: continue current managmnt Nikko Martin 06/13/21 1552:Attestations Physician AttestationAgree w/findings plan:I was present during the sunshine or critical portions of the service provides by theresident. I examined the patient and discussed the patient's management with theresident. I reviewed the residents note and agree with the documented findings, assessment and plan of care at 1351 at 1553 RPT #:[id number] OF REPORT PRProgress Mqqk2823-47-30S49:28:00F.VISX19392765-9476AQZeoqy able for patient dzolVTABKAZMHROFPY8249-80-29Q06:53:31 [facility] 2021-06-12 15:19:00 EBnkuqfszuq39070568Z 2lwG5nQqlmOYpUWIAlDv3z1S3veIv Stx2BjQ/N/kLRzTBe8QjIeg0ml6SytfCfx1996-86-12U69:1 9:00 [facility] ([facility])OB Antepartum Prog NoteREPORT#:[id number] REPORT STATUS: SignedDATE:06/12/21 TIME: 151 PATIENT: AICHA BARNES UNIT #: [id number]#: [id number] [address] [birth year] AGE: 31 SEX: F ATTEND: Patriica Pink MDA AUTHOR: Lorraine Christine MD * ALL edits or amendments must be made on the electronic/computer document * Subjective SubjectivePatient reports: Patient reports: Yes normal movement, No no complaints, No abdominal pain, No vaginal bleeding, No leaking fluid, No contractions ObjectiveVS:Last Documented: Result Date Time B/P Mean 76.0 06/12 1200 B/P 113/57 06/12 1200 Temp 98.2 06/12 1200 Pulse 99 06/12 1200 Pulse Ox 96 06/12 0853 Resp 18 06/09 0855 Vital Signs Date Temp Pulse Resp B/P B/P Mean Pulse Ox FiO2 06/11-06/12 98.2 87-109 107-119/56-61 75.0-84.0 96-100 PATIENT WEIGHT: Weight (lb): 227Weight (oz): Weight (kg): 102.965 Uterine activity: Monitor: toco Frequency (description): noneProcedures: non stress testHEENT: normocephalic w/o injuryNeuro: Exam: alert, oriented x3, normal gaitAbdomen: gravid, softLower extremities: Calf tenderness: negativeBaby A: Baby A baseline: 140 bpm Baby A variability: moderate 6-25 bpm Baby A accelerations: 15 X 15 Baby A FHR category: category 1 Diagnosis, Assessment Plan Diagnosis, Assessment PlanAssessment: IUP 29 2/7 WEEKS, CHTN, LABILE, PRIOR CD X 3Plan: continue current managmnt at 1520 RPT #:[id number] OF REPORT PRProgress Sfse9624-89-08W00:19:00F.GZOS69811060-4184EFQijgs able for patient vfrxTALIPBTNPGYXNR8658-59-20T62:20:11 [facility] 2021-06-11 18:09:00 YIknvylttet18986829v lhpv+nIxHsRTgJDCL4bLwRsjS9hEm 0dppZIzvl7vYqgntfRCdiZFoGzO5FMPAGv4963-13-22R17:0 9:00 [facility]OB Antepartum Prog NoteREPORT#:[id number] REPORT STATUS: SignedDATE:06/11/21 TIME: 180 PATIENT: AICHA BARNES UNIT #: [id number]#: [id number] [address] [birth year] AGE: 31 SEX: F ATTEND: Patricia Pink [facility] AUTHOR: Lorraine Christine MD * ALL edits or amendments must be made on the electronic/computer document * Subjective SubjectivePatient reports: Patient reports: Yes normal movement, No no complaints, No abdominal pain, No vaginal bleeding, No leaking fluid, No contractions ObjectiveVS:Last Documented: Result Date Time Pulse Ox 100 06/11 1547 Pulse 97 06/11 1547 B/P Mean 82.0 06/11 1546 B/P 117/59 06/11 1546 Temp 98.5 06/11 1121 Resp 18 06/09 0855 Vital Signs Date Temp Pulse Resp B/P B/P Mean Pulse Ox FiO2 06/10-06/11 98.5 88-104 91-122/50-67 65.0-86.0 99-100 PATIENT WEIGHT: Weight (lb): 227Weight (oz): Weight (kg): 102.965 Uterine activity: Monitor: toco Frequency (description): noneProcedures: non stress testHEENT: normocephalic w/o injuryNeuro: Exam: alert, oriented x3, normal gaitAbdomen: gravid, softLower extremities: Calf tenderness: negativeBaby A: Baby A baseline: 140 bpm Baby A variability: moderate 6-25 bpm Baby A accelerations: 15 X 15 Baby A FHR category: category 1 Diagnosis, Assessment Plan Diagnosis, Assessment PlanAssessment: IUP 29 1/7 WEEKS, CHTN, LABILE, PRIOR CD X 3Plan: continue current managmnt at 1810 RPT #:[id number] OF REPORT PRProgress Hygv6291-93-24E22:09:00F.DPJM73042208-0684LQSymcv able for patient ilgjKETXSYCITEZJLF0578-36-71L57:10:18 [facility] 2021-06-10 07:48:00 EHeuvgyzosj32048268F jQPWNYJHMjTQcxj8ig3Cft5lgwtIQ yZ6yksvJZhGFVZDT8X7MV2Y3Aex++hBf3D9095-24-75I81:4 8:00 [facility])OB Antepartum Prog NoteREPORT#:[id number] REPORT STATUS: SignedDATE:06/10/21 TIME: 0748 PATIENT: MOLLYAICHA UNIT #: [id number]#: [id number] [address] [birth year] AGE: 31 SEX: F ATTEND: Patricia Pink AUTHOR: Patricia Pink MD * ALL edits or amendments must be made on the electronic/computer document * Subjective SubjectiveComments:patient had abdominal pain and subtle contractions lastight, responded to sq terbutaline, Now on ventolin, imporved. No bleeding or discharge ObjectiveVS:Last Documented: Result Date Time B/P Mean 89.0 06/10 0547 B/P 126/75 06/10 0547 Pulse 76 06/10 0547 Pulse Ox 100 06/09 2318 Temp 98.5 06/09 1612 Resp 18 06/09 0855 Vital Signs Date Temp Pulse Resp B/P B/P Mean Pulse Ox FiO2 06/09-06/10 98.4-98.5 62-111 18 102-133/53-75 73.0-92.0 79-100 PATIENT WEIGHT: Weight (lb): 227Weight (oz): Weight (kg): 102.965 Membranes: IntactUterine activity: Monitor: toco Frequency (description): noneProcedures: non stress testCardiac: regular rate and rhythmLungs: unlabored breathingNeuro: Exam: alert, oriented x3, normal gaitAbdomen: gravid, softLower extremities: Calf tenderness: negativeBaby A: Baby A baseline: 140 bpm Baby A variability: moderate 6-25 bpm Baby A accelerations: 15 X 15 Baby A FHR category: category 1 Diagnosis, Assessment Plan Diagnosis, Assessment PlanFree Text A P:31 year old at 29 weeks GA transverse lie, funic presentation 1.AGA fetus, category 1 tracing, at risk for pretem delivery: celestone, magnesium sulfate, consult2. Chronic hypertensin, labile BP's, , monitor BP, no sign of severe preeclampsia3. cervical foreshortening, threatened delivery bed rest4. previous c/s x 3, repeat c/s5. trichomonas infection by PCR, not fully treated on 05/02 in [facility], Ap, treatment completed6. anemia Rx7. contractions: ventolin 2 mg q 6 hrs, progesterone continue current care, fetus at ris for cord prolapse, hospital managment for now at 0750 RPT #:[id number] OF REPORT PRProgress Ewhj9315-95-41S84:48:00F.XSMF69783296-2270ESIardq able for patient fzkxMHAGAIGHNWNRYT9267-47-86J80:50:36 [facility] 2021-06-09 19:55:00 ONbdrcbmtjk29818449p OQP5EjeKDPVb8h02XyBrGzq94kwG+ TNAqbFDtn36Gb/Iuh279FKYPLT6aor5yLq5789-49-07Y85:5 5:00 [facility] ([facility])OB Antepartum Prog NoteREPORT#:[id number] REPORT STATUS: SignedDATE:06/09/21 TIME: 1954 PATIENT: AICHA BARNES UNIT #: [id number]#: [id number] [address] [birth year] AGE: 31 SEX: F ATTEND: Patricia Pink [facility] AUTHOR: Patricia Pink MD * ALL edits or amendments must be made on the electronic/computer document * Subjective SubjectiveComments:no complaints, contractions 4-6 /hr, not painful, fetus reassuring Objective Nursing Documentation ReviewNursing data: VS:Last Documented: Result Date Time B/P Mean 84.0 06/09 1614 B/P 133/61 06/09 1614 Pulse 102 06/09 1614 Pulse Ox 99 06/09 1612 Temp 98.5 06/09 1612 Resp 18 06/09 0855 Vital Signs Date Temp Pulse Resp B/P B/P Mean Pulse Ox FiO2 06/08-06/09 98.4-98.5 62-111 18 102-133/55-71 76.0-84.0 79-100 PATIENT WEIGHT: Weight (lb): 227Weight (oz): Weight (kg): 102.965 Membranes: IntactUterine activity: Monitor: toco Frequency (description): noneProcedures: non stress testCardiac: regular rate and rhythmLungs: unlabored breathingNeuro: Exam: alert, oriented x3, normal gaitAbdomen: gravid, softLower extremities: Calf tenderness: negativeBaby A: Baby A baseline: 140 bpm Baby A variability: moderate 6-25 bpm Baby A accelerations: 15 X 15 Baby A FHR category: category 1 Diagnosis, Assessment Plan Diagnosis, Assessment PlanFree Text A P:31 year old at 28 6/7 weeks GA transverse lie, funic presentation 1.AGA fetus, category 1 tracing, at risk for pretem delivery: celestone, magnesium sulfate, consult2. Chronic hypertensin, labile BP's, , monitor BP, no sign of severe preeclampsia3. cervical foreshortening, threatened delivery bed rest4. previous c/s x 3, repeat c/s5. trichomonas infection by PCR, not fully treated on 05/02 in [facility], [facility], treatment completed6. anemia Rx7. onset of cotnractions: progesterone continue current care, fetus at ris for cord prolapse, hospital managment for now at 1957 RPT #:[id number] OF REPORT PRProgress Ctko0792-62-02F87:55:00F.RSKW31854928-1486GMKpsbz able for patient rkagRGOOEPGJJVUEAG0566-94-06X09:57:54 [facility] 2021-06-08 18:06:00 [id number] e5n3aZVSJ8LU2K5poHaPpJN9nhKbF 3KQL9LEvIKnoFtSQ/86mOrttlgvtkT3NbP1014-79-00H72:0 6:00 [facility]OB Antepartum Prog NoteREPORT#:[id number] REPORT STATUS: SignedDATE:06/08/21 TIME: 1805 PATIENT: AICHA BARNES UNIT #: [id number]#: [id number] ROOM/BED: [facility]-ADOB: [birth year] AGE: 31 SEX: F ATTEND: Patricia Pink [facility] AUTHOR: Patricia Pink MD * ALL edits or amendments must be made on the electronic/computer document * Subjective SubjectiveComments:no complaitns, no dschrge, mild contractions ObjectiveVS:Last Documented: Result Date Time B/P Mean 77.0 06/08 1528 B/P 109/55 06/08 1528 Pulse 93 06/08 1528 Temp 98.2 06/08 1117 Pulse Ox 92 06/08 0836 Resp 16 06/08 0836 Vital Signs Date Temp Pulse Resp B/P B/P Mean Pulse Ox FiO2 06/07-06/08 98.2-98.4 71-96 16 93-118/49-57 63.0-81.0 92 PATIENT WEIGHT: Weight (lb): 227Weight (oz): Weight (kg): 102.965 Membranes: IntactUterine activity: Monitor: toco Frequency (description): noneProcedures: non stress testCardiac: regular rate and rhythmLungs: unlabored breathingNeuro: Exam: alert, oriented x3, normal gaitAbdomen: gravid, softLower extremities: Calf tenderness: negativeBaby A: Baby A baseline: 140 bpm Baby A variability: moderate 6-25 bpm Baby A accelerations: 15 X 15 Baby A FHR category: category 1 Diagnosis, Assessment Plan Diagnosis, Assessment PlanFree Text A P:31 year old at 28 5/7 weeks GA transverse lie, funic presentation 1.AGA fetus, category 1 tracing, at risk for pretem delivery: celestone, magnesium sulfate, consult2. Chronic hypertensin, labile BP's, , monitor BP, no sign of severe preeclampsia3. cervical foreshortening, threatened delivery bed rest4. previous c/s x 3, repeat c/s5. trichomonas infection by PCR, not fully treated on 05/02 in [facility], Ap, treatment completed6. anemia Rx continue current care, fetus at ris for cord prolapse, hospital managment for now at 1807 RPT #:[id number] OF REPORT PRProgress Ccoc7239-59-51D17:06:00F.KBRJ91399924-8606NVCpwbr able for patient zgblYWEPKLYTBRRTOT4696-44-35C83:07:51 [facility] 2021-06-07 20:23:00 AWtxjkmhlve25355317u 1Hw6Xye+5fLRKnDwc23J7W3X8g+lg BcUstc0bsNbIhHv7Bwzy3zfVEcw4hJenK20961-01-71G50:2 3:00 [facility] ([facility])OB Antepartum Prog NoteREPORT#:[id number] REPORT STATUS: SignedDATE:06/07/21 TIME: 2022 PATIENT: AICHA BARNES UNIT #: [id number]#: [id number] [address] [birth year] AGE: 31 SEX: F ATTEND: Patricia Pink AUTHOR: Patricia Pink MD * ALL edits or amendments must be made on the electronic/computer document * Subjective SubjectiveCurrent EGA: Current EGA(wks): 28 Current EGA(days): 5Comments:no complaints, contractiosn controled, fetus reassuring ObjectiveVS:Last Documented: Result Date Time B/P Mean 103.0 06/07 1548 B/P 137/79 06/07 1548 Pulse 97 06/07 1548 Pulse Ox 100 06/07 1123 Resp 18 06/07 0602 Temp 98.7 06/06 1616 Vital Signs Date Temp Pulse Resp B/P B/P Mean Pulse Ox FiO2 06/07 97-103 18 93-137/49-79 71.0-103.0 100 PATIENT WEIGHT: Weight (lb): 227Weight (oz): Weight (kg): 102.965 Membranes: IntactUterine activity: Monitor: toco Frequency (description): noneProcedures: non stress testCardiac: regular rate and rhythmLungs: unlabored breathingNeuro: Exam: alert, oriented x3, normal gaitAbdomen: gravid, softLower extremities: Calf tenderness: negativeBaby A: Baby A baseline: 140 bpm Baby A variability: moderate 6-25 bpm Baby A accelerations: 15 X 15 Baby A FHR category: category 1Findings/data:Laboratory Tests: 06/06 2041 Chemistry POC Glucose (65 - 110 mg/dL) 124 H Diagnosis, Assessment Plan Diagnosis, Assessment PlanFree text A P:31 year old at 28 4/7 weeks GA transverse lie, funic presentation 1.AGA fetus, category 1 tracing, at risk for pretem delivery: celestone, magnesium sulfate, consult2. Chronic hypertensin, labile BP's, , monitor BP, no sign of severe preeclampsia3. cervical foreshortening, threatened delivery bed rest4. previous c/s x 3, repeat c/s5. trichomonas infection by PCR, not fully treated on 05/02 in [facility], [facility], treatment completed6. anemia Rx continue current care, fetus at ris for cord prolapse, hospital managment for now at 2023 RPT #:[id number] OF REPORT PRProgress Paod4788-12-91T74:23:00F.MHYF93710196-8838VGYrsam able for patient yrxbZPNWIXDYLJLROQ8036-22-14U13:25:08 [facility] 2021-06-06 19:23:00 KFbifzvksut93573607/ /YhZjaye/h94Wpnhp5V1lnNfoW3+axa IjZSW+tGyVbUod8W4zOGV3VElYoV0Nnh5q9690-11-03W95:2 3:00 [facility]OB Antepartum Prog NoteREPORT#:[id number] REPORT STATUS: SignedDATE:06/06/21 TIME: 1922 PATIENT: AICHA BARNES UNIT #: [id number]#: [id number] ROOM/BED: [facility]-ADOB: [birth year] AGE: 31 SEX: F ATTEND: Patricia Pink [facility] AUTHOR: Patricia Pink MD * ALL edits or amendments must be made on the electronic/computer document * Subjective SubjectiveComments:no complaints, fetus reassrunig, continue mild dischargee ObjectiveVS:Last Documented: Result Date Time B/P Mean 82.0 06/06 161 Pulse Ox 100 06/06 1616 B/P 113/59 06/06 1616 Temp 98.7 06/06 1616 Pulse 88 06/06 1616 Resp 18 06/06 1616 Vital Signs Date Temp Pulse Resp B/P B/P Mean Pulse Ox FiO2 06/05-06/06 97.8-98.7 83-88 18- 113-115/54-59 78.0-82.0 100 PATIENT WEIGHT: Weight (lb): 227Weight (oz): Weight (kg): 102.965 Membranes: IntactUterine activity: Monitor: toco Frequency (description): noneProcedures: non stress testCardiac: regular rate and rhythmLungs: unlabored breathingNeuro: Exam: alert, oriented x3, normal gaitAbdomen: gravid, softLower extremities: Calf tenderness: negativeBaby A: Baby A baseline: 140 bpm Baby A variability: moderate 6-25 bpm Baby A accelerations: 15 X 15 Baby A FHR category: category 1Findings/data:Laboratory Tests: 06/06 06/06 06/06 06/05 1411 0943 0626 1954 Chemistry POC Glucose (65 - 110 mg/dL) 98 85 93 103 Diagnosis, Assessment Plan Diagnosis, Assessment PlanFree Text A P:31 year old at 28 3/7 weeks GA transverse lie, funic presentation 1.AGA fetus, category 1 tracing, at risk for pretem delivery: celestone, magnesium sulfate, consult2. Chronic hypertensin, labile BP's, , monitor BP, no sign of severe preeclampsia3. cervical foreshortening, threatened delivery bed rest4. previous c/s x 3, repeat c/s5. trichomonas infection by PCR, not fully treated on 05/02 in [facility], Ap, treatment completed6. anemia Rx continue current care, fetus at ris for cord prolapse, hospital managment for now at 1925 RPT #:[id number] OF REPORT PRProgress Vtmi0433-44-97C78:23:00F.RYZE67852932-3725KUOvfvp able for patient vbexJXBZPYACPXMSZH5620-76-05I68:25:32 [facility] 2021-06-05 21:18:00 GNheqwizckc44965678+ V7aNNOzHtHHhgGk0Cf3Qxvc925SYb omjkjW8iiUyWUjBYLsABJTsFfFhcDSW0kx5032-06-78C86:1 8:00 [facility] Prog NoteREPORT#:[id number] REPORT STATUS: SignedDATE:06/05/21 TIME: 2117 PATIENT: AICHA BARNES UNIT #: [id number]#: [id number] [address] [birth year] AGE: 31 SEX: F ATTEND: Patricia Pink [facility] AUTHOR: Lorraine Christine MD * ALL edits or amendments must be made on the electronic/computer document * Subjective SubjectivePatient reports: Patient reports: Yes normal movement, No no complaints, No abdominal pain, No vaginal bleeding, No leaking fluid, No contractions ObjectiveVS:Last Documented: Result Date Time Pulse Ox 100 06/05 1954 Pulse 83 06/05 1954 B/P Mean 78.0 06/05 1953 B/P 115/54 06/05 1953 Temp 97.8 06/05 1953 Resp 19 06/05 1953 Vital Signs Date Temp Pulse Resp B/P B/P Mean Pulse Ox FiO2 06/04-06/05 97.8 83-109 19 112-118/54-69 73.0-85.0 100 PATIENT WEIGHT: Weight (lb): 227Weight (oz): Weight (kg): 102.965 Uterine activity: Monitor: toco Frequency (description): noneProcedures: non stress testNeuro: Exam: alert, oriented x3, normal gaitAbdomen: gravid, softLower extremities: Calf tenderness: negativeBaby A: Baby A baseline: 140 bpm Baby A variability: moderate 6-25 bpm Baby A accelerations: 15 X 15 Baby A FHR category: category 1 Diagnosis, Assessment Plan Diagnosis, Assessment PlanFree Text A P:31 year old at 28 2/7 weeks GA 1.AGA fetus, category 1 tracing, at risk for pretem delivery: celestone, magnesium sulfate, consult2. Chronic hypertensin, labile BP's, , monitor BP, no sign of severe preeclampsia3. cervical foreshortening, threaten delivery bed rest4. previous c/s x 3, repeat c/s5. trichomonas infection by PCR, not fully treated on 05/02 in [facility], Flagyl6. anemia Rx continue current care, at 2120 RPT #:[id number] OF REPORT PRProgress Xekt9526-91-52H86:18:00F.GITR34166545-9714PKQapje able for patient twhdNCDACUPSXYMYPI1263-40-62C14:20:12 [facility] 2021-06-04 20:12:00 CXlmdopuzek70601048V LGbRCbjZQkHmc48TT+r6y69LoO9aT ReA0D4SBTTjC1xH6DoqFEwHfrPpuROPvzY1736-46-97V53:1 2:00 [facility]OB Antepartum Prog NoteREPORT#:[id number] REPORT STATUS: SignedDATE:06/04/21 TIME: 2011 PATIENT: AICHA BARNES UNIT #: [id number]#: [id number] [address] [birth year] AGE: 31 SEX: F ATTEND: Patricia Pink MDA AUTHOR: Ric Rivera MD * ALL edits or amendments must be made on the electronic/computer document * Subjective SubjectivePatient reports: Patient reports: Yes normal movement, No no complaints, No abdominal pain, No vaginal bleeding, No leaking fluid, No contractions, No headache, No blurred vision, No scotomata, No fever, No chills Objective Nursing Documentation ReviewNursing data:The data set between the solid lines has been imported from nursing documentation. Any exceptions have been noted below under Provider comments. ROM date: ROM time: Labor onset date: Labor onset time: Provider comments on imported nursing data: [] VS:Last Documented: Result Date Time B/P Mean 94.0 06/04 1547 B/P 135/70 06/04 1547 Pulse 91 06/04 1547 Pulse Ox 100 06/04 1546 Temp 98.7 06/03 1214 Resp 18 06/03 1214 Vital Signs Date Temp Pulse Resp B/P B/P Mean Pulse Ox FiO2 06/03-06/04 90-102 95-135/55-70 73.0-94.0 98-100 PATIENT WEIGHT: Weight (lb): 227Weight (oz): Weight (kg): 102.965 Membranes: IntactUterine activity: Monitor: toco Frequency (description): noneCardiac: regular rate and rhythmLungs: unlabored breathingNeuro: Exam: alert, oriented x3, normal gaitAbdomen: gravid, softLower extremities: Calf tenderness: negativeBaby A: Baby A baseline: 140 bpm Baby A variability: moderate 6-25 bpm Baby A accelerations: 15 X 15 Baby A FHR category: category 1Findings/data:Laboratory Tests: 06/04 06/04 06/04 06/04 1942 1432 1037 0745 Chemistry POC Glucose (65 - 110 mg/dL) 127 H 107 125 H 89 Laboratory Tests: 06/04 06/04 06/04 06/04 1942 1432 1037 0745 Chemistry POC Glucose (65 - 110 mg/dL) 127 H 107 125 H 89 Diagnosis, Assessment Plan Diagnosis, Assessment PlanFree Text A P:A/P1-Prev C/S's x 24-DIKY7-Ixgoo blsitu2-Jpuetahxsfdlrw8-Nryzmnuzza lie / Funic presentation Stable Plan:1-Vaginal progesterone 200 mg qhs2-Continue inpatient managment. at 2021 RPT #:[id number] OF REPORT PRProgress Yojs9119-35-15H56:12:00F.HDYZ83049015-9013BKAgzsi able for patient vdseUGPFTIIFFGKZIL5107-76-14M56:22:34 [facility] 2021-06-03 22:42:00 EYyhdvfakqo47652463A GuDnGy9RceMawSTt/4INXq/Cy0Ag3 7dbun2ANVHZMDh4UNO8bwBG0oX8MRyqe1P3587-00-76R43:4 2:00 [facility] Consultation NoteREPORT#:[id number] REPORT STATUS: SignedDATE:06/03/21 TIME: 2241 PATIENT: AICHA BARNES UNIT #: [id number]#: [id number] ROOM/BED: [facility]-ADOB: [birth year] AGE: 31 SEX: F ATTEND: Patricia Pink [facility] AUTHOR: Patricia Pink MD * ALL edits or amendments must be made on the electronic/computer document * History of Present Illness HPIReason for consult:ultrasound History Past HistoryAllergies:Coded Allergies:No Known Allergies (05/08/21) Objective Physical ExamVS/I O:Last Documented: Result Date Time B/P Mean 73.0 06/03 2108 B/P 95/60 06/03 2108 Pulse 102 06/03 210 Pulse Ox 99 06/03 1633 Temp 98.7 06/03 1214 Resp 18 06/03 1214 PATIENT WEIGHT: Weight (lb): 227Weight (oz): Weight (kg): 102.965 ResultsRadiology data:ultrasound indication 28 weeks Gacervical foreshortening, funnelingPTLchronic hypertensionprevious c/s x 3 findings: mckeon back up transverse liefunic presentationendocervical funneling to 1.6 cmpolyhydramios EFREN 27S/D 3.04EFW 1210 gms, 57 % for GABPP8/8 at 2246 RPT #:[id number] OF REPORT BBLnohwcnblaxm0250-08-59G40:42:00F.ILUO21997940-7 404AVAvailable for patient tlajZRUFKUWQBWBTNU1316-06-58D47:46:40 [facility] 2021-06-03 19:39:00 GUaakiujfsn95632417O 3zheX9AspuGb9J/K3LoiC1ehz4uTZ Rk2MKURqjHAYkRicGh9xxtCnj1T7ea5SoQ4430-41-79I89:3 9:00 [facility]OB Antepartum Prog NoteREPORT#:[id number] REPORT STATUS: SignedDATE:06/03/21 TIME: 1938 PATIENT: AICHA BARNES UNIT #: [id number]#: [id number] [address] [birth year] AGE: 31 SEX: F ATTEND: Patricia Pink [facility] AUTHOR: Patricia Pink MD * ALL edits or amendments must be made on the electronic/computer document * Subjective SubjectiveComments:no complaints, contractions rare, fetus reassuring ObjectiveVS:Last Documented: Result Date Time B/P Mean 79.0 06/03 1634 B/P 117/56 06/03 1634 Pulse 96 06/03 1634 Pulse Ox 99 06/03 1633 Temp 98.7 06/03 1214 Resp 18 06/03 1214 Vital Signs Date Temp Pulse Resp B/P B/P Mean Pulse Ox FiO2 06/02-06/03 98.4-98.7 90-98 16-18 103-135/47-66 68.0-86.0 98-100 PATIENT WEIGHT: Weight (lb): 227Weight (oz): Weight (kg): 102.965 Membranes: IntactUterine activity: Monitor: toco Frequency (description): noneCardiac: regular rate and rhythmLungs: unlabored breathingNeuro: Exam: alert, oriented x3, normal gaitAbdomen: gravid, softLower extremities: Calf tenderness: negativeBaby A: Baby A baseline: 140 bpm Baby A variability: moderate 6-25 bpm Baby A accelerations: 15 X 15 Baby A FHR category: category 1 Diagnosis, Assessment Plan Diagnosis, Assessment PlanFree Text A P:31 year old at 28 0/7 weeks GA 1.AGA fetus, category 1 tracing, at risk for pretem delivery: celestone, magnesium sulfate, consult2. Chronic hypertensin, labile BP's, , monitor BP, no sign of severe preeclampsia3. cervical foreshortening, threaten delivery bed rest4. previous c/s x 3, repeat c/s5. trichomonas infection by PCR, not fully treated on 05/02 in [facility], Flagyl6. anemia Rx continue current care, ultrasound at 1940 RPT #:[id number] OF REPORT PRProgress Mcze4426-38-60B25:39:00F.MEZD05130314-8138TUDktxd able for patient ynsdXFXSRRGRHLKSZF6925-16-28O57:40:45 [facility] 2021-06-03 19:39:00 FYmouiruxfo96949587K XaTq9sa6GrgrgDAvFWiLfsAW0bU7O iIQKsb8QQxF+GNms8KtoC5vZ8QjLrIu5hl9016-24-42Y09:3 9:00 [facility]OB Antepartum Prog NoteREPORT#:[id number] REPORT STATUS: SignedDATE:06/03/21 TIME: 1938 PATIENT: AICHA BARNES UNIT #: [id number]#: [id number] [address] [birth year] AGE: 31 SEX: F ATTEND: Patricia Pink MDADM AUTHOR: Patricia Pink MD * ALL edits or amendments must be made on the electronic/computer document * See AddendumSubjective SubjectiveComments:no complaints, contractions rare, fetus reassuring ObjectiveVS:Last Documented: Result Date Time B/P Mean 79.0 06/03 1634 B/P 117/56 06/03 1634 Pulse 96 06/03 1634 Pulse Ox 99 06/03 1633 Temp 98.7 06/03 1214 Resp 18 06/03 1214 Vital Signs Date Temp Pulse Resp B/P B/P Mean Pulse Ox FiO2 06/02-06/03 98.4-98.7 90-98 16-18 103-135/47-66 68.0-86.0 98-100 PATIENT WEIGHT: Weight (lb): 227Weight (oz): Weight (kg): 102.965 Membranes: IntactUterine activity: Monitor: toco Frequency (description): noneCardiac: regular rate and rhythmLungs: unlabored breathingNeuro: Exam: alert, oriented x3, normal gaitAbdomen: gravid, softLower extremities: Calf tenderness: negativeBaby A: Baby A baseline: 140 bpm Baby A variability: moderate 6-25 bpm Baby A accelerations: 15 X 15 Baby A FHR category: category 1 Diagnosis, Assessment Plan Diagnosis, Assessment PlanFree Text A P:31 year old at 28 0/7 weeks GA 1.AGA fetus, category 1 tracing, at risk for pretem delivery: celestone, magnesium sulfate, consult2. Chronic hypertensin, labile BP's, , monitor BP, no sign of severe preeclampsia3. cervical foreshortening, threaten delivery bed rest4. previous c/s x 3, repeat c/s5. trichomonas infection by PCR, not fully treated on 05/02 in [facility], Flagyl6. anemia Rx continue current care, ultrasound at 1940 Addendum 1: 06/03/21 2240 by Patricia Pink MD patient had increased mucous discharge and mild contractions. Utrasound reveals foreshortening of cervix to 1.6 cm with funneling. No evidence of PPROm polyhydramnios AFI27: blood glucose monitoring intiated 9 glucose screene was negative at 25 weeks GA. Fetus transverse lie, funic presentatio. patient remains in hospital for monitoring, risk of PPROM and cord prolapse prohibits outpatient managment. at 2242 RPT #:[id number] OF REPORT PRProgress Ydzp2482-84-00U17:39:00F.IDEC82722508-5210RGUgrqs able for patient hbnyYAWJWFPLDKVJCD1194-67-79V20:42:29 [facility] 2021-06-02 19:44:00 OXxwntebnvt62687594T jqKDE2vrEKpjjZlr5DC2+IUS2a8YT LINyYqpBOSDEEC6QWhFigcm5R7kNz3Hh4T2010-30-05M67:4 4:00 [facility])OB Antepartum Prog NoteREPORT#:[id number] REPORT STATUS: SignedDATE:06/02/21 TIME: 1943 PATIENT: AICHA BARNES UNIT #: [id number]#: [id number] ROOM/BED: [facility]-ADOB: [birth year] AGE: 31 SEX: F ATTEND: Patricia Pink [facility] AUTHOR: Patricia Pink MD * ALL edits or amendments must be made on the electronic/computer document * Subjective SubjectiveComments:no complaints, contractions controlled, fetus reassuring ObjectiveVS:Last Documented: Result Date Time B/P Mean 81.0 06/02 1608 B/P 114/60 06/02 1608 Pulse 96 06/02 1608 Temp 98.4 06/02 0834 Resp 18 06/02 0834 Pulse Ox 99 06/01 2058 Vital Signs Date Temp Pulse Resp B/P B/P Mean Pulse Ox FiO2 06/01-06/02 98.4 87-105 18 93-142/56-63 70.0-91.0 99 PATIENT WEIGHT: Weight (lb): 227Weight (oz): Weight (kg): 102.965 Membranes: IntactUterine activity: Monitor: toco Frequency (description): noneCardiac: regular rate and rhythmLungs: unlabored breathingNeuro: Exam: alert, oriented x3, normal gaitAbdomen: gravid, softLower extremities: Calf tenderness: negativeBaby A: Baby A baseline: 140 bpm Baby A variability: moderate 6-25 bpm Baby A accelerations: 15 X 15 Baby A FHR category: category 1 Diagnosis, Assessment Plan Diagnosis, Assessment PlanFree Text A P:31 year old at 27 6/7 weeks GA 1.AGA fetus, category 1 tracing, at risk for pretem delivery: celestone, magnesium sulfate, consult2. Chronic hypertensin, labile BP's, , monitor BP, no sign of severe preeclampsia3. cervical foreshortening, threaten delivery bed rest4. previous c/s x 3, repeat c/s5. trichomonas infection by PCR, not fully treated on 05/02 in [facility], Flagyl6. anemia Rx continue current care, ultrasound at 1945 RPT #:[id number] OF REPORT PRProgress Dogk0820-64-30I50:44:00F.BBUJ62543721-8086XROxysy able for patient odycYXKAYAZQCCMHIG6660-90-50L57:45:45 [facility] 2021-06-01 20:50:00 ZZcxfuigdxp22940181R IFIVbDuxTj0l7bQeGeHs3C6F+Uq+Q DyaZcwMH7t2Q1IVugwKsAOH6pRWg4Acghi9708-25-20O05:5 0:00 [facility])OB Antepartum Prog NoteREPORT#:[id number] REPORT STATUS: SignedDATE:06/01/21 TIME: 2049 PATIENT: AICHA BARNES UNIT #: [id number]#: [id number] ROOM/BED: [facility]-ADOB: [birth year] AGE: 31 SEX: F ATTEND: Patricia Pink MDADM AUTHOR: Patricia Pink MD * ALL edits or amendments must be made on the electronic/computer document * Subjective SubjectiveComments:no complaints, contractions controled, fetus reassuring ObjectiveVS:Last Documented: Result Date Time B/P Mean 76.0 06/01 1421 B/P 112/57 06/01 1421 Pulse 105 06/01 1421 Pulse Ox 98 06/01 0041 Temp 97.8 05/31 2039 Resp 16 05/31 2039 Vital Signs Date Temp Pulse Resp B/P B/P Mean Pulse Ox FiO2 06/01 90-105 99-115/54-57 74.0-79.0 98 PATIENT WEIGHT: Weight (lb): 227Weight (oz): Weight (kg): 102.965 Membranes: IntactUterine activity: Monitor: toco Frequency (description): noneCardiac: regular rate and rhythmLungs: unlabored breathingNeuro: Exam: alert, oriented x3, normal gaitAbdomen: gravid, softLower extremities: Calf tenderness: negativeBaby A: Baby A baseline: 140 bpm Baby A variability: moderate 6-25 bpm Baby A accelerations: 15 X 15 Baby A FHR category: category 1 Diagnosis, Assessment Plan Diagnosis, Assessment PlanFree Text A P:31 year old at 27 5/7 weeks GA 1.AGA fetus, category 1 tracing, at risk for pretem delivery: celestone, magnesium sulfate, consult2. Chronic hypertensin, labile BP's, , monitor BP, no sign of severe preeclampsia3. cervical foreshortening, threaten delivery bed rest4. previous c/s x 3, repeat c/s5. trichomonas infection by PCR, not fully treated on 05/02 in [facility], Flagyl6. anemia Rx cpntoinue current care, ultrasound tomorrow at 2051 RPT #:[id number] OF REPORT PRProgress Syxk0543-11-11J72:50:00F.EMYL90531293-9132GAZgeqb able for patient rtbjQTIDCRGRPBVSHP1597-46-64E73:51:55 [facility] 2021-05-31 09:39:00 PXpaavtddby69850190+ fthGEH1vOjsYPwckq1JHHf9jKUAFS nngeiWxLQ7HVSVeCmmxQDp1lyKrooxvELw3785-21-16B89:3 9:00 [facility])OB Antepartum Prog NoteREPORT#:[id number] REPORT STATUS: SignedDATE:05/31/21 TIME: 938 PATIENT: AICHA BARNES UNIT #: [id number]#: [id number] [address] [birth year] AGE: 31 SEX: F ATTEND: Patricia Pink [facility] AUTHOR: Nikko Martin MD * ALL edits or amendments must be made on the electronic/computer document * Subjective SubjectivePatient reports: Patient reports: Yes no complaints, Yes normal movement, No abdominal pain, No vaginal bleeding, No leaking fluid, No contractions ObjectiveVS:Last Documented: Result Date Time B/P Mean 78.0 05/31 0844 Pulse Ox 100 05/31 0844 B/P 116/55 05/31 0844 Temp 98.1 05/31 0844 Pulse 87 05/31 0844 Resp 18 05/31 0844 Vital Signs Date Temp Pulse Resp B/P B/P Mean Pulse Ox FiO2 05/30-05/31 98.1-98.5 85-98 18-20 98-124/52-62 72.0-78.0 98-100 PATIENT WEIGHT: Weight (lb): 227Weight (oz): Weight (kg): 102.965 Membranes: IntactAbdomen: gravid, softLower extremities: Calf tenderness: negativeBaby A: Baby A baseline: 140 bpm Baby A variability: moderate 6-25 bpm Baby A accelerations: 15 X 15 Baby A FHR category: category 1 Diagnosis, Assessment Plan Diagnosis, Assessment PlanFree Text A P:31 year old at 27 5/7 weeks GA 1.AGA fetus, category 1 tracing, at risk for pretem delivery: celestone, magnesium sulfate, consult2. Chronic hypertension, labile BP's, , monitor BP, no sign of severe preeclampsia3. cervical foreshortening, threaten delivery bed rest4. previous c/s x 3, repeat c/s5. trichomonas infection by PCR, not fully treated on 05/02 in [facility], Flagyl6. anemia Rx Patient discussed with Dr Gann at 1151 RPT #:[id number] OF REPORT PRProgress Zedg6527-42-97Z77:39:00F.FWDP67673198-0418AFPojao able for patient orafWXANBIWVTMFDNO5424-55-34G84:52:05 [facility] 2021-05-30 12:12:00 APluknlcgcd00232389n 3Ekk4+1VeD8qcwy5HXuT91znBG3No V1Sz2Cms420E1xzw1pQBorPWn2/vuscRoR9132-17-83Y07:1 2:00 [facility])OB Antepartum Prog NoteREPORT#:[id number] REPORT STATUS: SignedDATE:05/30/21 TIME: 1212 PATIENT: AICHA BARNES UNIT #: [id number]#: [id number] [address] [birth year] AGE: 31 SEX: F ATTEND: Patricia Pink [facility] AUTHOR: Chery Pimentel DO R2 * ALL edits or amendments must be made on the electronic/computer document * Subjective SubjectiveCurrent EGA: Current EGA(wks): 28 Current EGA(days): 5Patient reports: Patient reports: Yes: normal movement. No: complaints, abdominal pain, vaginal bleeding, leaking fluid, contractions. Review of SystemsConstitutional:Denies: chills, fatigue, fever. GI:Denies: abdominal pain, nausea, vomiting. :Denies: dysuria, vaginal bleeding, vaginal discharge. Neuro:Denies: headache, vision change. ObjectiveVS:Last Documented: Result Date Time B/P Mean 87.0 05/30 1134 Pulse Ox 98 05/30 1134 B/P 130/62 05/30 1134 Temp 37.1 05/30 1134 Pulse 92 05/30 1134 Resp 16 05/30 1134 Vital SignsDate Temp Pulse Resp B/P B/P Mean Pulse Ox TvJ869/15-05/30 36.9-37.1 85-101 16-18 100-130/52-67 72.0-87.0 98-100 PATIENT WEIGHT: Weight (lb): 227Weight (oz): Weight (kg): 102.965 Membranes: IntactUterine activity: Monitor: toco Frequency (description): noneCardiac: regular rate and rhythmLungs: unlabored breathingNeuro: Exam: alert, oriented x3, normal gaitAbdomen: gravid, softLower extremities: Calf tenderness: negativeBaby A: Baby A baseline: 140 bpm Baby A variability: moderate 6-25 bpm Baby A accelerations: 15 X 15 Baby A FHR category: category 1 Diagnosis, Assessment Plan Diagnosis, Assessment PlanFree text A P:31 year old at 28 5/7 weeks GA 1.AGA fetus, category 1 tracing, at risk for pretem delivery: celestone, magnesium sulfate, consult2. Chronic hypertension, labile BP's, , monitor BP, no sign of severe preeclampsia3. cervical foreshortening, threaten delivery bed rest4. previous c/s x 3, repeat c/s5. trichomonas infection by PCR, not fully treated on 05/02 in [facility]6. anemia Rx Patient discussed with Dr Hernandezment: reassuring status, status post betamethasone, status post magnesiumPlan: continue current managmnt at 1228 RPT #:[id number] OF REPORT PRProgress Rwgj7885-41-03S79:12:00F.IUTH82264838-4516BQHrgjn able for patient zdhzEAUVFKFGHBBKXJ2962-69-24H71:28:27 [facility] 2021-05-30 12:12:00 BAgjamhgngl78599386b HPhT07LmvzlTEnlMd03DxsoQtdVgY HlCe3CxFrKNPimNJF4Lgor0ztz2XU/N0bX0867-21-26V95:1 2:00 [facility])OB Antepartum Prog NoteREPORT#:[id number] REPORT STATUS: SignedDATE:05/30/21 TIME: 1212 PATIENT: AICHA BARNES UNIT #: [id number]#: [id number] [address] [birth year] AGE: 31 SEX: F ATTEND: Patricia Pink [facility] AUTHOR: Chery Pimentel DO R2 * ALL edits or amendments must be made on the electronic/computer document * Chery Pimentel 05/30/21 1212:Subjective SubjectiveCurrent EGA: Current EGA(wks): 28 Current EGA(days): 5Patient reports: Patient reports: Yes: normal movement. No: complaints, abdominal pain, vaginal bleeding, leaking fluid, contractions. Review of SystemsConstitutional:Denies: chills, fatigue, fever. GI:Denies: abdominal pain, nausea, vomiting. :Denies: dysuria, vaginal bleeding, vaginal discharge. Neuro:Denies: headache, vision change. ObjectiveVS:Last Documented: Result Date Time B/P Mean 87.0 05/30 1134 Pulse Ox 98 05/30 1134 B/P 130/62 05/30 1134 Temp 37.1 05/30 1134 Pulse 92 05/30 1134 Resp 16 05/30 1134 Vital SignsDate Temp Pulse Resp B/P B/P Mean Pulse Ox EnM881/15-05/30 36.9-37.1 85-101 16-18 100-130/52-67 72.0-87.0 98-100 PATIENT WEIGHT: Weight (lb): 227Weight (oz): Weight (kg): 102.965 Membranes: IntactUterine activity: Monitor: toco Frequency (description): noneCardiac: regular rate and rhythmLungs: unlabored breathingNeuro: Exam: alert, oriented x3, normal gaitAbdomen: gravid, softLower extremities: Calf tenderness: negativeBaby A: Baby A baseline: 140 bpm Baby A variability: moderate 6-25 bpm Baby A accelerations: 15 X 15 Baby A FHR category: category 1 Diagnosis, Assessment Plan Diagnosis, Assessment PlanFree text A P:31 year old at 28 5/7 weeks GA 1.AGA fetus, category 1 tracing, at risk for pretem delivery: celestone, magnesium sulfate, consult2. Chronic hypertension, labile BP's, , monitor BP, no sign of severe preeclampsia3. cervical foreshortening, threaten delivery bed rest4. previous c/s x 3, repeat c/s5. trichomonas infection by PCR, not fully treated on 05/02 in [facility], Flagyl6. anemia Rx Patient discussed with Dr Hernandezment: reassuring status, status post betamethasone, status post magnesiumPlan: continue current managmnt Nikko Martin. 05/30/21 1323:Attestations Physician AttestationAgree w/findings plan:I was present during the sunshine or critical portions of the service provides by theresident. I examined the patient and discussed the patient's management with theresident. I reviewed the residents note and agree with the documented findings, assessment and plan of care at 1228 at 1323 RPT #:[id number] OF REPORT PRProgress Oibs6430-97-55I88:12:00F.RKCN45137472-1962OEIqzhp able for patient izfcOUKLWJEBHOILYI4934-15-67I81:23:30 [facility] 2021-05-29 19:52:00 DTirqlwotym31411366f inxCxSFjkOHKetTlFaWxqhZivS4RY RlirIHpwIhP/nL7gT4QLFSIzkPWkZ9b4Jt1874-47-32T27:5 2:00 [facility])OB Antepartum Prog NoteREPORT#:[id number] REPORT STATUS: SignedDATE:05/29/21 TIME: 1952 PATIENT: AICHA BARNES UNIT #: [id number]#: [id number] [address] [birth year] AGE: 31 SEX: F ATTEND: Patricia Pink [facility] AUTHOR: Lorraine Christine MD * ALL edits or amendments must be made on the electronic/computer document * Subjective SubjectivePatient reports: Patient reports: Yes normal movement, No no complaints, No abdominal pain, No vaginal bleeding, No leaking fluid, No contractionsComments:seen around 2:30 pm ObjectiveVS:Last Documented: Result Date Time B/P Mean 84.0 05/29 1522 B/P 118/67 05/29 1522 Pulse 99 05/29 1522 Temp 98.2 05/29 0800 Resp 16 05/29 0800 Pulse Ox 100 05/28 2022 Vital Signs Date Temp Pulse Resp B/P B/P Mean Pulse Ox FiO2 05/28-05/29 98.2 89-101 16-18 103-122/57-67 77.0-84.0 100 PATIENT WEIGHT: Weight (lb): 227Weight (oz): Weight (kg): 102.965 HEENT: normocephalic w/o injuryNeuro: Exam: alert, oriented x3, normal gaitAbdomen: gravid, softLower extremities: Calf tenderness: negativeBaby A: Baby A baseline: 150 bpm Baby A variability: moderate 6-25 bpm Baby A accelerations: 15 X 15 Diagnosis, Assessment Plan Diagnosis, Assessment PlanFree Text A P:31 year old at 27 3/7 weeks GA 1.AGA fetus, category 1 tracing, at risk for pretem delivery: celestone, magnesium sulfate, consult2. Chronic hypertensin, labile BP's, , monitor BP, no sign of severe preeclampsia3. cervical foreshortening, threaten delivery bed rest4. previous c/s x 3, repeat c/s5. trichomonas infection by PCR, not fully treated on 05/02 in [facility], Flagyl6. anemia Rx at 1953 RPT #:[id number] OF REPORT PRProgress Twfc6835-69-76Y04:52:00F.LJPE22166475-5120TCVycuj able for patient bnzoRPHLIOPBSADEZG4001-78-61T22:54:11 [facility] 2021-05-28 13:55:00 FXshmstvozc484492417 sScm5GacnebR/a5kTBZbVloZ2GNkB AB7swOEGr4TwgyzFmJ4TSKaa5fRARnJ3RK7436-07-54Q71:5 5:00 [facility]OB Antepartum Prog NoteREPORT#:[id number] REPORT STATUS: SignedDATE:05/28/21 TIME: 1355 PATIENT: AICHA BARNES UNIT #: [id number]#: [id number] [address] [birth year] AGE: 31 SEX: F ATTEND: Patricia Pink [facility] AUTHOR: Shoaib Gann MD * ALL edits or amendments must be made on the electronic/computer document * Subjective SubjectivePatient reports: Patient reports: Yes normal movement, No abdominal pain, No vaginal bleeding, No leakingfluid, No contractions ObjectiveMembranes: IntactUterine activity: Monitor: toco Frequency (description): noneHEENT: normocephalic w/o injuryCardiac: regular rate and rhythmLungs: unlabored breathingNeuro: Exam: alert, oriented x3, normal gaitAbdomen: gravid, softLower extremities: Calf tenderness: negativeBaby A: Baby A baseline: 150 bpm Baby A variability: moderate 6-25 bpm Baby A accelerations: 15 X 15 Diagnosis, Assessment Plan Diagnosis, Assessment PlanFree Text A P:31 year old at 27 2/7 weeks GA 1.AGA fetus, category 1 tracing, at risk for pretem delivery: celestone, magnesium sulfate, consult2. Chronic hypertensin, labile BP's, , monitor BP, no sign of severe preeclampsia3. cervical foreshortening, threaten delivery bed rest4. previous c/s x 3, repeat c/s5. trichomonas infection by PCR, not fully treated on 7/19 in [place] [facility], Flagyl6. anemia Rx at 1356 RPT #:[id number] OF REPORT PRProgress Qhvf0716-46-39G81:55:00F.AUJO60668133-7712LFWgiyt able for patient hhtxIQLZXKQXHNLCIF6855-51-60A25:57:15 [facility] 2021-05-27 14:57:00 WYxxuzkzydw60843111c j01VAUuNeFb1wzVVK+FspBzmfawGZ mqpzou6JzICAGn7EpRYTQWiUoG0ON8si2Y0987-83-57U15:5 7:00 [facility]OB Antepartum Prog NoteREPORT#:[id number] REPORT STATUS: SignedDATE:05/27/21 TIME: 1456 PATIENT: AICHA BARNES UNIT #: [id number]#: [id number] [address] [birth year] AGE: 31 SEX: F ATTEND: Patricia Pink [facility] AUTHOR: Chery Pimentel DO R2 * ALL edits or amendments must be made on the electronic/computer document * Chery Pimentel 05/27/21 1457:Subjective SubjectiveCurrent EGA: Current EGA(wks): 27 Current EGA(days): 0Patient reports: Patient reports: Yes: normal movement. No: complaints, abdominal pain, vaginal bleeding, leaking fluid, contractions. Review of SystemsConstitutional:Denies: chills, fatigue, fever. Respiratory:Denies: SOB, wheezing. Cardiovascular:Denies: chest pain, palpitations. GI:Denies: abdominal pain, nausea, vomiting. :Denies: dysuria, vaginal bleeding, vaginal discharge. Neuro:Denies: headache, vision change. ObjectiveVS:Last Documented: Result Date Time B/P Mean 96.0 05/27 1330 B/P 142/78 05/27 1330 Pulse 103 05/27 1330 Pulse Ox 99 08/13 1329 Temp 37.2 05/27 0820 Resp 19 05/27 0820 Vital Signs Date Temp Pulse Resp B/P B/P Mean Pulse Ox FiO2 05/26-05/27 36.6-37.2 80-103 18- 94-142/57-78 67.0-96.0 99-100 PATIENT WEIGHT: Weight (lb): 227Weight (oz): Weight (kg): 102.965 Membranes: IntactUterine activity: Monitor: toco Frequency (description): noneHEENT: normocephalic w/o injuryLungs: unlabored breathingNeuro: Exam: alert, oriented x3, normal gaitAbdomen: gravid, softLower extremities: Calf tenderness: negativeBaby A: Baby A baseline: 150 bpm Baby A variability: moderate 6-25 bpm Baby A accelerations: 15 X 15 Diagnosis, Assessment Plan Diagnosis, Assessment PlanFree text A P:31 year old at 27 0/7 weeks GA 1.AGA fetus, category 1 tracing, at risk for pretem delivery: celestone, magnesium sulfate, consult2. Chronic hypertension, labile BP's, , monitor BP, no sign of severe preeclampsia3. cervical foreshortening, threaten delivery bed rest4. previous c/s x 3, repeat c/s5. trichomonas infection by PCR, not fully treated on 05/02 in [facility], [facility]6. anemia Rx Patient discussed with Dr Moellersessment: reassuring status, status post betamethasone, status post magnesiumPlan: continue current managmnt Lorraine Christine 05/27/21 1736:Attestations Physician AttestationAgree w/findings plan:Agree with the findings and plan as documented by DR PIMENTEL at 1503 at 1752 RPT #:[id number] OF REPORT PRProgress Dycb2277-61-63T07:57:00F.TJXV58885805-2493FAGvsgm able for patient buiwGETFMYYTCREKNU6052-13-02X47:52:12 [facility] 2021-05-27 14:57:00 CEtrnszituk54637740i +1NEAhGoWMIDZAlLxeML50NA0E1xa apYA5LGK3U4s0bTxpO+tBFuPypvB7u+DpC3564-77-96Q83:5 7:00 [facility] ([facility])OB Antepartum Prog NoteREPORT#:[id number] REPORT STATUS: SignedDATE:05/27/21 TIME: 1456 PATIENT: AICHA BARNES UNIT #: [id number]#: [id number] [address] [birth year] AGE: 31 SEX: F ATTEND: Patricia Pink MDA AUTHOR: Chery Pimentel DO R2 * ALL edits or amendments must be made on the electronic/computer document * Subjective SubjectiveCurrent EGA: Current EGA(wks): 27 Current EGA(days): 0Patient reports: Patient reports: Yes: normal movement. No: complaints, abdominal pain, vaginal bleeding, leaking fluid, contractions. Review of SystemsConstitutional:Denies: chills, fatigue, fever. Respiratory:Denies: SOB, wheezing. Cardiovascular:Denies: chest pain, palpitations. GI:Denies: abdominal pain, nausea, vomiting. :Denies: dysuria, vaginal bleeding, vaginal discharge. Neuro:Denies: headache, vision change. ObjectiveVS:Last Documented: Result Date Time B/P Mean 96.0 05/27 1330 B/P 142/78 05/27 1330 Pulse 103 05/27 1330 Pulse Ox 99 05/27 1329 Temp 37.2 05/27 0820 Resp 19 05/27 0820 Vital Signs Date Temp Pulse Resp B/P B/P Mean Pulse Ox FiO2 05/26-05/27 36.6-37.2 80-103 18- 94-142/57-78 67.0-96.0 99-100 PATIENT WEIGHT: Weight (lb): 227Weight (oz): Weight (kg): 102.965 Membranes: IntactUterine activity: Monitor: toco Frequency (description): noneHEENT: normocephalic w/o injuryLungs: unlabored breathingNeuro: Exam: alert, oriented x3, normal gaitAbdomen: gravid, softLower extremities: Calf tenderness: negativeBaby A: Baby A baseline: 150 bpm Baby A variability: moderate 6-25 bpm Baby A accelerations: 15 X 15 Diagnosis, Assessment Plan Diagnosis, Assessment PlanFree text A P:31 year old at 27 0/7 weeks GA 1.AGA fetus, category 1 tracing, at risk for pretem delivery: celestone, magnesium sulfate, consult2. Chronic hypertension, labile BP's, , monitor BP, no sign of severe preeclampsia3. cervical foreshortening, threaten delivery bed rest4. previous c/s x 3, repeat c/s5. trichomonas infection by PCR, not fully treated on 05/02 in [facility], Flagyl6. anemia Rx Patient discussed with Dr Fisherssment: reassuring status, status post betamethasone, status post magnesiumPlan: continue current managmnt at 1503 RPT #:[id number] OF REPORT PRProgress Ibto4348-54-63W96:57:00F.HRJX71756323-4035LZIfvxt able for patient cnrzHTBZAXTATAIEMA1440-70-99C40:03:35 [facility] 2021-05-27 14:57:00 ZNbcmfqjtde25221850/ jJ503J1RNw3lXE5xVsQcv2NBGpSC8 76w+0uc8fL2+nWvfZ/CFk2QqLBz+Ysx73T6892-69-83C83:5 7:00 [facility])OB Antepartum Prog NoteREPORT#:[id number] REPORT STATUS: SignedDATE:05/27/21 TIME: 1457 PATIENT: AICHA BARNES UNIT #: [id number]#: [id number] [address] [birth year] AGE: 31 SEX: F ATTEND: Patricia Pink AUTHOR: Pimentel,Chery Ginger DO R2 * ALL edits or amendments must be made on the electronic/computer document * Chery Pimentela 05/27/21 1457:Subjective SubjectiveCurrent EGA: Current EGA(wks): 27 Current EGA(days): 0Patient reports: Patient reports: Yes: normal movement. No: complaints, abdominal pain, vaginal bleeding, leaking fluid, contractions. Review of SystemsConstitutional:Denies: chills, fatigue, fever. Respiratory:Denies: SOB, wheezing. Cardiovascular:Denies: chest pain, palpitations. GI:Denies: abdominal pain, nausea, vomiting. :Denies: dysuria, vaginal bleeding, vaginal discharge. Neuro:Denies: headache, vision change. ObjectiveVS:Last Documented: Result Date Time B/P Mean 96.0 05/27 1330 B/P 142/78 05/27 1330 Pulse 103 05/27 1330 Pulse Ox 99 05/27 1329 Temp 37.2 05/27 0820 Resp 19 05/27 0820 Vital Signs Date Temp Pulse Resp B/P B/P Mean Pulse Ox FiO2 /-05/27 36.6-37.2 80-103 18-19 94-142/57-78 67.0-96.0 99-100 PATIENT WEIGHT: Weight (lb): 227Weight (oz): Weight (kg): 102.965 Membranes: IntactUterine activity: Monitor: toco Frequency (description): noneHEENT: normocephalic w/o injuryLungs: unlabored breathingNeuro: Exam: alert, oriented x3, normal gaitAbdomen: gravid, softLower extremities: Calf tenderness: negativeBaby A: Baby A baseline: 150 bpm Baby A variability: moderate 6-25 bpm Baby A accelerations: 15 X 15 Diagnosis, Assessment Plan Diagnosis, Assessment PlanFree text A P:31 year old at 27 0/7 weeks GA 1.AGA fetus, category 1 tracing, at risk for pretem delivery: celestone, magnesium sulfate, consult2. Chronic hypertension, labile BP's, , monitor BP, no sign of severe preeclampsia3. cervical foreshortening, threaten delivery bed rest4. previous c/s x 3, repeat c/s5. trichomonas infection by PCR, not fully treated on 05/02 in [facility], Flagyl6. anemia Rx Patient discussed with Dr Fisherssment: reassuring status, status post betamethasone, status post magnesiumPlan: continue current managmnt Lorraine Christine 05/27/21 1736:Attestations Physician AttestationAgree w/findings plan:Agree with the findings and plan as documented by DR PIMENTEL at 1503 RPT #:[id number] OF REPORT PRProgress Wqzk6787-61-69D18:57:00F.[id number] able for patient eodqYKPUJOIFGBOUBE2389-13-34N84:36:59 [facility] 2021-05-26 06:44:00 COatltaimnd75945465Z 2elqxQDaq8JvCKSrHQ9m9mT0uXb2e YI1YWbWWEEMwuZKEFco1fmEfQcdTDhLtJY8790-68-34D92:4 4:00 [facility])OB Antepartum Prog NoteREPORT#:[id number] REPORT STATUS: SignedDATE:05/26/21 TIME: 0644 PATIENT: AICHA BARNES UNIT #: [id number]#: [id number] [address] [birth year] AGE: 31 SEX: F ATTEND: Patricia Pink MDA AUTHOR: Chery Pimentel DO R2 * ALL edits or amendments must be made on the electronic/computer document * Subjective SubjectiveCurrent EGA: Current EGA(wks): 26 Current EGA(days): 6Patient reports: Patient reports: Yes: normal movement. No: complaints, abdominal pain, vaginal bleeding, leaking fluid, contractions. Review of SystemsConstitutional:Denies: chills, fatigue, fever. GI:Denies: nausea, vomiting. :Denies: vaginal bleeding, vaginal discharge. Neuro:Denies: headache, vision change. ObjectiveVS:Last Documented: Result Date Time B/P Mean 75.0 05/26 808 Pulse Ox 99 05/26 808 B/P 106/57 05/26 08 Temp 36.9 05/26 08 Pulse 77 05/26 08 Resp 18 05/25 2016 Vital Signs Date Temp Pulse Resp B/P B/P Mean Pulse Ox FiO2 05/25-05/26 36.9-37.2 77-132 18 100-109/51-58 73.0-79.0 81-99 PATIENT WEIGHT: Weight (lb): 227Weight (oz): Weight (kg): 102.965 Membranes: IntactUterine activity: Monitor: toco Frequency (description): noneLungs: clear to auscultationNeuro: Exam: alert, oriented x3, normal gaitAbdomen: gravid, softLower extremities: Calf tenderness: negativeBaby A: Baby A baseline: 150 bpm Baby A variability: moderate 6-25 bpm Diagnosis, Assessment Plan Diagnosis, Assessment PlanFree text A P:31 year old at 26 6/7 weeks GA 1.AGA fetus, category 1 tracing, at risk for pretem delivery: celestone, magnesium sulfate, consult2. Chronic hypertensin, labile BP's, , monitor BP, no sign of severe preeclampsia3. cervical foreshortening, threaten delivery bed rest4. previous c/s x 3, repeat c/s5. trichomonas infection by PCR, not fully treated on 05/02 in [facility], [facility]6. anemia Rx Patient discussed with Dr Magallonment: cervical shorteningPlan: continue current managmnt at 0946 RPT #:[id number] OF REPORT PRProgress Dwcu1022-03-04K27:44:00F.UQPF98111455-9490ZOIsjda able for patient zjjeWDEWBVTPZJAKMR8474-30-45Z35:46:24 [facility] 2021-05-26 06:44:00 OCxinnbthjk46687091x 51djL9E4OVZQsEBwc3jXITcplDhag KxmgZZgCZz8krq4JNHhO4+YYwR6foXAMyt3194-12-70R34:4 4:00 [facility] ([facility])OB Antepartum Prog NoteREPORT#:[id number] REPORT STATUS: SignedDATE:05/26/21 TIME: 06 PATIENT: AICHA BARNES UNIT #: [id number]#: [id number] [address] [birth year] AGE: 31 SEX: F ATTEND: Patricia Pink [facility] AUTHOR: Chery Pimentel DO R2 * ALL edits or amendments must be made on the electronic/computer document * Chery Pimentel 05/26/21 0644:Subjective SubjectiveCurrent EGA: Current EGA(wks): 26 Current EGA(days): 6Patient reports: Patient reports: Yes: normal movement. No: complaints, abdominal pain, vaginal bleeding, leaking fluid, contractions. Review of SystemsConstitutional:Denies: chills, fatigue, fever. GI:Denies: nausea, vomiting. :Denies: vaginal bleeding, vaginal discharge. Neuro:Denies: headache, vision change. ObjectiveVS:Last Documented: Result Date Time B/P Mean 75.0 05/26 0808 Pulse Ox 99 05/26 0808 B/P 106/57 05/26 0808 Temp 36.9 05/26 0808 Pulse 77 / 0808 Resp 18 05/25 2016 Vital Signs Date Temp Pulse Resp B/P B/P Mean Pulse Ox FiO2 05/25-05/26 36.9-37.2 77-132 18 100-109/51-58 73.0-79.0 81-99 PATIENT WEIGHT: Weight (lb): 227Weight (oz): Weight (kg): 102.965 Membranes: IntactUterine activity: Monitor: toco Frequency (description): noneLungs: clear to auscultationNeuro: Exam: alert, oriented x3, normal gaitAbdomen: gravid, softLower extremities: Calf tenderness: negativeBaby A: Baby A baseline: 150 bpm Baby A variability: moderate 6-25 bpm Diagnosis, Assessment Plan Diagnosis, Assessment PlanFree text A P:31 year old at 26 6/7 weeks GA 1.AGA fetus, category 1 tracing, at risk for pretem delivery: celestone, magnesium sulfate, consult2. Chronic hypertensin, labile BP's, , monitor BP, no sign of severe preeclampsia3. cervical foreshortening, threaten delivery bed rest4. previous c/s x 3, repeat c/s5. trichomonas infection by PCR, not fully treated on 05/02 in [facility], Flagyl6. anemia Rx Patient discussed with Dr Driscoll: cervical shorteningPlan: continue current managmnt Lorraine Christine 05/27/21 1749:Attestations Physician AttestationAgree w/findings plan:Agree with the findings and plan as documented by DR PIMENTEL at 0946 RPT #:[id number] OF REPORT PRProgress Cqoj0158-51-95Y13:44:00F.DASA80272072-1213AGCbnyh able for patient myvoMMRALIPQKXJNWF0086-63-80V78:50:20 [facility] 2021-05-26 06:44:00 YWexhavfiht49815155b lfvKBkUcuNl4+DKn5Kba0sY3EicoE yDP9s/ZME1g8jnENsTSYdJbbNK4UvlHkIt8741-94-06Y37:4 4:00 [facility] ([facility])OB Antepartum Prog NoteREPORT#:[id number] REPORT STATUS: SignedDATE:05/26/21 TIME: 643 PATIENT: AICHA BARNES UNIT #: [id number]#: [id number] [address] [birth year] AGE: 31 SEX: F ATTEND: Patricia Pink AUTHOR: Chery Pimentel DO R2 * ALL edits or amendments must be made on the electronic/computer document * Chery Pimentel 05/26/21 0644:Subjective SubjectiveCurrent EGA: Current EGA(wks): 26 Current EGA(days): 6Patient reports: Patient reports: Yes: normal movement. No: complaints, abdominal pain, vaginal bleeding, leaking fluid, contractions. Review of SystemsConstitutional:Denies: chills, fatigue, fever. GI:Denies: nausea, vomiting. :Denies: vaginal bleeding, vaginal discharge. Neuro:Denies: headache, vision change. ObjectiveVS:Last Documented: Result Date Time B/P Mean 75.0 05/26 0808 Pulse Ox 99 05/26 0808 B/P 106/57 05/26 0808 Temp 36.9 05/26 0808 Pulse 77 05/26 0808 Resp 18 05/25 2016 Vital Signs Date Temp Pulse Resp B/P B/P Mean Pulse Ox FiO2 05/25-05/26 36.9-37.2 77-132 18 100-109/51-58 73.0-79.0 81-99 PATIENT WEIGHT: Weight (lb): 227Weight (oz): Weight (kg): 102.965 Membranes: IntactUterine activity: Monitor: toco Frequency (description): noneLungs: clear to auscultationNeuro: Exam: alert, oriented x3, normal gaitAbdomen: gravid, softLower extremities: Calf tenderness: negativeBaby A: Baby A baseline: 150 bpm Baby A variability: moderate 6-25 bpm Diagnosis, Assessment Plan Diagnosis, Assessment PlanFree text A P:31 year old at 26 6/7 weeks GA 1.AGA fetus, category 1 tracing, at risk for pretem delivery: celestone, magnesium sulfate, consult2. Chronic hypertensin, labile BP's, , monitor BP, no sign of severe preeclampsia3. cervical foreshortening, threaten delivery bed rest4. previous c/s x 3, repeat c/s5. trichomonas infection by PCR, not fully treated on 05/02 in [facility], [facility]6. anemia Rx Patient discussed with Dr Driscoll: cervical shorteningPlan: continue current managmnt Lorraine Christine 05/27/21 1749:Attestations Physician AttestationAgree w/findings plan:Agree with the findings and plan as documented by DR PIMENTEL at 0946 at 1751 RPT #:[id number] OF REPORT PRProgress Xvee4467-86-35N23:44:00F.MHLK26528047-3873JPFicht able for patient pgudVMBXVLAGCTEZSB3123-85-38O69:52:00 [facility] 2021-05-25 16:01:00 WYcoyyckjwj11271546y bq5tweJbM1/y+V6cExFj4ZRRFbLgc DRGbfoVG/t5/eDAAixr0ZJcz5U6p+6clYF6779-82-22P74:0 1:00 [facility] NoteREPORT#:[id number] REPORT STATUS: SignedDATE:05/25/21 TIME: 1601 PATIENT: AICHA BARNES UNIT #: [id number]#: [id number] [address] [birth year] AGE: 31 SEX: F ATTEND: Patricia Pink MDA AUTHOR: Mino Soto MD * ALL edits or amendments must be made on the electronic/computer document * Clinical NoteNote:Neonatology Consultation Asked to see this 31 year old at 26 4/7 weeks GA 1.AGA fetus, category 1 tracing, at risk for pretem delivery: celestone, magnesium sulfate, consult2. Chronic hypertensin, labile BP's, , monitor BP, no sign of severe preeclampsia3. cervical foreshortening, threaten delivery bed rest4. previous c/s x 3, repeat c/s5. trichomonas infection by PCR, not fully treated on 05/02 in [facility], Flagyl6. anemia Rx We discussed the presence of the resuscitation team at delivery and thevarious complications associated with extreme prematurity at 26 weeks. We discussed in the details the major complications of prematurity and the need fora prolonged hospital course. The major complications of prematurity and treatments for a 26 week discussed with the family includes but not limited to: -Respiratory distress due to immature lungs. Infants will require some form of respiratory support. Interventions offered are supplemental oxygen, intubation, invasive and non-invasive ventilation, surfactant administration. Some infants require prolonged mechanical ventilation due to chronic lung disease. -Intraventricular Hemorrhage/PVL. Cranial US performed during stay to assess forintracranial abnormalities such as IVH/PVL. Significance of severe IVH and PVL and benefit of delayed cord clamping discussed. -Sepsis. Infant will require sepsis screens, blood draws and IV antibiotic therapy during hospital stay. - Anemia. Most infants require transfusion of blood/blood products. Consent willbe obtained after delivery. Direct donor option also discussed -PDA. Clinical significance of PDA shared with family and the potential need for an ECHO and treatment. -ROP. Discussed the reason and process of retinal screenings. - Nutrition- need for parenteral nutrition and gavage feedings. Monitor for feeding intolerance and NEC. Placement of UAC/UVC/PICC line. Discussed importance of breastmilk, donor milk supplementation and requested a consult. The risk for adverse neuro-developmental outcome and survival rates were discussed. Questions were answered. Our group appreciates the opportunity to participate in the care of this family and baby. Please don't hesitate to call us back for more discussions, or even at a later gestation should this persist so we can revisit this consult. Thank you. Total time for this encounter was 40 minutes. Counseling and/or coordination ofcare dominated more than fifty percent of the time at 1618 RPT #:[id number] OF REPORT CLClinical snwd5512-25-77T64:01:00F.HETA22438660-5465UGUfhaj able for patient qlzmUUQHQVFVWBRXTR3164-78-91R72:19:08 [facility] 2021-05-25 09:13:00 VUgldgbvlmw87313062y y30eQpSaynnprkrCeiKjq1IrOK9mN zGNZH2YeMIFlqz74mtxavG6eh1l7kCnI3Z0267-33-61G98:1 3:00 [facility] ([facility])OB Antepartum Prog NoteREPORT#:[id number] REPORT STATUS: SignedDATE:05/25/21 TIME: 912 PATIENT: AICHA BARNES UNIT #: [id number]#: [id number] [address] [birth year] AGE: 31 SEX: F ATTEND: Patricia Pink [facility] AUTHOR: Chery Pimentel DO R2 * ALL edits or amendments must be made on the electronic/computer document * Subjective SubjectiveCurrent EGA: Current EGA(wks): 26 Current EGA(days): 5Patient reports: Patient reports: No: complaints, abdominal pain, vaginal bleeding, leaking fluid, contractions. Review of SystemsConstitutional:Denies: chills, fatigue, fever. GI:Denies: nausea, vomiting. :Denies: vaginal bleeding, vaginal discharge. Neuro:Denies: headache, vision change. ObjectiveVS:Last Documented: Result Date Time Pulse Ox 81 05/25 1045 Pulse 132 05/25 1045 B/P Mean 76.0 05/25 0915 B/P 109/58 05/25 0915 Temp 36.7 05/25 0915 Resp 18 05/25 0915 Vital Signs Date Temp Pulse Resp B/P B/P Mean Pulse Ox FiO2 05/24-05/25 36.7-37.1 83-132 18 93-119/52-61 67.0-83.0 81-100 PATIENT WEIGHT: Weight (lb): 227Weight (oz): Weight (kg): 102.965 Membranes: IntactUterine activity: Monitor: toco Frequency (description): noneLungs: clear to auscultationNeuro: Exam: alert, oriented x3, normal gaitAbdomen: gravid, softLower extremities: Calf tenderness: negativeBaby A: Baby A baseline: 145 bpm Baby A variability: moderate 6-25 bpmFindings/data:Laboratory Tests: 05/24 1724 Chemistry Creatinine (0.5 - 1.0 mg/dL) 0.9 Urines Ur Random Creatinine (mg/dL) 52.9 U Random Total Protein (mg/dL) 10.1 Urine Total Volume (ML) 2590 Creatinine Clearance (70 - 120 ml/min) 104 Ur Total Protein 24 Hr (20 - 150 mg/24HR) 262 *H Diagnosis, Assessment Plan Diagnosis, Assessment PlanFree text A P:31 year old at 26 5/7 weeks GA 1.AGA fetus, category 1 tracing, at risk for pretem delivery: celestone, magnesium sulfate, consult2. Chronic hypertensin, labile BP's, , monitor BP, no sign of severe preeclampsia3. cervical foreshortening, threaten delivery bed rest4. previous c/s x 3, repeat c/s5. trichomonas infection by PCR, not fully treated on 05/02 in [facility], Flagyl6. anemia Rx Patient discussed with Dr Bhatment: cervical shorteningPlan: continue current managmnt at 1115 RPT #:[id number] OF REPORT PRProgress Duuo3743-56-60C53:13:00F.UOBZ72240493-9346BIJdyom able for patient pfrcWMXVWRBYNZHEHP2456-62-35W17:15:55 [facility] 2021-05-25 09:13:00 [id number] oRHAapIuh5+YzF83NZaYs261wC5eT /ISPwMnzznvQM6N9uL116GfVepmR8hY9Sy1071-39-28K48:1 3:00 [facility])OB Antepartum Prog NoteREPORT#:[id number] REPORT STATUS: SignedDATE:05/25/21 TIME: 912 PATIENT: AICHA BARNES UNIT #: [id number]#: [id number] [address] [birth year] AGE: 31 SEX: F ATTEND: Patricia Pink AUTHOR: Chery Pimentel * ALL edits or amendments must be made on the electronic/computer document * Chery Pimentel 05/25/21 0913:Subjective SubjectiveCurrent EGA: Current EGA(wks): 26 Current EGA(days): 5Patient reports: Patient reports: No: complaints, abdominal pain, vaginal bleeding, leaking fluid, contractions. Review of SystemsConstitutional:Denies: chills, fatigue, fever. GI:Denies: nausea, vomiting. :Denies: vaginal bleeding, vaginal discharge. Neuro:Denies: headache, vision change. ObjectiveVS:Last Documented: Result Date Time Pulse Ox 81 05/25 1045 Pulse 132 05/25 1045 B/P Mean 76.0 05/25 0915 B/P 109/58 05/25 0915 Temp 36.7 05/25 0915 Resp 18 05/25 0915 Vital Signs Date Temp Pulse Resp B/P B/P Mean Pulse Ox FiO2 05/24-05/25 36.7-37.1 83-132 18 93-119/52-61 67.0-83.0 81-100 PATIENT WEIGHT: Weight (lb): 227Weight (oz): Weight (kg): 102.965 Membranes: IntactUterine activity: Monitor: toco Frequency (description): noneLungs: clear to auscultationNeuro: Exam: alert, oriented x3, normal gaitAbdomen: gravid, softLower extremities: Calf tenderness: negativeBaby A: Baby A baseline: 145 bpm Baby A variability: moderate 6-25 bpmFindings/data:Laboratory Tests: 05/24 1724 Chemistry Creatinine (0.5 - 1.0 mg/dL) 0.9 Urines Ur Random Creatinine (mg/dL) 52.9 U Random Total Protein (mg/dL) 10.1 Urine Total Volume (ML) 2590 Creatinine Clearance (70 - 120 ml/min) 104 Ur Total Protein 24 Hr (20 - 150 mg/24HR) 262 *H Diagnosis, Assessment Plan Diagnosis, Assessment PlanFree text A P:31 year old at 26 5/7 weeks GA 1.AGA fetus, category 1 tracing, at risk for pretem delivery: celestone, magnesium sulfate, consult2. Chronic hypertensin, labile BP's, , monitor BP, no sign of severe preeclampsia3. cervical foreshortening, threaten delivery bed rest4. previous c/s x 3, repeat c/s5. trichomonas infection by PCR, not fully treated on 05/02 in [facility], Flagyl6. anemia Rx Patient discussed with Dr Bhatment: cervical shorteningPlan: continue current managmnt Nikko Martin 05/25/21 1538:Attestations Physician AttestationAgree w/findings plan:I was present during the sunshine or critical portions of the service provides by theresident. I examined the patient and discussed the patient's management with theresident. I reviewed the residents note and agree with the documented findings, assessment and plan of care at 1115 at 1538 RPT #:[id number] OF REPORT PRProgress Qrhn0721-91-66K05:13:00F.YXNL68684025-8295LRYavew able for patient lsuvJJGGJLXFFYBOUN1207-69-70W88:38:55 [facility] 2021-05-25 09:13:00 XHeivbcebeo56171168V +82LHpdaQSE/IGm26iJhr/q45l5Y8 G29mcwn7hXZfyxC4bRB7/py0oTBCMjxvZt2412-18-98K58:1 3:00 [facility] ([facility])OB Antepartum Prog NoteREPORT#:[id number] REPORT STATUS: SignedDATE:05/25/21 TIME: 912 PATIENT: AICHA BARNES UNIT #: [id number]#: [id number] [address] [birth year] AGE: 31 SEX: F ATTEND: Patricia Pink [facility] AUTHOR: Chery Pimentel DO R2 * ALL edits or amendments must be made on the electronic/computer document * See AddendumChery Pimentel 05/25/21 0913:Subjective SubjectiveCurrent EGA: Current EGA(wks): 26 Current EGA(days): 5Patient reports: Patient reports: No: complaints, abdominal pain, vaginal bleeding, leaking fluid, contractions. Review of SystemsConstitutional:Denies: chills, fatigue, fever. GI:Denies: nausea, vomiting. :Denies: vaginal bleeding, vaginal discharge. Neuro:Denies: headache, vision change. ObjectiveVS:Last Documented: Result Date Time Pulse Ox 81 05/25 1045 Pulse 132 05/25 1045 B/P Mean 76.0 05/25 0915 B/P 109/58 05/25 0915 Temp 36.7 05/25 0915 Resp 18 05/25 0915 Vital Signs Date Temp Pulse Resp B/P B/P Mean Pulse Ox FiO2 05/24-05/25 36.7-37.1 83-132 18 93-119/52-61 67.0-83.0 81-100 PATIENT WEIGHT: Weight (lb): 227Weight (oz): Weight (kg): 102.965 Membranes: IntactUterine activity: Monitor: toco Frequency (description): noneLungs: clear to auscultationNeuro: Exam: alert, oriented x3, normal gaitAbdomen: gravid, softLower extremities: Calf tenderness: negativeBaby A: Baby A baseline: 145 bpm Baby A variability: moderate 6-25 bpmFindings/data:Laboratory Tests: 05/24 1724 Chemistry Creatinine (0.5 - 1.0 mg/dL) 0.9 Urines Ur Random Creatinine (mg/dL) 52.9 U Random Total Protein (mg/dL) 10.1 Urine Total Volume (ML) 2590 Creatinine Clearance (70 - 120 ml/min) 104 Ur Total Protein 24 Hr (20 - 150 mg/24HR) 262 *H Diagnosis, Assessment Plan Diagnosis, Assessment PlanFree text A P:31 year old at 26 5/7 weeks GA 1.AGA fetus, category 1 tracing, at risk for pretem delivery: celestone, magnesium sulfate, consult2. Chronic hypertensin, labile BP's, , monitor BP, no sign of severe preeclampsia3. cervical foreshortening, threaten delivery bed rest4. previous c/s x 3, repeat c/s5. trichomonas infection by PCR, not fully treated on 05/02 in [facility], Flagyl6. anemia Rx Patient discussed with Dr Fields: cervical shorteningPlan: continue current managmnt Nikko Martin 05/25/21 1538:Attestations Physician AttestationAgree w/findings plan:I was present during the sunshine or critical portions of the service provides by theresident. I examined the patient and discussed the patient's management with theresident. I reviewed the residents note and agree with the documented findings, assessment and plan of care at 1115 at 1538 Addendum 1: 05/25/212118 by Patricia Pink MD as above. BP much imporved. Proteinurei, mild. FEtus overall reassuring. Continue cureent managment at 2120 RPT #:[id number] OF REPORT PRProgress [id number]:13:00F.[id number] able for patient aavbVJDALHEJQADHOF5701-42-15Q32:20:07 [facility] 2021-05-24 21:10:00 [id number] KRfv/NoFln219M+lN+OPJ2R5JFdRe uXY84FUZMKfDS3Ma9uQFsu9Dj1Y1Ug6Uqa6871-44-23B77:1 0:00 [facility]OB Antepartum Prog NoteREPORT#:[id number] REPORT STATUS: SignedDATE:05/24/21 TIME: 2109 PATIENT: AICHA BARNES UNIT #: [id number]#: [id number] ROOM/BED: [facility]-ADOB: [birth year] AGE: 31 SEX: F ATTEND: Patricia Pink [facility] AUTHOR: Patricia Pink MD * ALL edits or amendments must be made on the electronic/computer document * Subjective SubjectiveComments:nobleeding or discharge, contractions controlled. ObjectiveVS:Last Documented: Result Date Time B/P Mean 83.0 05/24 2029 B/P 119/61 05/24 2029 Pulse 94 05/24 2029 Pulse Ox 99 05/24 1607 Temp 98.7 05/24 1607 Resp 18 05/24 1607 Vital Signs Date Temp Pulse Resp B/P B/P Mean Pulse Ox FiO2 05/23-05/24 98.2-98.8 90-111 16-18 99-146/54-69 73.0-96.0 96-100 PATIENT WEIGHT: Weight (lb): 227Weight (oz): Weight (kg): 102.965 Membranes: IntactHEENT: normocephalic w/o injuryCardiac: regular rate and rhythmLungs: clear to auscultationNeuro: Exam: alert, oriented x3, normal gaitAbdomen: gravid, softBaby A: Baby A FHR category: category 1 Diagnosis, Assessment Plan Diagnosis, Assessment PlanFree Text A P:31 year old at 26 4/7 weeks GA 1.AGA fetus, category 1 tracing, at risk for pretem delivery: celestone, magnesium sulfate, consult2. Chronic hypertensin, labile BP's, , monitor BP, no sign of severe preeclampsia3. cervical foreshortening, threaten delivery bed rest4. previous c/s x 3, repeat c/s5. trichomonas infection by PCR, not fully treated on 05/02 in [facility], Flagyl6. anemia Rx at 2111 RPT #:[id number] OF REPORT PRProgress [id number]:10:00F.[id number] able for patient jdrtYXIPMRYCPOVCPG4055-13-26M63:12:06 [facility] 2021-05-23 21:06:00 [id number] KVMERcsmXZDJUlGKh0bxOLJKPwWYA qLhz3em2dkNlieK1o2Eu96S5PQV5cowJa+1739-13-31D32:0 6:00 [facility]OB Admission / H PREPORT#:[id number] REPORT STATUS: SignedDATE:05/23/21 TIME: 2105 PATIENT: AICHA BARNES UNIT #: [id number]#: [id number] [address] [birth year] AGE: 31 SEX: F ATTEND: Patricia Pink AUTHOR: Patricia Pink MD * ALL edits or amendments must be made on the electronic/computer document * OB HistoryHPI:31 year old at 26 3/7 weeks GA, complaining of pelvic pressure, intermitent abdominal pain. No bleeding or discahrge. History of previous c/s x3. Chronic hypertension,labetalol 100 mg bid. Presented with elevated BP in office,2 + proteinuria. . Patient admitted for monitoring, celestone, magnesium sulfate. Poor OB history, 24 weeks delivery x 3, only one surviving child Past HistoryPast Surgical History:Reports: . Alcohol Use Denies EtOH useDrug Use Denies recreational drugsSmoking status: Smoking status for patients 13 years old or older: Never SmokerOther Social History Good social supportMedications:Home Medications:PNV/FE FUM/FA ( MULTIVITAMIN) 1 TAB PO DAILY HYDROcodone/APAP (NORCO 5/325) 1 TAB PO Q3H PRN PRN MODERATE PAIN (SCALE 4 - 6) IBUPROFEN (MOTRIN) 600 MG PO Q6H PRN PRN MILD PAIN (SCORE 1 - 3) Allergies:Coded Allergies:No Known Allergies (05/08/21) Objective GeneralVS: 126/71 P 109temp 100.2 Physical ExamHEENT: normocephalic w/o injuryCardiac: regular rate and rhythmLungs: clear to auscultationNeuro: Exam: alert, oriented x3, normal gaitAbdomen: gravid, softMembranes: Membranes: IntactBaby A: Baby A FHR category: category 1 ResultFindings/Data:Laboratory Tests: 05/23 05/23 05/23 1820 1820 1755 Chemistry Creatinine (0.5 - 1.0 mg/dL) 0.9 Calcium (8.4 - 10.2 mg/dL) <5.0 *L Total Bilirubin (0.2 - 1.0 mg/dL) <0.1 L AST (15 - 37 units/L) 2 L 17 ALT (12 - 78 units/L) <6 L 18 Lactate Dehydrogenase (81 - 234 units/L) 159 Hematology WBC (6.5 - 12.3 K/mm3) 8.3 RBC (3.51 - 4.69 M/mm3) 2.49 L Hgb (10.1 - 13.8 g/dL) 8.9 L Hct (32.5 - 41.8 %) 27.4 L MCV (84.6 - 96.6 fL) 110.0 H MCH (27.3 - 33.9 pg) 35.7 H MCHC (32.0 - 34.2 gm/dL) 32.5 RDW (12.2 - 16.3 %) 15.5 Plt Count (134 - 363 K/mm3) 193 MPV (9.2 - 12.7 fL) 10.0 Add Manual Diff YES Total Counted (#CELLS) 100 Seg Neutrophils % (56.5 - 79.4 %) 80 H Lymphocytes % (Manual) (20 - 40 %) 17 L Monocytes % (Manual) (0 - 8 %) 3 Platelet Estimate (ADEQ) ADEQUATE Plt Morphology Comment (NORMAL) NORMAL Macrocytosis 1+ Serology Treponema pallidum Ab (NONREACTIVE) NONREACTIVE Hep Bs Antigen (NONREACTIVE) NONREACTIVE Hepatitis C Antibody (NONREACTIVE) NONREACTIVE Hep C Ab Signal/Cutoff (<0.80) <0.02 HIV 1 2 Antibody (NONREACTIVE) NONREACTIVE SARS-CoV-2 Ag (Rapid) (NEGATIVE) NEGATIVE Diagnosis, Assessment Plan Diagnosis, Assessment PlanFree Text A P:31 year old at 26 3/7 weeks GA 1.AGA fetus, category 1 tracing, at risk for pretem delivery: celestone, magnesiumsulfate, consult2. Chronic hypertensin, labile BP's, , monitor BP, no sign of severe preeclampsia3. cervical foreshortening, threaten delivery bed rest4. previous c/s x 3, repeat c/s5. trichomonas infection byPCR, not fully treated on 05/02 in [facility], Flagyl6. anemia Rx at 2176 RPT #:[id number] OF REPORT HPHistory and physical yspmgbhciah5837-21-08O38:06:00F.[id number] AVAvailable for patient gwedSWEWBQSHLKOPRC2711-80-50X11:19:17 [facility] 2021-05-08 13:53:00 [id number] CwVkTc1KeJN58R3lEEBlJ2658K2tB Vks44h/hMcHU+oOi7lB7UG/tmzWFnzI1c32216-42-95B11:5 3:00 [facility] ([facility])EMERGENCY PROVIDER REPORTREPORT#:[id number] REPORT STATUS: SignedDATE:05/08/21 TIME: 1353 PATIENT: AICHA BARNES UNIT #: [id number]#: [id number] ROOM/BED:AGE: 31 SEX: F PCP PHYS: Patricia Pink AUTHOR: Ira Vargas DO * ALL edits or amendments must be made on the electronic/computer document * EARL History Nursing Documentation ReviewNursing data:The data set between the solid lines has been imported from nursing documentation. Any exceptions have been noted below under Provider comments. Current dataSteroids prior to arrival: ROM date: ROM time: EDC date: 08/26/21Gestational age (labor triage): Post hemorrhage risk score: Prior historyGravida: 4 Para: 2 Term: : Abortions spontaneous: Abortions induced: Living children: Ectopic: Stillbirths: Live births: deaths: Number of previous C/S: Reported maternal labs/dataBlood type: Rh type: Rubella: Hepatitis B: HIV exposure test: VDRL: Group B beta strep: Rho(D) immune globulin this preg: Monitor mode - UA: Feeding preference: Provider comments on imported nursing data: [] Chief complaint: uterine contractionsHPI:31 y/o at 24+1 weeks EGA NOT COVID vaccinated patient of Dr. Pink with CHTN and h/o pre-e and c/s x3 presents with concern for low back pain and lower pelvic tightening for the past couple of days. She denies abnormal discharge/VB/LOF, reports FM. She states she just feels nauseated today. She states that she just does not feel well overall today and is very tired. Patient became tearful during our interview together today and stated that she lives in [place] and drove here and stayed in a hotel overnight just so she could come here to [facility] today for evaluation. She states that she is very scared and worried about her and the possibility of again. She states that she is on bedrest at home and it's not going well because she does not feel well and is worrying alot, crying alot. She is not seeing a counselor and not on medications, and has no support group outreach in her small community. history: : 4 : 3 Living children: 1 Complications (prev preg): , hypertension, obesity, preeclampsia Previous : unknown uterine incision Number of prev : 3 Indication for prior : repeat elective, repeat medicalCurrent : EGA (weeks/days): 24+1Conditions of : previous uterine incision, chronic HTNPast medical history: hypertensionPast surgical history: (3 c sections)Social history: single, no alcohol use, no tobacco use, no drug useMedications:Home Medications: Medication Dose/Rte/Freq Days Qty Entered Last Max Daily Dose Reviewed PNV/FE FUM/FA 1 TAB PO DAILY 12/10/17 ( MULTIVITAMIN) 1410 Strength: 1 TAB TAB HYDROcodone/APAP 1 TAB PO 20 12/13/17 (NORCO 5/325) Q3H PRN PRN 0639 Strength: 1 TAB TAB MODERATE PAIN (SCALE 4 - 6) IBUPROFEN (MOTRIN) 600 MG PO 20 12/13/17 Strength: 600 MG TAB Q6H PRN PRN MILD 0639 PAIN (SCORE 1 - 3) Current Hospital Medications:Anti-Infective Agents Sig/Dima Start time Last Medication Dose Route Stop Time Status Admin Ceftriaxone Sodium 1,000 MG ONCE 05/08 1430 CKD 05/08 (ROCEPHIN 1000 MG/ IV 05/08 2300 1543 VIAL) Sodium Chloride 100 ML (SODIUM CHLORIDE 0.9% 100 ML ADD- [place]) Electrolytic, Caloric, And Willian Sig/Dima Start time Last Medication Dose Route Stop Time Status Admin Lactated Ringer's 1,000 ML BOLUS ONCE 05/08 1430 AC 05/08 (LACTATED RINGERS) IV 05/08 2300 1543 AllergiesCoded Allergies:No Known Allergies (05/08/21) Review of SystemsAdditional notes:10 systems reviewed and negative with the exception of the following pertinent positives: pelvic tightening and low back pain Objective GeneralVS:PATIENT WEIGHT: Weight (lb): 226Weight (oz): Weight (kg): 99.990103 Notes:VS normal- initial temp:99.9 (repeat 98.3).Normotensive, HR:90's Physical ExamHEENT: normocephalic w/o injury, no scleral icterusCardiac: regular rate and rhythm, no clinically sig murmur, no gallops, no rubsLungs: clear to auscultation, no rales, no rhonchiNeuro: Exam: alert, oriented x3, normal speech, CNII-XII grossly intactAbdomen: gravid, soft, no abnormal tenderness, no guarding, no rebound tendernessMusculoskeletal: normal inspectionGenitourinary: no flank painUterine activity: Monitor: toco Frequency (description): rarePelvic exam: Pelvis clinically adequate: yes Vulvar lesions: none Vagina: normal, non-septated, w/o apparent lesions Uterus size in weeks: 26 Exam: soft, non-tender, approp size for gest age Sterile speculum exam: visually closed, physiological discharge, no pooling, no bleedingCervical/ exam: Dilatation (cm): 0 - closed Effacement (%): 25 presentation: breech FHR evaluation: Notes:FHR tracing overall reassuring for gestational ageMembranes: Membranes: IntactLower extremities: Edema: noneAdditional comments:Psych: normal insight and judgement, but shows evidence of anxiety due to current life circumstances. ResultsFindings/Data:Laboratory Tests: 05/08 05/08 1445 1238 Serology SARS CoV-2 RNA Rapid TOMASA (Negative) Negative Urines Urine Color (YELLOW) CORI A Urine Appearance (CLEAR) CLOUDY A Urine pH (5 - 9) 6.0 Ur Specific Beggs (1.001 - 1.035) 1.025 Urine Protein (NEG) 1+ H Urine Glucose (UA) (NEG) NEGATIVE Urine Ketones (NEG) NEGATIVE Urine Blood (NEG) NEG Urine Nitrite (NEG) NEG Urine Bilirubin (NEG) NEGATIVE Urine Urobilinogen (NEG mg/dL) 2.0 Ur Leukocyte Esterase (NEG) TRACE H Urine RBC (NONE SEEN #/hpf) 3-5 H Urine WBC (NONE SEEN #/hpf) 6-10 H Ur Epithelial Cells (RARE - FEW #/HPF) MANY H Urine Bacteria (RARE - FEW /HPF) RARE Urine Mucus (NONE SEEN) RARE Recent Impressions:ULTRASOUND - US LTD 05/08 1415 Report Impression - Status: SIGNED Entered: 05/08/2021 1504 IMPRESSION: Single viable intrauterine . See above details.Impression By: Madeline Gunter MDULTRASOUND - US PREG UT TRANSVAGINAL 05/08 1415 Report Impression - Status: SIGNED Entered: 05/08/2021 1504 IMPRESSION: Single viable intrauterine . See above details.Impression By: Madeline Gunter MD Results: labs reviewed, vital signs stable, US personally reviewed Treatment Prophylaxis Treatment ProphylaxisFoley status: none Diagnosis, Assessment Plan Diagnosis, Assessment PlanFree Text A P:31 y/o at 26+3 weeks EGA with uterine ctx and low back pain. Additionally, patient with anxiety features. FHR tracing overall reassuring for gestational ageTVUS demonstrates a CL: at 4.4 cm, no funneling cervix closed on examUA with RBC/WBC and patient with urinary frequency,-gave IVF with Rocephin Plan:-COVID test: negative-gave reassurance and discussed modified activity profile versus bed rest and recommend that she try to live as normal life as she can with 30 min daily walk,light housework (dusting, laundry, dishes) without lying in bed all day every day, would likely benefit her emotional health. Also, recommend she seek some emotional counseling this , and could consider adding an SSRI into the discussion next time she sees Dr. Pink. -discharged home after completion of IVF and antibiotics (1 gram Rocephin)-follow up with Dr. Pink as scheduled and gave patient plenty of reassurance regarding her normal evaluation today.-recommend COVID 19 vaccination due to imminent surge of delta variantEBselam GRACIA FACOGAssessment/Impression: reassuring status, normal FHR patternPlan: discharge homePlan discussed with: patient AttestationsAttestation needed: not applicable Physician AttestationAgree w/findings plan:Agree with the findings and plan as documented by [insert DAYO name];* my personal evaluation is[ ] at 1750 RPT #:[id number] OF REPORT OBObstetric nssy1599-55-03Z69:53:00F.[id number] able for patient lorhTIHEHUNVPPQONI4177-95-55K06:51:06 [facility]
--- NOTE | 2024-03-11 13:00 | EDPHYS ---
Physician Documentation [facility] Name: Melchor Roblero Age: 34 yrs Sex: Female : 1990 Arrival Date: 03/11/2024 Time: 11:48 Bed 12 Private MD: ED Physician Dirk Benítez HPI: 03/11 12:58 This 34 yrs old Female presents to ER via Ambulatory with complaints of rn possible Abscess. 12:59 the patient presents with a swollen area of the buttocks. Onset: The symptoms/episode rn began/occurred 4 month(s) ago. Possible cause(s): unknown. Modifying factors: the symptoms are alleviated by nothing, the symptoms are aggravated by touching. Severity of symptoms: At their worst the symptoms were mild, in the emergency department the symptoms are unchanged. The patient has not experienced similar symptoms in the past. Patient reports rash and swollen area to the right butt cheek for the last 4 to 6 months. Reports a little bit more pain for the last week or so. No drainage. No fever. No trauma. Seen in the past and was told could be from HPV or other STI.. Historical: - Allergies: 12:18 No Known Allergies; ll1 - Home Meds: 12:18 Iron CR Oral three times a day [Active]; ll1 - PMHx: 12:18 Anemia; ll1 - PSHx: 12:18 section; ll1 - Immunization history:: Adult Immunizations up to date. - Infectious Disease History:: Denies. - Social history:: Smoking status: Patient denies any tobacco usage or history of. - Family history:: not pertinent. - Hospitalizations: : No recent hospitalization is reported. ROS: 12:59 Constitutional: Negative for fever, chills, and weight loss, Skin: Positive for rn swelling and rash to right buttocks Exam: 12:59 Constitutional: This is a well developed, well nourished patient who is awake, alert, rn and in no acute distress. Skin: Right buttocks with 3 cm irregular condylomatous growth, no abscess or induration. Mild tenderness. Does not abut the anus or perianal region. No fluctuance. No purulence or foul smell. Vital Signs: 12:18 BP 160 / 107; Pulse 88; Resp 18; Temp 97.6; Pulse Ox 97% ; Weight 115.67 kg; Height 5 ll1 ft. 1 in. ; Pain 10/10; 12:18 Body Mass Index 48.18 (115.67 kg, 154.94 cm) ll1 12:18 Pain Scale: Adult ll1 MDM: 11:56 Patient medically screened. rn 12:59 Differential diagnosis: abscess, cellulitis, Condyloma, STI. Differential diagnosis: rn Cancer. Data reviewed: vital signs, nurses notes. Counseling: I had a detailed discussion with the patient and/or guardian regarding the historical points, exam findings, and any diagnostic results supporting the discharge/admit diagnosis, the need for outpatient follow up, to return to the emergency department if symptoms worsen or persist or if there are any questions or concerns that arise at home. Special discussion: I discussed with the patient/guardian in detail that at this point there is no indication for admission to the hospital. It is understood, however, that if the symptoms persist or worsen the patient needs to return immediately for re-evaluation. Based on the history and exam findings, there is no indication for further emergent testing or inpatient evaluation. I discussed with the patient/guardian the need to see the engineer byproduct for further evaluation of the symptoms. ED course: Recommend dermatology follow-up for further evaluation. No indication for emergent incision and drainage at this time. More of a condylomatous lesion that could be HPV or other STI related.. Administered Medications: No medications were administered Disposition Summary: 03/11/24 12:59 Discharge Ordered Notes: Location: Home rn Problem: an ongoing problem rn Symptoms: are unchanged rn Condition: Stable rn Diagnosis - Rash and other nonspecific skin eruption rn Followup: rn - With: Private Physician - When: As needed - Reason: Recheck today's complaints, Re-evaluation by your physician Discharge Instructions: - Discharge Summary Sheet rn - Rash, Adult rn Forms: - Medication Reconciliation Form rn - Antibiotic warning analyst - Prescription Opioid Use rn - Patient Portal Instructions rn - Leadership Thank You Letter rn Prescriptions: - Clindamycin HCl 300 mg Oral Capsule - take 1 capsule ORAL route every 6 hours for 10 days; 40 capsule; Refills: 0, rn Product Selection Permitted Signatures: Dirk Benítez MD MD rn Lewis, Lynsay, RN RN ll1
--- NOTE | 2024-03-11 13:00 | ER ---
Nurse's Notes [facility] Name: Melchor Roblero Age: 34 yrs Sex: Female : 1990 Arrival Date: 03/11/2024 Time: 11:48 Bed 12 Private MD: Diagnosis: Rash and other nonspecific skin eruption Presentation: 03/11 12:18 Chief complaint: Patient states: Abscess to R inner buttocks area for months, painful ll1 for 1 week. No fever or drainage. Coronavirus screen: Client denies travel out of the [place] in the last 14 days. At this time, the client does not indicate any symptoms associated with coronavirus-19. Ebola Screen: Patient denies travel to an Ebola-affected area in the 21 days before illness onset. Initial Sepsis Screen: Does the patient meet any 2 criteria? No. Patient's initial sepsis screen is negative. Does the patient have a suspected source of infection? No. Patient's initial sepsis screen is negative. Risk Assessment: Do you want to hurt yourself or someone else? Patient reports no desire to harm self or others. Onset of symptoms was March 04, 2024. 12:18 Method Of Arrival: Ambulatory ll1 12:18 Acuity: SANA 4 ll1 Historical: - Allergies: 12:18 No Known Allergies; ll1 - Home Meds: 12:18 Iron CR Oral three times a day [Active]; ll1 - PMHx: 12:18 Anemia; ll1 - PSHx: 12:18 section; ll1 - Immunization history:: Adult Immunizations up to date. - Infectious Disease History:: Denies. - Social history:: Smoking status: Patient denies any tobacco usage or history of. - Family history:: not pertinent. - Hospitalizations: : No recent hospitalization is reported. Screenin:39 [facility] ED Fall Risk Assessment (Adult) History of falling in the last 3 months, iw including since admission No falls in past 3 months (0 pts). Abuse screen: Denies threats or abuse. Denies injuries from another. Nutritional screening: No deficits noted. Tuberculosis screening: No symptoms or risk factors identified. Assessment: 12:38 General: Appears uncomfortable, Behavior is calm, cooperative. Pain: Complains of pain iw in gluteal cleft. Neuro: Level of Consciousness is awake, alert, obeys commands, Moves all extremities. Full function. Cardiovascular: Patient's skin is warm and dry. Respiratory: Respiratory effort is even, unlabored, Respiratory pattern is regular. Derm: lesion noted to right inner buttock, tender to touch. Vital Signs: 12:18 BP 160 / 107; Pulse 88; Resp 18; Temp 97.6; Pulse Ox 97% ; Weight 115.67 kg; Height 5 ll1 ft. 1 in. ; Pain 10/10; 12:18 Body Mass Index 48.18 (115.67 kg, 154.94 cm) ll1 12:18 Pain Scale: Adult ll1 ED Course: 11:55 Patient arrived in ED. mr 11:56 Dirk Benítez MD is Attending Physician. rn 12:07 Arm band placed on. ll1 12:18 Patient placed in an exam room, on a stretcher. ll1 12:20 Triage completed. ll1 12:20 Suzanna Gonzalez RN is Primary Nurse. iw 12:41 No provider procedures requiring assistance completed. Patient did not have IV access iw during this emergency room visit. 13:00 Patient has correct armband on for positive identification. Provided Education on: . iw Administered Medications: No medications were administered Medication: 12:41 VIS not applicable for this client. iw Outcome: 12:59 Discharge ordered by . rn 13:03 Discharged to home ambulatory, with family, iw 13:03 Condition: good 13:03 Discharge instructions given to patient, Instructed on discharge instructions, follow up and referral plans. Demonstrated understanding of instructions, follow-up care, 13:04 Patient left the ED. iw Signatures: Lois Dalton, Reg Reg mr Suzanna Gonzalez RN RN iw Dirk Benítez MD MD rn Lewis, Lynsay, RN RN [facility]
[2024-03-11 13:25] VITALS: BP 160/107; TEMP 97.6; O2SAT 97
== END 2024-03-11 13:04 | disposition home or self-care (01) ==
LOC: ER 11:48
DX: R21 Rash and other nonspecific skin eruption (principal)
CPT/HCPCS: 99282

== ENCOUNTER 2024-10-07 16:29 | Emergency (ER) | payer OTHER, SELFPAY ==
--- OUTSIDE RECORDS SUMMARY | 2024-10-07 16:33 | XMS REPORT | Continuity of Care Document ---
Author Name Unknown Address [address] [facility]. [address] [place] [address] [facility] thconnect Address 1200 [facility] [address] [place] [address] Support Name Relationship Address Phone NO PHYSICIAN, . Primary Care Physician Unknown Un available MD Janelle Lundberg Emergency Provider [address] [place] [address] ANGEL TOLEDO Next of Kin [address] [place] [address] ANGEL TOLEDO Emergency Contact [address] [place] [address] JOSE TOLEDO Guarantor [address] [place] [address] LOR ARCHER SI [address] [place] [address] EDWARD BYRNES, ELISEO Crawford Emergency Provider [address] [place] [address] PHYSICIAN, NO Primary Care Physician Unknown Unav ailable GAIL PINEDA [place] [address] MD PATRICIA PINK Other Provider [address] [place] [address] MD MICHELLE IBARRA Emergency Provider [address] [place] [address] LOR BARNES Emergency Contact [address] [place] [address] Unavailable MD BLAIRE LIMON Emergency Provider [address] [place] [address] MD ELISEO LEON Emergency Provider [address] [place] [address] MD EDOUARD PALENCIA Admitting Provider [address] [place] [address] MD SHAUN HO Emergency Provider [address] [place] [address] LOR ARCHER Personal Relationship [address] [place] [address] Care Team Providers Care Wood Craftsman Name Role Phone Janelle Lundberg Attending Clinician Unavailab ASHLEE Sandhu Attending Clinician Unavailable Shaun Ho Attending Clinician Unavailab le GRIS_MELISSA Attending Clinician Unavailable EDOUARD PALENCIA Attending Clinician Unavail able BLAIRE LIMON Attending Clinician Unavailab Patricia Camarillo Attending Clinician Unavailable MICHELLE IBARRA Attending Clinician Unavailabl e AMBNICOL_CYNDEE Attending Clinician Unavailable AMEENA HECK Attending Clinician Unavailable ELISEO LEON Attending Clinician Unavail able ERMELIN[address] Attending Clinician Unavailable JULIUS QUIÑONES Attending Clinician Unavailable HERMILA BRAVO Attending Clinician Unavailable TORIBIO MARIE Attending Clinician Unavaila URIEL Cazares Attending Clinician Unavaila ble GRIS_DEMETRIUS Admitting Clinician Unavailable EDOUARD PALENCIA Admitting Clinician Unavail able Patricia Pink Admitting Clinician Unavailable KATRINA Admitting Clinician Unavailable TORIBIO MARIE Admitting Clinician Unavaila MICHELLE Paredes Admitting Clinician Unavailabl e Payers Payer Name Policy Type Policy Number Effective Date Expirati on Date Source [facility] (MEDICAID REPLACEMENT - HMO) [id number] Allergies, Adverse Reactions, Alerts Allergy Name Allergy Type Status Severity Reaction(s) Onset Date Inactive Date Treating Clinician Comments Source No Known Allergie s DA Active U 05-08 00:00: 00 [facility] No Known Allergie s DA Active U 05-08 00:00: 00 [facility] No Known Allergie s DA Active U 12-10 00:00: 00 [facility] Procedures Procedure Date / Time Performed Performing Clinicia n Source [id number] 2021-07-14 00:00:00 GEIAL.01 [facility] [id number] 2021-07-14 00:00:00 GEIAL.01 [facility] [id number] 2021-07-14 00:00:00 GEIAL.01 [facility] [id number] 2021-07-10 00:00:00 GEIAL.01 [facility] [id number] 2021-07-10 00:00:00 GEIAL.01 [facility] [id number] 2021-07-10 00:00:00 GEIAL.01 [facility] Encounters Start Date/Time End Date/Time Encounter Type Admission Type Attending [facility] Facility Care Department Encounter ID Source 2024-01-22 11:17:19 2024-01-22 11:17:19 Outpatient S[facility] [id number] Jack Shayna Juan 2023-08-13 16:56:00 2023-08-13 18:15:00 emergency [facility] [id number] 2023-08-13 16:56:00 2023-08-13 18:15:00 Emergency ER Janelle Lundberg [facility] [id number] [facility] 2022-12-01 05:12:00 2022-12-01 06:28:00 Emergency ER ASHLEE REYNOSO [facility] [id number] [facility] 2022-05-06 14:27:00 2022-05-06 16:24:00 Emergency ER Shaun Ho [facility] [id number] [facility] 2022-02-08 11:38:00 2022-02-08 11:38:00 Outpatient GRIS_SEEMAI DESEAN DIOR [facility] [id number] [facility] 2022-02-08 11:38:00 2022-02-08 11:38:00 Outpatient LISTER_PING [facility] [id number] [facility] 2021-10-21 00:45:00 2021-10-26 14:50:00 Inpatient ER EDOUARD PALENCIA [facility] [id number] [facility] 2021-10-11 16:47:00 2021-10-11 20:26:00 Emergency ER BLAIRE LIMON [facility] [id number] [facility] 2021-05-23 17:45:00 2021-07-21 19:55:00 Inpatient EL Patricia Pink [facility] OBPP [id number] [facility] 2021-05-26 23:35:00 2021-05-26 23:35:00 [facility] [id number] [facility] 2021-05-08 12:16:00 2021-05-08 17:10:00 Emergency EM Patricia Pink [facility] EARL [id number] [facility] 2021-05-02 11:15:00 2021-05-02 13:14:00 Emergency ER MICHELLE IBARRA [facility] [id number] [facility] 2020-12-20 04:38:00 2020-12-20 04:38:00 Outpatient AMBREEN_RICK [facility] [id number] [facility] 2019-12-08 02:21:00 2019-12-08 02:21:00 Outpatient AMBREEN_RICK [facility] [id number] [facility] 2019-11-29 00:52:00 2019-11-29 03:44:00 Emergency ER AMEENA HECK [facility] [id number] [facility] 2018-10-15 18:20:00 2018-10-15 19:10:00 Emergency ER ELISEO LEON [facility] [id number] [facility] 2017-04-04 12:18:00 2017-04-04 14:59:[address] [facility] [id number] [facility] 2015-10-08 18:45:00 2015-10-08 22:02:00 Emergency ER JULIUS QUIÑONES [facility] [id number] [facility] 2014-12-07 17:36:00 2014-12-07 20:55:00 Emergency ER HERMILA BRAVO [facility] [id number] [facility] 2014-06-20 19:54:00 2014-06-20 22:04:00 Emergency ER Shaun Ho [facility] [id number] [facility] 2012-07-25 04:30:00 2012-07-27 12:00:00 Inpatient TORIBIO ORTIZ [facility] MOB [id number] [facility] 2012-04-07 19:23:00 2012-04-07 21:22:00 Emergency ER SAMUELURIEL BURGESS [facility] [id number] [facility] 2011-11-03 14:15:00 2011-11-03 20:15:00 Inpatient ER FRANKRANJITTORIBIO [facility] MOB [id number] [facility] 2011-09-08 18:26:00 2011-09-09 01:16:00 Emergency ER SAMUELMARIANA BURGESSE [facility] [id number] [facility] 2005-08-08 11:07:00 2005-08-08 18:30:00 Inpatient MICHELLE DENNEY [facility] MOB [id number] [facility] Results Test Description Test Time Test Comments Results Result Co mments Source CULTURE, [id number] 11:32:26SPECIMEN NUMBER: [id number] CULTURE, ROUTINE SPECIMEN NUMBER: [id number] SPECIMEN COMMENT: AMINTA ANALSOURCE: ANAL REPORT STATUS: FINAL FINAL REPORT: 01/25/2024 MODERATE NORMAL SKIN WILIAM PRELIMINARY RE PORT: 01/24/2024 MODERATE GRAM POSITIVE WILIAM PRELIMINARY REPORT #2: 01/25/2024 MODERATE MIXED GRAMPOSITIVE FLORAHGB [id number] 23:15:00* Test Item Value Reference Range Interpretation Comme nts HEMOGLOBIN (test code = HGB) 8.1 g/dL 10.1-13.8 L HEMATOCRIT (test code = HCT) 25.4 % 32.5-41.8 L CBC W/AUTO [id number] 05:57:00* Test Item Value Reference Range Interpretation Comme nts WHITE BLOOD CELL (test code = WBC) 6.9 K/mm3 6.5-12.3 N RED BLOOD CELL (test code = RBC) 1.91 M/mm3 3.51-4.69 L HEMOGLOBIN (test code = HGB) 6.9 g/dL 10.1-13.8 LL RESULTS CALLED Suad GREEN RNREAD BACK & CONFIRMED? YESBY [id number] 07/19/21 0557 HEMATOCRIT (test code = HCT) [...] (test code = PLTMR) NORMAL NORMAL HGB [id number] 09:11:00* Test Item Value Reference Range Interpretation Comme nts HEMOGLOBIN (test code = HGB) 6.9 g/dL 10.1-13.8 LL RESULTS CALLED Suad SANTILLANREAD BACK & CONFIRMED? YBY [id number] 07/18/21 0911Results verified by repeat analysis HEMATOCRIT (test code = HCT) 22.5 % 32.5-41.8 L BASIC METABOLIC [id number] 09:57:00* Test Item Value Reference Range Interpretation [...] CA) 8.1 mg/dL 8.4-10.2 L CBC W/AUTO [id number] 09:31:00* Test Item Value Reference Range Interpretation Comme nts WHITE BLOOD CELL (test code = WBC) 6.7 K/mm3 6.5-12.3 N RED BLOOD CELL (test code = RBC) 1.83 M/mm3 3.51-4.69 L HEMOGLOBIN (test code = HGB) 6.5 g/dL 10.1-13.8 LL RESULTS CALLED Suad Celena FRIEDMAN CORPUZREAD BACK & CONFIRMED? YES BY MANDI 07/16/21 6209 HEMATOCRIT (test code = HCT) 21.3 % [...] code = PLTMR) NORMAL NORMAL CBC W/AUTO [id number] 08:38:00* Test Item Value Reference Range Interpretation [...] code = PLTMR) NORMAL NORMAL PLACENTA THIRD [id number] 10:35:00* Test Item Value Reference Range Interpretation Comme nts PLACENTA THIRD TRIMESTER (test code = PLACIII) RUN DATE: 08/10/21 [facility] PAGE 1 RUN TIME: 3 Specimen Inquiry RUN USER: INTERFACE PATIENT: AICHA BARNES LOC: AJIT U #: [id number] AGE/SX: 31/F ROOM: [facility] RE05/23/21REG DR: Patricia Pink MD : 89 BED: A DIS: 07/21/21 STATUS: DIS IN TLOC: SPEC #: [id number] RECD: 07/11/21 STATUS: IRAIS AYON #: [id number] GENI: 07/10/21- SUBM DR: Patricia Pink MD ENTERED: 07/11/21 SP TYPE: PLACIII OTHR DR: Ric Rivera MD ORDERED: LEVEL V SURGICA CODES: [id number] - PLACENTA, NOS COPIES TO: Patricia Pink MD [address] [place] [address] [email or web address] Rivera MD [address] [place] [address] [email or web address] PROCEDURES: LEVEL V SURGICA (Incomplete) TISSUES: PLACENTA, [...] umbilical cord: focal minimal acute vasculitis CPT: 93664 ssa/wpd CONTINUED ON NEXT PAGE RUN DATE: 08/10/21 [facility] PAGE 2 RUN TIME: 0004 Specimen Inquiry RUN USER: INTERFACE SPEC #: [id number] PATIENT: AICHA BARNES #[id number] (Continued) --- GROSS DESCRIPTION The specimen was [...] parenchyma (in A4) Cassettes: A1 through A4 hz/wpmaximilian 07/11/21 Signed Yennifer Schmidt 07/13/21 1035 END OF REPORT COMPREHENSIVE METABOLIC [id number] 06:27:00* Test Item Value Reference Range Interpretation [...] ALKP) 82 units/L 46-116 N CBC W/AUTO [id number] 06:11:00* Test Item Value Reference Range Interpretation Comme nts WHITE BLOOD CELL (test code = WBC) 7.7 K/mm3 6.5-12.3 N RED BLOOD CELL (test code = RBC) 1.79 M/mm3 3.51-4.69 L HEMOGLOBIN (test code = HGB) 6.5 g/dL 10.1-13.8 LL RESULTS CALLED Suad MORENO RNREAD BACK & CONFIRMED? YESBY [id number] 07/13/21 0610 HEMATOCRIT (test code = HCT) [...] code = PLTMR) NORMAL NORMAL COMPREHENSIVE METABOLIC [id number] 06:05:00* Test Item Value Reference Range Interpretation [...] ALKP) 93 units/L 46-116 N CBC W/AUTO [id number] 05:53:00* Test Item Value Reference Range Interpretation Comme nts WHITE BLOOD CELL (test code = WBC) 8.7 K/mm3 6.5-12.3 N RED BLOOD CELL (test code = RBC) 1.94 M/mm3 3.51-4.69 L HEMOGLOBIN (test code = HGB) 7.0 g/dL 10.1-13.8 L RESULTS CALLED Suad MORENO RN.READ BACK & CONFIRMED YESBY [id number] 07/12/21 0551 HEMATOCRIT (test code = HCT) [...] (test code = PLTMR) NORMAL NORMAL PIH [id number] 13:36:00* Test Item Value Reference Range Interpretation Comme nts CREATININE (test code = CREAT) 1.1 mg/dL 0.5-1.0 H SGOT/AST (test code = AST) 35 units/L 15-37 N SGPT/ALT (test code = ALT) 21 units/L 12-78 N LACTIC DEHYDROGENASE(LDH) (t est code = LDH) 434 units/L 81-234 H : *[id number] 13:36:00* Test Item Value Reference Range Interpretation Comme nts MAGNESIUM (test code = MAG) 5.6 mg/dL 1.8-2.4 HH RESULTS VERIFIED BY REPEAT ANALYSISRESULTS CALLED TO OKSANA RamirezREAD BACK & CONFIRMED? YES.BY FJenniferLAB.ELB1 07/11/21 1335. : *CBC W/AUTO [id number] 07:06:00* Test Item Value Reference Range Interpretation [...] code = PLTMR) NORMAL NORMAL CAPILLARY BLOOD [id number] 21:19:00* Test Item Value Reference Range Interpretation [...] = FIO2C) 21.0 % UR CREATININE CLEARANCE [id number] 18:43:00* Test Item Value Reference Range Interpretation Comme nts CREATININE CLEARANCE RESULT (test code = CREATCLR) 94 ml/min 70-120 N CREATININE (test code = CREAT) 1.0 mg/dL 0.5-1.0 N UR CREATININE RANDOM (test c ode = CREATU) 68.6 mg/dL UR VOLUME (test code = VOL) 2000 ML UR PROTEIN [id number] 18:43:00* Test Item Value Reference Range Interpretation Comme nts UR PROTEIN RANDOM (test code = PROTU) 224.4 mg/dL UR PROTEIN 24HR (test code = OJST74L) 4488 mg/24HR 20-150 HH RESULTS CALLED Suad ERNST.READ BACK & CONFIRMED? YES.BY [id number] 07/10/21 2739.Units for 24 HR Urine Protein have changed: New Units = MG/24HR [facility] [id number] 06:48:00* Test Item Value Reference Range Interpretation Comme nts CREATININE (test code = CREAT) 1.0 mg/dL 0.5-1.0 N SGOT/AST (test code = AST) 26 units/L 15-37 N SGPT/ALT (test code = ALT) 18 units/L 12-78 N LACTIC DEHYDROGENASE(LDH) (t est code = LDH) 237 units/L 81-234 H : *CBC W/AUTO [id number] 06:41:00* Test Item Value Reference Range Interpretation [...] (test code = PLTMR) NORMAL NORMAL PIH [id number] 14:51:00* Test Item Value Reference Range Interpretation Comme nts CREATININE (test code = CREAT) 1.1 mg/dL 0.5-1.0 H SGOT/AST (test code = AST) 28 units/L 15-37 N SGPT/ALT (test code = ALT) 19 units/L 12-78 N LACTIC DEHYDROGENASE(LDH) (t est code = LDH) 229 units/L 81-234 N : *CBC W/AUTO [id number] 13:41:00* Test Item Value Reference Range Interpretation [...] code = PLTMR) NORMAL NORMAL UR PROTEIN/CREATININE [id number] 11:48:00* Test Item Value Reference Range Interpretation Comme nts UR PROTEIN RANDOM (test code = PROTU) 395.6 mg/dL UR CREATININE RANDOM (test code = CREATU) 124.9 mg/dL PROTEIN/CREATININE RATIO (test code = P/CRATIO) 3167.3 mg/gcrea <200 H [id number] 20:43:00* Test Item Value Reference Range Interpretation Comme nts GLUBED (test code = GLUBED) 124 mg/dL 65-110 H [id number] 14:14:00* Test Item Value Reference Range Interpretation Comme nts GLUBED (test code = GLUBED) 98 mg/dL 65-110 N [id number] 09:46:00* Test Item Value Reference Range Interpretation Comme nts GLUBED (test code = GLUBED) 85 mg/dL 65-110 N [id number] 06:30:00* Test Item Value Reference Range Interpretation Comme nts GLUBED (test code = GLUBED) 93 mg/dL 65-110 N [id number] 20:01:00* Test Item Value Reference Range Interpretation Comme nts GLUBED (test code = GLUBED) 103 mg/dL 65-110 N [id number] 14:19:00* Test Item Value Reference Range Interpretation Comme nts GLUBED (test code = GLUBED) 136 mg/dL 65-110 H [id number] 10:07:00* Test Item Value Reference Range Interpretation Comme nts GLUBED (test code = GLUBED) 137 mg/dL 65-110 H [id number] 06:01:00* Test Item Value Reference Range Interpretation Comme nts GLUBED (test code = GLUBED) 95 mg/dL 65-110 N [id number] 19:44:00* Test Item Value Reference Range Interpretation Comme nts GLUBED (test code = GLUBED) 127 mg/dL 65-110 H [id number] 14:35:00* Test Item Value Reference Range Interpretation Comme nts GLUBED (test code = GLUBED) 107 mg/dL 65-110 N [id number] 10:40:00* Test Item Value Reference Range Interpretation Comme nts GLUBED (test code = GLUBED) 125 mg/dL 65-110 H [id number] 07:48:00* Test Item Value Reference Range Interpretation Comme nts GLUBED (test code = GLUBED) 89 mg/dL 65-110 N VITAMIN [id number] 11:35:00* Test Item Value Reference Range Interpretation Comme nts VITAMIN B12 (test code = VITB12) 423 pg/mL 239-931 FOLIC [id number] 11:35:00* Test Item Value Reference Range Interpretation Comme nts FOLIC ACID (test code = FOL) 13.1 ng/mL See_Comment REFERENCE VALUES : NORMAL: 2.76 - >20 ng/ML DEFICIENT: 1.04 - 2.79 ng/ML [Automated message] The system which generated this result transmitted reference range: (). The reference range was not used to interpret this result as normal/abnormal. [id number] 11:35:00* Test Item Value Reference Range Interpretation Comme nts FERRITIN (test code = FLORENCIO) 66.5 NG/ML 6.24-137 HGB [id number] 11:35:00* Test Item Value Reference Range Interpretation Comme nts HEMOGLOBIN A1 (test code = HGBA1) 97.2 % Reference Interv al - 96.4-98.8 HEMOGLOBIN A2 (test code = HGBA2) 2.2 1.5-3.5 N HEMOGLOBIN S (test code = HGBS) 0 % HEMOGLOBIN F (test code = HGBF) 0.6 0-2 N HGB ELECTROPHORESIS INTERP (test code = HGBINT) Normal adul t hemoglobin present. VITAMIN [id number] 17:22:00* Test Item Value Reference Range Interpretation Comme nts VITAMIN B12 (test code = VITB12) 423 pg/mL 239-931 FOLIC [id number] 17:22:00* Test Item Value Reference Range Interpretation Comme nts FOLIC ACID (test code = FOL) 13.1 ng/mL See_Comment REFERENCE VALUES : NORMAL: 2.76 - >20 ng/ML DEFICIENT: 1.04 - 2.79 ng/ML [Automated message] The system which generated this result transmitted reference range: (). The reference range was not used to interpret this result as normal/abnormal. [id number] 17:22:00* Test Item Value Reference Range Interpretation Comme nts FERRITIN (test code = FLORENCIO) 66.5 NG/ML 6.24-137 HGB [id number] 17:22:00* Test Item Value Reference Range Interpretation [...] INTERP ( test code = HGBINT) VITAMIN [id number] 17:22:00* Test Item Value Reference Range Interpretation Comme nts VITAMIN B12 (test code = VITB12) 423 pg/mL 239-931 N FOLIC ACID BY [id number] 17:22:00* Test Item Value Reference Range Interpretation Comme nts FOLIC ACID BY GALDINO (test code = FOLR) 13.1 ng/mL REFERENCE ANN UES: NORMAL: 2.76 - >20 ng/ML DEFICIENT: 1.04 - 2.79 ng/ML [id number] 17:22:00* Test Item Value Reference Range Interpretation Comme nts FERRITIN (test code = FLORENCIO) 66.5 NG/ML 6.24-137 N VITAMIN [id number] 16:50:00* Test Item Value Reference Range Interpretation Comme nts VITAMIN B12 (test code = VITB12) FOLIC [id number] 16:50:00* Test Item Value Reference Range Interpretation Comme nts FOLIC ACID (test code = FOL) [id number] 16:50:00* Test Item Value Reference Range Interpretation Comme nts FERRITIN (test code = FLORENCIO) 66.5 NG/ML 6.24-137 HGB [id number] 16:50:00* Test Item Value Reference Range Interpretation Comme nts HEMOGLOBIN A1 (test code = HGBA1) % HEMOGLOBIN A2 (test code = HGBA2) 1.5-3.5 HEMOGLOBIN S (test code = HGBS) % HEMOGLOBIN C (test code = HGBC) HEMOGLOBIN F (test code = HGBF) 0-2 HEMOGLOBIN SOLUBILITY (test code = HGBSOL) HEMOGLOBIN VARIANT (test code = HGBVAR) HGB ELECTROPHORESIS INTERP ( test code = HGBINT) FOLIC ACID BY [id number] 16:50:00* Test Item Value Reference Range Interpretation Comme nts FOLIC ACID BY GALDINO (test code = FOLR) ng/mL [id number] 16:50:00* Test Item Value Reference Range Interpretation Comme [facility] FERRITIN (test code = FLORENCIO) 66.5 NG/ML 6.24-137 N VITAMIN [id number] 16:50:00* Test Item Value Reference Range Interpretation Comme [facility] VITAMIN B12 (test code = VITB12) pg/mL 239-931 TOTAL IRON BINDING [id number] 16:25:00* Test Item Value Reference Range Interpretation Comme [facility] SERUM IRON (test code = IRON) 140 MCG/DL 37-170 TOTAL IRON BINDING CAPACITY (test code = TIBC) 413 MCG/DL 265-497 IRON SATURATION (test code = FESAT) 34 % 12-57 : *(Hit ENTER to Con't) .FE W/TOTAL IRON BINDING CAP.2021-05-27 16:24:00* Test Item Value Reference Range Interpretation Comme [facility] SERUM IRON (test code = IRON) 140 MCG/DL 37-170 N TOTAL IRON BINDING CAPACITY (test code = TIBC) 413 MCG/DL 265-497 N IRON SATURATION (test code = FESAT) 34 % 12-57 N : *(Hit ENTER to Con't) .TOTAL IRON BINDING [id number] 16:14:00* Test Item Value Reference Range Interpretation Comme [facility] SERUM IRON (test code = IRON) 140 MCG/DL 37-170 TOTAL IRON BINDING CAPACITY (test code = TIBC) IRON SATURATION (test code = FESAT) : *(Hit ENTER to Con't) .FE W/TOTAL IRON BINDING CAP.2021-05-27 16:13:00* Test Item Value Reference Range Interpretation Comme [facility] SERUM IRON (test code = IRON) 140 MCG/DL 37-170 N TOTAL IRON BINDING CAPACITY (test code = TIBC) MCG/DL 265-497 IRON SATURATION (test code = FESAT) % 12-57 : *(Hit ENTER to Con't) .HGB [id number] 23:28:00* Test Item Value Reference Range Interpretation Comme nts HEMOGLOBIN (test code = HGB) 8.4 g/dL 10.1-13.8 L HEMATOCRIT (test code = HCT) 26.2 % 32.5-41.8 L UR CREATININE CLEARANCE [id number] 19:34:00* Test Item Value Reference Range Interpretation Comme nts CREATININE CLEARANCE RESULT (test code = CREATCLR) 104 ml/min 70-120 N CREATININE (test code = CREAT) 0.9 mg/dL 0.5-1.0 N UR CREATININE RANDOM (test c ode = CREATU) 52.9 mg/dL UR VOLUME (test code = VOL) 2590 ML UR PROTEIN [id number] 19:34:00* Test Item Value Reference Range Interpretation Comme nts UR PROTEIN RANDOM (test code = PROTU) 10.1 mg/dL UR PROTEIN 24HR (test code = WHMF25T) 262 mg/24HR 20-150 HH RESULTS CALLED Suad GARCIA READ BACK & CONFIRMED?YES .BY [id number] 05/24/211931.Units for 24 HR Urine Protein have changed: New Units = MG/24HR COMPREHENSIVE METABOLIC [id number] 23:29:00* Test Item Value Reference Range Interpretation [...] CA) 8.5 mg/dL 8.4-10.2 N RESULTS CALLED Suad VILLA.READ BACK & CONFIRMED? YES.BY [id number] 05/23/211930.Previously reported result: <5.0 mg/dLEdited by: [email or web address] on 05/23/21:2329CA prev. reported as:<5.0 *L mg/dL. RESULTS CALLED TO DAISY.. READ BACK & CONFIRMED? YES. BY [id number] 05/23/211930. BILIRUBIN TOTAL (test code = BILT) <0.1 mg/dL 0.2-1.0 L SGOT/AST (test code = AST) 2 units/L 15-37 L SGPT/ALT (test code = ALT) <6 units/L 12-78 L ALKALINE PHOSPHATASE TOTAL (test code = ALKP) 88 units/L 46-116 N COMPREHENSIVE METABOLIC [id number] 21:27:00* Test Item Value Reference Range Interpretation [...] CALLED Suad VILLA.READ BACK & CONFIRMED? YES.BY [id number] 05/23/211930. BILIRUBIN TOTAL (test code = BILT) <0.1 mg/dL 0.2-1.0 L SGOT/AST (test code = AST) 2 units/L 15-37 L SGPT/ALT (test code = ALT) <6 units/L 12-78 L ALKALINE PHOSPHATASE TOTAL (test code = ALKP) 88 units/L 46-116 N AG HEPATITIS B [id number] 20:55:00* Test Item Value Reference Range Interpretation Comme nts AG HEPATITIS B SURFACE (test code = HBSAG) NONREACTIVE NONREACTIVE AB HEPATITIS C [id number] 20:55:00* Test Item Value Reference Range Interpretation Comme nts AB HEPATITIS C (test code = HCVAB) NONREACTIVE NONREACTIVE SIGNAL TO CUTOFF (test code = CUTOFF) <0.02 <0.80 N AB [id number] 20:55:00* Test Item Value Reference Range Interpretation Comme nts AB TREPONEMA (test code = TREPAB) NONREACTIVE NONREACTIVE AB HIV 1 20:55:00* Test Item Value Reference Range Interpretation Comme nts AB HIV 1 2 (test code = [id number]) NONREACTIVE NONREACTIVE Done by [employer] HIV Ag/Ab Combo Screen AG HEPATITIS B [id number] 20:27:00* Test Item Value Reference Range Interpretation Comme nts AG HEPATITIS B SURFACE (test code = HBSAG) NONREACTIVE NONREACTIVE AB HEPATITIS C [id number] 20:27:00* Test Item Value Reference Range Interpretation Comme nts AB HEPATITIS C (test code = HCVAB) NONREACTIVE SIGNAL TO CUTOFF (test code = CUTOFF) <0.80 AB [id number] 20:27:00* Test Item Value Reference Range Interpretation Comme nts AB TREPONEMA (test code = TREPAB) NONREACTIVE NONREACTIVE AB HIV 1 20:27:00* Test Item Value Reference Range Interpretation Comme nts AB HIV 1 2 (test code = GNF06UR) NONREACTIVE COVID 19 Asymptomatic IH [id number] 20:17:00* Test Item Value Reference Range Interpretation [...] testsfor detection and/or diagnosis of COVID-19 under Tdbncgf797(b)(1) of the Act, 21 U.S.C. 360bbb-3(b)(1), unless theauthorization is terminated or revoked sooner. COMPREHENSIVE METABOLIC [id number] 19:31:00* Test Item Value Reference Range Interpretation [...] CALLED Suad VILLA.READ BACK & CONFIRMED? YES.BY [id number] 05/23/211930. BILIRUBIN TOTAL (test code = BILT) <0.1 mg/dL 0.2-1.0 L SGOT/AST (test code = AST) 2 units/L 15-37 L SGPT/ALT (test code = ALT) <6 units/L 12-78 L ALKALINE PHOSPHATASE TOTAL (test code = ALKP) units/L 46-116 CBC W/AUTO [id number] 19:31:00* Test Item Value Reference Range Interpretation [...] Previously re ported result: NORMAL Edited by: [id number] on 05/23/21:1925RBCM prev. reported as:NORMAL . . PLATELET MORPHOLOGY REQUIRED (test code = PLTMR) NORMAL NORMAL WBC [id number] 19:31:00* Test Item Value Reference Range Interpretation [...] de = PLTMORPH) NORMAL NORMAL CBC W/AUTO [id number] 19:24:00* Test Item Value Reference Range Interpretation [...] (test code = PLTMR) NORMAL NORMAL WBC [id number] 19:24:00* Test Item Value Reference Range Interpretation Comme nts SEGMENTED NEUTROPHILS (test code = SEG) % 56.5-79 .4 LYMPHOCYTE (test code = LYMPH) % 20-40 PIH [id number] 19:24:00* Test Item Value Reference Range Interpretation Comme nts CREATININE (test code = CREAT) 0.9 mg/dL 0.5-1.0 N SGOT/AST (test code = AST) 17 units/L 15-37 N SGPT/ALT (test code = ALT) 18 units/L 12-78 N LACTIC DEHYDROGENASE(LDH) (t est code = LDH) 159 units/L 81-234 N : *CBC W/AUTO [id number] 19:24:00* Test Item Value Reference Range Interpretation [...] (test code = PLTMR) NORMAL NORMAL WBC [id number] 19:24:00* Test Item Value Reference Range Interpretation Comme nts SEGMENTED NEUTROPHILS (test code = SEG) % 56.5-79 .4 LYMPHOCYTE (test code = LYMPH) % 20-40 Coronavirus 2019 nCoV [id number] 15:44:00* Test Item Value Reference Range Interpretation Comme nts Coronavirus 2019 nCoV Bedside (test code = [id number]) Negative Negative This result does not rule out co-infections with otherpathogens. * False negative results may occur if a specimen isimproperly collected, transported or handled. False negativeresults may also occur if amplification inhibitors arepresent in the specimen or if inadequate levels of virusesare present in the specimen. * As with any molecular test, if the virus mutates in thetarget region, COVID-19 may not be detected or may bedetected less predictably.TEST PERFORMED UNDER AN EMERGENCY USE AUTHORIZATION FROM [facility] URINALYSIS [id number] 13:59:00* Test Item Value Reference Range Interpretation [...] NONE SEEN URINE SAMPLE: CLEAN CATCH- US [id number] 00:00:00 [facility] : 1990 Sex: F Patient Name: AICHA BARNES Unit No: [id number] EXAMS: CPT CODE: [id number] US LTD 74320 PROCEDURE INFORMATION: Exam: US , Limited and [...] Technologist: Kassie Toledo RDMS Probe: Trnscrbd D/ (1504) GCD.CPS Orig Print D/T: S: 05/08/2021 (1504) [facility] NAME: AICHA BARNES Radiology Department PHYS: Patricia Hernandez MD [address] : 1990 AGE: 31 SEX:F [place], [place] [address] LOC: Shayna.EARL PHONE #: [phone] EXAM DATE: 05/08/2021 STATUS: REG ER FAX #: [phone] RAD NO: Page 1 Signed Report Patient Name: MOLLYAICHA VELAZCON Unit No: [id number] EXAMS: CPT CODE: [id number] LTD 51433 (Continued) [facility] NAME: AIHCA BARNES Radiology Department PHYS: Patricia Hernandez MD [address] : 1990 AGE: 31 SEX: F [place], [place] [address] LOC: HirenEARL PHONE #: [phone] EXAM DATE: 05/08/2021 STATUS: REG ER FAX #: [phone] RAD NO: Page 2 Signed Report- US PREG UT [id number] 00:00:00 [facility] 1990 Sex: F Patient Name: AICHA BARNES Unit No: [id number] EXAMS: CPT CODE: [id number] US PREG UT TRANSVAGINAL 66771 PROCEDURE INFORMATION: Exam: US , Limited and US , Transvaginal Exam date and time: 05/08/2021 2:06 PM Age: 31 years old Clinical indication: Lmp or gestational age (in weeks): 24w2d; Other: Contractions; ; Prior surgery; Surgery date: 6+ months; Surgery type: C- section x2; Additional info: Iup at 24.1 weeks C/O abd pain and lower back pain poor TECHNIQUE: Imaging protocol: Real-time ultrasound of the maternal uterus with image documentation. Transvaginal imaging was used for better evaluation of the fetus, adnexa, and/or cervix. Exam focused on the clinical indication. COMPARISON: No relevant prior studies available. FINDINGS: Last menstrualperiod: 11/19/2020. Beta HCG: Unknown. Gestation: Intrauterine gestation sac identified. Single fetus is identified. heart rate: cardiac motion: 141 beats per minute. Presentation: Transverse. The head is positioned towards the maternal left side. Placenta: Placenta location: Poste rior fundus. Placenta grade: 1. No evidence for [...] Vargas DO Technologist: Kassie Toledo RDMS Probe: [id number] Trnscrbd D/ (1504) GCD.CPS Orig Print D/T: S: 05/08/2021 (1504) [facility] NAME: AICHA BARNES Radiology Department PHYS: Ira More DO [address] :1990 AGE: 31 SEX: F [place] [address] LOC: HirenEARL PHONE #: [phone] EXAM DATE: 05/08/2021 STATUS: REG ER FAX #: [phone] RAD NO: Page 1 Signed Report Patient Name: AICHA BARNES Unit No: [id number] EXAMS: CPT CODE: [id number] [facility] UT TRANSVAGINAL [address]761 (Continued) [facility] NAME: AICHA BARNES SHANON Radiology Department PHYS: Ira More DO [address] : 1990 AGE: 31 SEX: F [place] [address] LOC: HirenEARL PHONE #: [phone] EXAM DATE: 05/08/2021 STATUS: REG ER FAX #: [phone] RAD NO: Page 2 Signed Report
--- NOTE | 2024-10-07 17:14 | EDPHYS ---
Physician Documentation [facility] Name: Melchor Roblero Age: 34 yrs Sex: Female : 1990 Arrival Date: 10/07/2024 Time: 16:29 Bed 11 Private MD: ED Physician Jonathan Nj HPI: 10/07 16:51 This 34 yrs old Female presents to ER via Unassigned with complaints of ec2 Abscess. 16:51 Patient arrives today for evaluation of a wound on her buttock. Reports that she is ec2 been having a wound to the buttock area ongoing for approximately 4 to 5 months, is having pain in the area. Reports no fevers or chills, no nausea or vomiting. Reports some irritation to the area. Denies any drainage. Has not been evaluated for this over this timeframe.. Historical: - Allergies: 17:05 No Known Allergies; hb - Home Meds: 17:07 Iron CR Oral three times a day [Active]; hb - PMHx: 17:05 Anemia; hb - PSHx: 17:05 section; hb - Immunization history:: Adult Immunizations up to date. - Infectious Disease History:: Denies. - Social history:: Smoking status: Patient denies any tobacco usage or history of. ROS: 16:51 Constitutional: as per hpi ec2 Exam: 16:51 Constitutional: GEN: NAD Head: atraumatic Eyes: EOMI Ears: External ears are ec2 normal. CV: regular rate LUNGS: no respiratory distress ABD: non-distended SKIN: no evidence of rashes MSK: no evidence of trauma Vital Signs: 16:50 BP 143 / 83; Pulse 88; Resp 16; Temp 98.5; Pulse Ox 100% ; Pain 10/10; hb 16:50 Pain Scale: Adult hb MDM: 16:51 Data reviewed: vital signs, nurses notes. ED course: Patient arrives today for ec2 evaluation of a wound to the buttock area. Examination is unrevealing. Initially visited patient in triage, pending room placement to evaluate the buttock region.. 17:01 Medical Screening Exam initiated ec2 17:12 ED course: examination performed under supervision by RNSasha. Patient with ec2 multiple verrucous warts in the right buttock area without surrounding erythema or warmth or fluctuance appreciated, no discharge noted. This appears most consistent with HPV, will have the patient follow-up expectantly will prescribe the patient medication for pain.. 10/07 17:14 Order name: Ashley. Order: apply lido to gauze and place to affected area; Complete Time: ec2 17:18 Administered Medications: 17:18 Drug: Viscous Lidocaine Mucous Membrane Liquid (4 %) 10 ml Mucous Membrane once Route: hb Mucous Membrane; Disposition Summary: 10/07/24 17:14 Discharge Ordered Notes: Location: Home ec2 Condition: Stable ec2 Diagnosis - Buttock Warts ec2 Followup: ec2 - With: Private Physician - When: - Reason: Re-evaluation by your physician Discharge Instructions: - Discharge Summary Sheet ec2 - Human Papillomavirus, [id number] ec2 Forms: - Medication Reconciliation Form ec2 - Antibiotic Education ec2 - Prescription Opioid Use ec2 - Patient Portal Instructions ec2 - Leadership Thank You Letter ec2 Prescriptions: - acetaminophen-codeine 300-30 mg Oral tablet - take 1 tablet ORAL route every 12 hours; 10 tablet; Refills: 0, Product ec2 Selection Permitted - lidocaine 4 % gel - apply 1 application TOPICAL route 1 to 3 times daily as needed for pain; 15 ec2 gram tube; Refills: 0, Product Selection Permitted Signatures: Sasha Gong RN RN Jonathan Nj MD MD ec2 Corrections: (The following items were deleted from the chart) 16:52 16:51 Patient arrives today for evaluation of a wound on her buttock. Reports that she ec2 is been having a wound ongoing for approximately 4 to 5 months, is having pain in the area. Reports no fevers or chills, no nausea or vomiting. Reports some irritation to the area. Denies any drainage. Has not been evaluated for this over this timeframe.. ec2
--- NOTE | 2024-10-07 17:14 | ER ---
Nurse's Notes [facility] Name: Melchor Roblero Age: 34 yrs Sex: Female : 1990 Arrival Date: 10/07/2024 Time: 16:29 Bed 11 Private MD: Diagnosis: Buttock Warts Presentation: 10/07 16:50 Chief complaint: Painful rash on buttock x 2 months. Coronavirus screen: At this time, hb the client does not indicate any symptoms associated with coronavirus-19. Ebola Screen: No symptoms or risks identified at this time. Initial Sepsis Screen: Does the patient meet any 2 criteria? No. Patient's initial sepsis screen is negative. Does the patient have a suspected source of infection? No. Patient's initial sepsis screen is negative. Risk Assessment: Do you want to hurt yourself or someone else? Patient reports no desire to harm self or others. Onset of symptoms was October 07, 2024. 16:50 Method Of Arrival: Ambulatory hb 16:50 Acuity: SANA 4 hb Historical: - Allergies: 17:05 No Known Allergies; hb - Home Meds: 17:07 Iron CR Oral three times a day [Active]; hb - PMHx: 17:05 Anemia; hb - PSHx: 17:05 section; hb - Immunization history:: Adult Immunizations up to date. - Infectious Disease History:: Denies. - Social history:: Smoking status: Patient denies any tobacco usage or history of. Screenin:06 [facility] ED Fall Risk Assessment (Adult) History of falling in the last 3 months, hb including since admission No falls in past 3 months (0 pts) Confusion or Disorientation No (0 pts) Intoxicated or Sedated No (0 pts) Impaired Gait No (0 pts) Mobility Assist Device Used No (0 pt) Altered Elimination No (0 pt) Score/Fall Risk Level 0 - 2 = Low Risk Oriented to surroundings, Maintained a safe environment, Educated pt \T\ family on fall prevention, incl call for assistance when getting out of bed. Abuse screen: Denies threats or abuse. Denies injuries from another. Nutritional screening: No deficits noted. Tuberculosis screening: No symptoms or risk factors identified. Assessment: 17:07 General: Appears in no apparent distress. Behavior is calm, cooperative. Pain: Pain hb currently is 10 out of 10 on a pain scale. Neuro: CGS 15. Vital Signs: 16:50 BP 143 / 83; Pulse 88; Resp 16; Temp 98.5; Pulse Ox 100% ; Pain 10/10; hb 16:50 Pain Scale: Adult hb ED Course: 16:32 Patient arrived in ED. mr 16:33 Jonathan Nj MD is Attending Physician. ec2 16:33 Amelia Philip PA-C is [facility]. sb4 17:05 Triage completed. hb 17:06 Arm band placed on. hb 17:06 Patient has correct armband on for positive identification. Provided Education on: use hb of call light. 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 Patient did not have IV access during this emergency room visit. Administered Medications: 17:18 Drug: Viscous Lidocaine Mucous Membrane Liquid (4 %) 10 ml Mucous Membrane once Route: hb Mucous Membrane; Medication: 17:06 VIS not applicable for this client. hb Outcome: 17:14 Discharge ordered by . ec2 17:43 Patient left the ED. Signatures: Lois Dalton, Reg Reg mr GongSasha, RN RN Amelia Burch PA-C PASandra sb4 Jonathan Nj MD MD ec2
[2024-10-07] MEDS ORDERED: LIDOCAINE VISCOUS 2% 10ML ORAL SOLN ONE (17:21)
[2024-10-07 18:03] VITALS: BP 143/83; TEMP 98.5; O2SAT 100
== END 2024-10-07 17:43 | disposition home or self-care (01) ==
LOC: ER 16:29
DX: B07.9 Viral wart, unspecified (principal)
CPT/HCPCS: 99282